=== PATIENT | male | born 1970 | race Caucasian/White ===

== ENCOUNTER → 2018-04-09 09:24 | Outpatient (CLI) | payer BC, SELFPAY ==
[2018-04-09 10:00] LABS: Basophils % 0.3 % (0.1-2.0); Eosinophils # 0.1 K/mm3 (0.0-0.4); Eosinophils % 1.1 % (0.1-12.0); Hematocrit 47.9 % (42.0-52.0); Hemoglobin 15.6 g/dL (14.1-18.0); Lymphocytes # 2.6 K/mm3 (0.7-4.5); Mean Corpuscular HGB Conc 32.6 g/dL (31.8-35.4); Mean Corpuscular Hemoglobin 28.7 pg (27.0-31.2); Mean Platelet Volume 7.9 fl (7.4-10.4); Monocytes # 0.3 K/mm3 (0.1-1.0); Monocytes % 3.1 % (1.7-9.3); Neutrophils # 5.9 K/mm3 (1.8-7.8); Neutrophils % 66.5 % (37.0-80.0); Platelet Count 196 K/mm3 (142-424); Red Blood Count 5.44 M/mm3 (4.60-6.20); Red Cell Distribution Width 13.3 % (11.5-17.5); White Blood Count 8.8 K/mm3 (4.8-10.8)
[2018-04-09 11:02] LABS: Hemoglobin A1C 11.1 % (0.0-7.0)
[2018-04-09 11:24] LABS: Alanine Aminotransferase 22 U/L (12-78); Albumin Level 3.9 gm/dL (3.4-5.0); Alkaline Phosphatase 70 U/L (46-116); Anion Gap 14.5 mEq/L (5-15); Aspartate Amino Transferase 10 U/L (15-37); Bilirubin,Total 0.6 mg/dL (0.2-1.0); Blood Urea Nitrogen 12 mg/dL (7-18); Carbon Dioxide 28 mmol/L (21.0-32.0); Chloride 101 mmol/L (98-107); Chol/HDL Ratio 3.8 (1-3.5); Cholesterol 138 mg/dL (140-200); Creatinine,Serum 0.79 mg/dL (0.70-1.30); Estimated Glomerular Filt Rate 105 ml/min (>60); GFR (African American) 127 ML/MIN (>60); Globulin 4.1 gm/dl (1.3-3.2); Glucose 295 mg/dL (74-106); HDL Cholesterol 36 mg/dL (27-67); LDL Cholesterol 59 mg/dL (0-130); Potassium 4.5 mmoL/L (3.5-5.1); Sodium 139 mmol/L (136-145); T4 (Thyroxine) 10.4 ug/dl (4.7-13.3); Thyroid Stimulating Hormone 2.95 uIU/ml (0.358-3.740); Triglycerides 216 mg/dL (30-200); VLDL Cholesterol 43 mg/dL (0-40)
== END ==
PROVIDERS: Visit Provider Physician Assistant
DX: E11.9 Type 2 diabetes mellitus without complications (principal); E78.5 Hyperlipidemia, unspecified; E03.9 Hypothyroidism, unspecified; E55.9 Vitamin D deficiency, unspecified
CPT/HCPCS: 36415; 80053; 80061; 82652; 83036; 84436; 84443; 85025

== ENCOUNTER → 2018-06-19 09:10 | Outpatient (CLI) | payer BC, SELFPAY ==
[2018-06-19 11:35] LABS: Hemoglobin A1C 10.1 % (0.0-7.0)
== END ==
PROVIDERS: PCP Physician Assistant; Visit Provider Physician Assistant
DX: E11.9 Type 2 diabetes mellitus without complications (principal)
CPT/HCPCS: 36415; 83036

== ENCOUNTER 2019-02-22 08:01 | Emergency (ER) | payer BC, SELFPAY ==
[2019-02-22 08:09] VITALS: BP 157/98; PULSE 108; RESP 18; TEMP 36.9; O2SAT 95; BMI 33.2
--- NOTE | 2019-02-22 08:14 | CT_ITS ---
CT abdomen pelvis wo con CLINICAL INDICATION: Left flank pain, left lower back pain ITS.REASON: left flank ORDERING PHYSICIAN: Kam Scruggs MD PATIENT AGE: 49 years COMPARISON: 03/10/2016 TECHNIQUE: Axial images obtained with sagittal and coronal reformats. All CT scans at the facility use one or more dose reduction, viz: automated exposure control, ma/kV adjustment per patient size (including targeted exams where dose is matched to indication, i.e. head), or iterative reconstruction technique. PROCEDURE: Oral Contrast: None IV Contrast: None . FINDINGS: Lung base images show coronary artery calcifications and gynecomastia. The left hemidiaphragm is somewhat elevated not significant changed. The liver, gallbladder, spleen, adrenal glands, pancreas, and kidneys have an unremarkable unenhanced appearance. No renal or ureteral calculi. No hydronephrosis. Unremarkable appendix. No intestinal obstruction or free air. There is diverticulosis of the sigmoid colon but no evidence of diverticulitis. There is a small right inguinal hernia which contains fat. No acute bony anomalies. IMPRESSION: 1. No acute abdominal or pelvic findings. 2. Small right inguinal hernia containing fat. 3. Coronary artery calcifications. 4. Gynecomastia
--- NOTE | 2019-02-22 08:15 | CT_ITS ---
CT lumbar spine wo con INDICATION: Low back pain ITS.REASON: pain ORDERING PHYSICIAN: Kam Scruggs MD PATIENT AGE: 49 years COMPARISON: None TECHNIQUE: Axial images obtained with sagittal and coronal reformats. All CT scans at the facility use one or more dose reduction, viz: automated exposure control, ma/kV adjustment per patient size (including targeted exams where dose is matched to indication, i.e. head), or iterative reconstruction technique. FINDINGS: There is normal alignment. Mild degenerative disc disease T10-T11 and T11-T12. Minimal bulging disc L2-L3 with mild degenerative disc disease L3-L4: Unremarkable. L4-5: Normal bulging disc eccentric toward the left with mild facet and ligamentum flavum hypertrophy with mild left lateral recess narrowing. L5-S1: Minimal bulging disc. The SI joints have an unremarkable appearance. No fracture or dislocation. No lytic or blastic change. IMPRESSION: 1. Lumbar spondylosis with mild bulging disc and degenerative disc disease at L2-L3 and mild bulging disc at L4-5 slightly eccentric toward the left with minimal bulging disc at L5-S1. 2. No acute fracture or other acute anomaly
--- NOTE | 2019-02-22 08:16 | [facility].EDGENADL ---
ED Disposition Clinical Impression: Pyelonephritis Strain of lumbar region Qualifiers: Encounter type: initial encounter Qualified Code(s): S39.012A - Strain of muscle, fascia and tendon of lower back, initial encounter Disposition: Home, Self-Care Condition on Discharge: Good Instructions: DI for Low Back Pain Prescriptions: levoFLOXacin [Levaquin 500mg tab] 500 mg PO DAILY #10 tab Pantoprazole Sodium [Protonix 40mg tablet] 40 mg PO DAILY 30 Days #30 tab Referrals: Hilaria Zhong PA [Primary Care Provider] - - Critical Care Critical Care Time: No Attestation: On 02/22/19, the high probability of a clinically significant, sudden or life threatening deterioration of the following system(s) required my full and direct attention, intervention and personal management. The time I documented below is in addition to time spent performing reported procedures but includes the following listed in this critical care notation. Medical Decision Making - Medical Records Medical records reviewed: Yes: I reviewed the patient's medical records. - [place] Inquiry Pt receiving controlled substance: No Vital Signs: 02/22/19 08:09 02/22/19 10:06 Temperature 98.5 F Temperature Source Oral Pulse Rate [Right Radial] 108 H 104 H Respiratory Rate 18 18 Blood Pressure [Right Arm] 157/98 H 155/89 H Blood Pressure Mean [Right Arm] 117 111 Blood Pressure Source [Right Arm] Automatic Cuff Automatic Cuff Blood Pressure Position [Right Arm] Sitting Sitting 02 Sat by Pulse Oximetry 95 95 Oxygen Delivery Method Room Air Room Air - Lab Data Lab results reviewed: Yes: I reviewed the patient's lab results. Lab Results 02/22/19 08:30: WBC 11.1 H, RBC 5.54, Hgb 16.8, Hct 47.7, MCV 86.0, MCH 30.3, MCHC 35.2, RDW 13.4, Plt Count 228, MPV 7.8, Neut % (Auto) 72.1, Lymph % (Auto) 22.9, [place] % (Auto) 3.0, Eos % (Auto) 1.5, Baso % (Auto) 0.5, Neut # (Auto) 8.0 H, Lymph # (Auto) 2.5, [place] # (Auto) 0.3, Eos # (Auto) 0.2, Baso # (Auto) 0.1 02/22/19 08:30: Sodium 128 L, Potassium 4.7, Chloride 90 L, Carbon Dioxide 28, Anion Gap 14.7, BUN 15, Creatinine 1.07, Estimated Creat Clear 133, Estimated GFR 74, Est GFR ( Amer) 89, Glucose 467 H*, Calcium 8.9, Total Bilirubin 0.8, AST 15, ALT 25, Alkaline Phosphatase 76, Total Protein 8.1, Albumin 3.6, Globulin 4.5 H, Albumin/Globulin Ratio 0.8 L, Lipase 436 H 02/22/19 08:30: PT 9.7, INR 0.93 02/22/19 08:35: Urine Color Yellow, Urine Appearance Clear, Urine pH 6.0, Ur Specific [place] <= 1.005, Urine Protein Negative, Urine Glucose (UA) 3+, Urine Ketones Negative, Urine Blood Negative, Urine Nitrate Negative, Urine Bilirubin Negative, Urine Urobilinogen 0.2, Ur Leukocyte Esterase Negative, Urine WBC Occasional, Urine Bacteria 1+ 02/22/19 08:59: Stool Occult Blood Positive A Result diagrams: 02/22/19 08:30 02/22/19 08:30 - CT Data CT Scan: Abdomen, Pelvis, L-Spine Time Received: 10:31 (lumbar bulging disc, no obstruction, no free air) ED CT Reviewed: Yes: I have viewed the radiologist's interpretation Medical Decision Narrative: differential d/w pt as cancer, diverticulitis, uti/pyelonephritis, occult renal stone, pud, pancreatitis, hyperglycemia, back strain, protonix, levaquin, motrin, ice,rest, see your doctor, return if worse General Adult HPI - General Chief complaint: Back Pain/Injury Stated complaint: Back Pain severe and blood in stool Time Seen by Provider: 02/22/19 08:16 Mode of Arrival: Ambulatory Limitations: No Limitations Description of Symptoms (Recalled from ER Triage Doc. by RN): Pt reports lower L sided back pain x3 weeks, pt describes pain as constant in nature, reports pain worsens with position changes. Pt reports he had moved a dresser a few weeks ago which is why he thought his back was hurting. Pt reports he had blood noted in his stool lastnight, denies difficulty having BM. - History of Present Illness HPI narrative: mild to mod ache left flank for
--- NOTE | 2019-02-22 08:19 | ED_ITS ---
ED Disposition Clinical Impression: Pyelonephritis Strain of lumbar region Qualifiers: Encounter type: initial encounter Qualified Code(s): S39.012A - Strain of muscle, fascia and tendon of lower back, initial encounter Disposition: Home, Self-Care Condition on Discharge: Good Instructions: DI for Low Back Pain Prescriptions: levoFLOXacin [Levaquin 500mg tab] 500 mg PO DAILY #10 tab Pantoprazole Sodium [Protonix 40mg tablet] 40 mg PO DAILY 30 Days #30 tab Referrals: Hilaria Zhong PA [Primary Care Provider] - - Critical Care Critical Care Time: No Attestation: On 02/22/19, the high probability of a clinically significant, sudden or life threatening deterioration of the following system(s) required my full and direct attention, intervention and personal management. The time I documented below is in addition to time spent performing reported procedures but includes the following listed in this critical care notation. Medical Decision Making - Medical Records Medical records reviewed: Yes: I reviewed the patient's medical records. - [place] Inquiry Pt receiving controlled substance: No Vital Signs: 02/22/19 08:09 02/22/19 10:06 Temperature 98.5 F Temperature Source Oral Pulse Rate [Right Radial] 108 H 104 H Respiratory Rate 18 18 Blood Pressure [Right Arm] 157/98 H 155/89 H Blood Pressure Mean [Right Arm] 117 111 Blood Pressure Source [Right Arm] Automatic Cuff Automatic Cuff Blood Pressure Position [Right Arm] Sitting Sitting 02 Sat by Pulse Oximetry 95 95 Oxygen Delivery Method Room Air Room Air - Lab Data Lab results reviewed: Yes: I reviewed the patient's lab results. Lab Results 02/22/19 08:30: WBC 11.1 H, RBC 5.54, Hgb 16.8, Hct 47.7, MCV 86.0, MCH 30.3, MCHC 35.2, RDW 13.4, Plt Count 228, MPV 7.8, Neut % (Auto) 72.1, Lymph % (Auto) 22.9, [place] % (Auto) 3.0, Eos % (Auto) 1.5, Baso % (Auto) 0.5, Neut # (Auto) 8.0 H, Lymph # (Auto) 2.5, [place] # (Auto) 0.3, Eos # (Auto) 0.2, Baso # (Auto) 0.1 02/22/19 08:30: Sodium 128 L, Potassium 4.7, Chloride 90 L, Carbon Dioxide 28, Anion Gap 14.7, BUN 15, Creatinine 1.07, Estimated Creat Clear 133, Estimated GFR 74, Est GFR ( Amer) 89, Glucose 467 H*, Calcium 8.9, Total Bilirubin 0.8, AST 15, ALT 25, Alkaline Phosphatase 76, Total Protein 8.1, Albumin 3.6, Globulin 4.5 H, Albumin/Globulin Ratio 0.8 L, Lipase 436 H 02/22/19 08:30: PT 9.7, INR 0.93 02/22/19 08:35: Urine Color Yellow, Urine Appearance Clear, Urine pH 6.0, Ur Specific [place] <= 1.005, Urine Protein Negative, Urine Glucose (UA) 3+, Urine Ketones Negative, Urine Blood Negative, Urine Nitrate Negative, Urine Bilirubin Negative, Urine Urobilinogen 0.2, Ur Leukocyte Esterase Negative, Urine WBC Occasional, Urine Bacteria 1+ 02/22/19 08:59: Stool Occult Blood Positive A Result diagrams: 02/22/19 08:30 02/22/19 08:30 - CT Data CT Scan: Abdomen, Pelvis, L-Spine Time Received: 10:31 (lumbar bulging disc, no obstruction, no free air) ED CT Reviewed: Yes: I have viewed the radiologist's interpretation Medical Decision Narrative: differential d/w pt as cancer, diverticulitis, uti/pyelonephritis, occult renal stone, pud, pancreatitis, hyperglycemia, back strain, protonix, levaquin, motrin, ice,rest, see your doctor, return if worse General Adult HPI - General Chief complaint: Back Pain/Injury
[2019-02-22 08:39] LABS: Basophils # 0.1 K/mm3 (0-0.2); Basophils % 0.5 % (0.1-2.0); Eosinophils # 0.2 K/mm3 (0.0-0.4); Eosinophils % 1.5 % (0.1-12.0); Hematocrit 47.7 % (42.0-52.0); Hemoglobin 16.8 g/dL (14.1-18.0); Lymphocytes # 2.5 K/mm3 (0.7-4.5); Lymphocytes % 22.9 % (10-50); Mean Corpuscular HGB Conc 35.2 g/dL (31.8-35.4); Mean Corpuscular Hemoglobin 30.3 pg (27.0-31.2); Mean Platelet Volume 7.8 fl (7.4-10.4); Monocytes # 0.3 K/mm3 (0.1-1.0); Neutrophils % 72.1 % (37.0-80.0); Platelet Count 228 K/mm3 (142-424); Red Blood Count 5.54 M/mm3 (4.60-6.20); Red Cell Distribution Width 13.4 % (11.5-17.5); White Blood Count 11.1 K/mm3 (4.8-10.8)
[2019-02-22 08:41] LABS: Microscopic, Urine URINE MICROSCOPIC (MICROSCOPIC)
[2019-02-22 08:42] LABS: Appearance,Urine CLEAR (Clear); Bilirubin,Urine Negative (Negative); Blood, Urine Negative (Negative); Color,Urine YELLOW (Yellow); Glucose,Urine (UA) 3+ (Negative); Ketones,Urine Negative (Negative); Leukocyte Esterase,Urine Negative (Negative); Nitrate,Urine Negative (Negative); Protein,Urine Negative (Negative); Specific Gravity, Urine <= 1.005 (1.005-1.030); Urobilinogen,Urine 0.2 EU/dl (0.2)
[2019-02-22 08:47] LABS: INR 0.93 (0.9-1.1); Prothrombin Time 9.7 seconds (9.4-11.8)
[2019-02-22 08:53] LABS: Alanine Aminotransferase 25 U/L (12-78); Albumin Level 3.6 gm/dL (3.4-5.0); Albumin/Globulin Ratio 0.8 (1.1-1.8); Alkaline Phosphatase 76 U/L (46-116); Anion Gap 14.7 mEq/L (5-15); Aspartate Amino Transferase 15 U/L (15-37); Bilirubin,Total 0.8 mg/dL (0.2-1.0); Blood Urea Nitrogen 15 mg/dL (7-18); Calcium 8.9 mg/dL (8.5-10.1); Carbon Dioxide 28 mmol/L (21.0-32.0); Chloride 90 mmol/L (98-107); Creatinine Clearance Estimated 133 mL/min (50-200); Creatinine,Serum 1.07 mg/dL (0.70-1.30); Estimated Glomerular Filt Rate 74 ml/min (>60); GFR (African American) 89 ML/MIN (>60); Globulin 4.5 gm/dl (1.3-3.2); Lipase 436 u/L (73-393); Potassium 4.7 mmoL/L (3.5-5.1); Sodium 128 mmol/L (136-145); Total Protein,Serum 8.1 gm/dL (6.4-8.2)
[2019-02-22 08:54] LABS: Glucose 467 mg/dL (74-106)
[2019-02-22 08:57] LABS: Bacteria,Urine 1+ /lpf; WBC,Urine Occasional #/hpf (0-3)
[2019-02-22 09:05] LABS: Occult Blood,Stool Positive (Negative)
--- NOTE | 2019-02-22 09:12 | PC.NURSE ---
Pt to rad.
[2019-02-22 10:06] VITALS: BP 155/89; PULSE 104; RESP 18; O2SAT 95
--- NOTE | 2019-02-22 10:54 | PC.NURSE ---
waiting production support manager back from Hospitalist at [facility] stated they do not have beds available but could place pt on waiting list
[2019-02-22 11:51] VITALS: BP 167/95; PULSE 105; RESP 17; TEMP 36.4; O2SAT 97
== END 2019-02-22 11:52 | disposition home or self-care (01) ==
PROVIDERS: Emergency Provider Emergency Medicine Emergency Medical Services; PCP Physician Assistant
DX: N12 Tubulo-interstitial nephritis, not specified as acute or chronic (principal); S39.012A Strain of muscle, fascia and tendon of lower back, initial encounter; X50.0XXA Overexertion from strenuous movement or load, initial encounter; Y92.019 Unspecified place in single-family (private) house as the place of occurrence of the external cause; E11.65 Type 2 diabetes mellitus with hyperglycemia; Z79.84 Long term (current) use of oral hypoglycemic drugs; E78.5 Hyperlipidemia, unspecified; I10 Essential (primary) hypertension; E03.9 Hypothyroidism, unspecified; F17.210 Nicotine dependence, cigarettes, uncomplicated; Z88.0 Allergy status to penicillin
CPT/HCPCS: 72131; 74176; 80053; 81001; 82272; 83690; 85025; 85610; 96365; 96372; 96375; 99283; G0328; J1956

== ENCOUNTER → 2019-03-11 19:52 | Outpatient (CLI) | payer BC, SELFPAY ==
[2019-03-11 20:44] LABS: Basophils % 0.4 % (0.1-2.0); Eosinophils # 0.1 K/mm3 (0.0-0.4); Eosinophils % 0.6 % (0.1-12.0); Hematocrit 48.3 % (42.0-52.0); Hemoglobin 15.7 g/dL (14.1-18.0); Lymphocytes % 27.7 % (10-50); Mean Corpuscular HGB Conc 32.5 g/dL (31.8-35.4); Mean Corpuscular Hemoglobin 28.4 pg (27.0-31.2); Mean Corpuscular Volume 87.2 fl (80-94); Mean Platelet Volume 9.2 fl (7.4-10.4); Monocytes # 0.2 K/mm3 (0.1-1.0); Monocytes % 3.4 % (1.7-9.3); Neutrophils # 4.9 K/mm3 (1.8-7.8); Neutrophils % 67.9 % (37.0-80.0); Platelet Count 184 K/mm3 (142-424); Red Blood Count 5.54 M/mm3 (4.60-6.20); Red Cell Distribution Width 13.1 % (11.5-17.5); White Blood Count 7.2 K/mm3 (4.8-10.8)
[2019-03-11 21:12] LABS: Albumin Level 3.5 gm/dL (3.4-5.0); Albumin/Globulin Ratio 0.8 (1.1-1.8); Alkaline Phosphatase 81 U/L (46-116); Anion Gap 14.6 mEq/L (5-15); Bilirubin,Total 0.4 mg/dL (0.2-1.0); Blood Urea Nitrogen 12 mg/dL (7-18); Carbon Dioxide 29 mmol/L (21.0-32.0); Chloride 95 mmol/L (98-107); Chol/HDL Ratio 7.5 (1-3.5); Cholesterol 248 mg/dL (140-200); Creatinine,Serum 0.83 mg/dL (0.70-1.30); Estimated Glomerular Filt Rate 99 ml/min (>60); GFR (African American) 120 ML/MIN (>60); Globulin 4.2 gm/dl (1.3-3.2); HDL Cholesterol 33 mg/dL (27-67); Potassium 4.6 mmoL/L (3.5-5.1); Sodium 134 mmol/L (136-145); T4 (Thyroxine) 8.7 ug/dl (4.7-13.3); Thyroid Stimulating Hormone 2.57 uIU/ml (0.358-3.740); Total Protein,Serum 7.7 gm/dL (6.4-8.2)
[2019-03-11 22:39] LABS: Hemoglobin A1C 10.3 % (0.0-7.0)
[2019-03-11 23:06] LABS: Alanine Aminotransferase 28 U/L (12-78)
[2019-03-11 23:12] LABS: Glucose 510 mg/dL (74-106)
[2019-03-11 23:13] LABS: Triglycerides 1125 mg/dL (30-200)
[2019-03-11 23:14] LABS: Aspartate Amino Transferase 15 U/L (15-37)
[2019-03-14 07:45] LABS: Vitamin D 25 Hydroxy 10.5 ng/mL (30.0-100.0)
== END ==
PROVIDERS: Visit Provider Physician Assistant
DX: E11.9 Type 2 diabetes mellitus without complications (principal); E03.9 Hypothyroidism, unspecified; E55.9 Vitamin D deficiency, unspecified
CPT/HCPCS: 80053; 80061; 82652; 83036; 84436; 84443; 85025

== ENCOUNTER → 2019-07-08 09:08 | Outpatient (CLI) | payer BC, SELFPAY ==
[2019-07-08 09:46] LABS: Basophils % 0.4 % (0.1-2.0); Eosinophils # 0.1 K/mm3 (0.0-0.4); Eosinophils % 0.9 % (0.1-12.0); Hematocrit 51.4 % (42.0-52.0); Hemoglobin 16.6 g/dL (14.1-18.0); Lymphocytes # 2.2 K/mm3 (0.7-4.5); Lymphocytes % 19.9 % (10-50); Mean Corpuscular HGB Conc 32.3 g/dL (31.8-35.4); Mean Corpuscular Hemoglobin 29.8 pg (27.0-31.2); Mean Corpuscular Volume 92.1 fl (80-94); Mean Platelet Volume 8.8 fl (7.4-10.4); Monocytes # 0.5 K/mm3 (0.1-1.0); Monocytes % 4.6 % (1.7-9.3); Neutrophils % 74.2 % (37.0-80.0); Platelet Count 255 K/mm3 (142-424); Red Blood Count 5.58 M/mm3 (4.60-6.20); Red Cell Distribution Width 13.8 % (11.5-17.5); White Blood Count 10.8 K/mm3 (4.8-10.8)
[2019-07-08 10:24] LABS: Alanine Aminotransferase 17 U/L (12-78); Albumin Level 3.9 gm/dL (3.4-5.0); Albumin/Globulin Ratio 0.9 (1.1-1.8); Alkaline Phosphatase 83 U/L (46-116); Anion Gap 15.2 mEq/L (5-15); Aspartate Amino Transferase 16 U/L (15-37); Bilirubin,Total 0.6 mg/dL (0.2-1.0); Blood Urea Nitrogen 11 mg/dL (7-18); Calcium 9.6 mg/dL (8.5-10.1); Carbon Dioxide 29 mmol/L (21.0-32.0); Chloride 94 mmol/L (98-107); Chol/HDL Ratio 5.4 (1-3.5); Cholesterol 198 mg/dL (140-200); Creatinine,Serum 0.78 mg/dL (0.70-1.30); Estimated Glomerular Filt Rate 106 ml/min (>60); GFR (African American) 129 ML/MIN (>60); Globulin 4.4 gm/dl (1.3-3.2); Glucose 308 mg/dL (74-106); HDL Cholesterol 37 mg/dL (27-67); Potassium 4.2 mmoL/L (3.5-5.1); Sodium 134 mmol/L (136-145); T4 (Thyroxine) 10.3 ug/dl (4.7-13.3); Thyroid Stimulating Hormone 3.58 uIU/ml (0.358-3.740); Total Protein,Serum 8.3 gm/dL (6.4-8.2)
[2019-07-08 10:25] LABS: Triglycerides 548 mg/dL (30-200)
[2019-07-11 17:02] LABS: Vitamin D 25 Hydroxy 14.9 ng/mL (30.0-100.0)
[2019-07-11 17:03] LABS: Microalbumin, Urine 58.9 ug/mL (Not Estab.)
== END ==
PROVIDERS: PCP Emergency Medicine; Visit Provider Physician Assistant
DX: E03.9 Hypothyroidism, unspecified (principal); E11.9 Type 2 diabetes mellitus without complications; E55.9 Vitamin D deficiency, unspecified; E78.5 Hyperlipidemia, unspecified; I10 Essential (primary) hypertension; Z79.84 Long term (current) use of oral hypoglycemic drugs
CPT/HCPCS: 36415; 80053; 80061; 82043; 82652; 83036; 84436; 84443; 85025

== ENCOUNTER → 2021-05-31 17:06 | Outpatient (CLI) | payer BC, SELFPAY | PROVIDERS: Visit Provider Nurse Practitioner Family | DX: Z20.822 Contact with and (suspected) exposure to COVID-19 (principal); U07.1 COVID-19 | CPT/HCPCS: U0003 ==

== ENCOUNTER → 2023-04-03 14:50 | Outpatient (CLI) | payer OTHER, SELFPAY ==
[2023-04-03 13:12] LABS: Basophils % 0.4 % (0.1-2.0); Eosinophils # 0.1 K/mm3 (0.0-0.4); Eosinophils % 0.7 % (0.1-12.0); Hematocrit 46.9 % (42.0-52.0); Hemoglobin 15.5 g/dL (14.1-18.0); Lymphocytes # 1.6 K/mm3 (0.7-4.5); Lymphocytes % 18.3 % (10-50); Mean Corpuscular HGB Conc 33.1 g/dL (31.8-35.4); Mean Corpuscular Volume 87.6 fl (80-94); Mean Platelet Volume 10.3 fl (7.4-10.4); Monocytes # 0.3 K/mm3 (0.1-1.0); Monocytes % 3.8 % (1.7-9.3); Neutrophils # 6.8 K/mm3 (1.8-7.8); Neutrophils % 76.9 % (37.0-80.0); Platelet Count 231 K/mm3 (142-424); Red Blood Count 5.36 M/mm3 (4.60-6.20); Red Cell Distribution Width 13.6 % (11.5-17.5); White Blood Count 8.8 K/mm3 (4.8-10.8)
[2023-04-03 13:19] LABS: Alanine Aminotransferase 17 U/L (12-78); Albumin Level 4.2 g/dl (3.5-5.0); Albumin/Globulin Ratio 1.2 (1.1-1.8); Alkaline Phosphatase 89 U/L (38-126); Anion Gap 12.6 mEq/L (5-15); Aspartate Amino Transferase 24 U/L (17-59); Blood Urea Nitrogen 10 mg/dl (9-20); Calcium 9.2 mg/dl (8.4-10.2); Carbon Dioxide 27 mmol/L (22.0-30.0); Chloride 96 mmol/L (98-107); Chol/HDL Ratio 5.5 (1-3.5); Cholesterol 289 mg/dl (140-200); Estimated Glomerular Filt Rate 226 ml/min (>60); GFR (African American) 273 ML/MIN (>60); Globulin 3.4 g/dL (1.3-3.2); Glucose 385 mg/dl (74-100); HDL Cholesterol 53 mg/dl (40-60); Potassium 4.6 mmoL/L (3.5-5.1); Sodium 131 mmol/L (136-145); Total Protein,Serum 7.6 g/dl (6.3-8.2); Triglycerides 361 mg/dl (30-150); VLDL Cholesterol 72 mg/dL (0-40)
[2023-04-03 13:31] LABS: Direct LDL Cholesterol 150.48 mg/dL (100-129)
[2023-04-03 13:50] LABS: Prostate Specific Ag Screen 0.5 ng/ml (0.0-4.0); Thyroid Stimulating Hormone 4.49 uIU/mL (0.465-4.68)
[2023-04-03 13:52] LABS: 25-OH Vitamin D, Total < 12.8 ng/mL (30-100)
[2023-04-03 23:24] LABS: Creatinine,Urine Random 46 mg/dL (Not Estab.)
[2023-04-04 00:39] LABS: Microalbumin/Creatinine Ratio 6916.7
== END ==
PROVIDERS: PCP Physician Assistant; Visit Provider Physician Assistant
DX: E11.9 Type 2 diabetes mellitus without complications (principal); E03.9 Hypothyroidism, unspecified; E78.5 Hyperlipidemia, unspecified; I10 Essential (primary) hypertension; E55.9 Vitamin D deficiency, unspecified; Z79.84 Long term (current) use of oral hypoglycemic drugs; Z12.5 Encounter for screening for malignant neoplasm of prostate
CPT/HCPCS: 80053; 80061; 82043; 82306; 82570; 84443; 84681; 85025; G0103

== ENCOUNTER 2024-09-04 19:27 | Inpatient (IN) | payer BC, SELFPAY ==
[2024-09-04 19:27] VITALS: BP 181/85; PULSE 78; RESP 19; TEMP 36.6; O2SAT 90; BMI 29.8
[2024-09-04] MEDS: DEXTROSE 50% 50ML SYRINGE (CRASH CART) 50 ML IVP ×2 (19:30→20:02)
--- NOTE | 2024-09-04 19:30 | ECG_ITS ---
APPROVED REPORT Exam: Resting ECG HR:69 bpm ECG Measurements Heart Rate 69 AXES OR 154 P 66 QRSd 107 QRS 71 QT 455 T 56 QTc 474 Conclusion SINUS RHYTHM WITH OCCASIONAL VENTRICULAR PREMATURE COMPLEXES LEFT VENTRICULAR HYPERTROPHY AND ST-T CHANGE [VOLTAGE CRITERIA PLUS ST/T ABNORMALITY] ABNORMAL ECG UNCONFIRMED REPORT Electronically signed by : MARCO MUNGUIA, 09/05/2024 06:27:29
--- NOTE | 2024-09-04 19:45 | PC.NURSE ---
Bonifacio SALAZAR notified of critical glucose
--- NOTE | 2024-09-04 19:47 | XR_ITS ---
PROCEDURE INFORMATION: Exam: XR Chest Exam date and time: 09/04/2024 7:45 PM Age: 54 years old Clinical indication: Shortness of breath; Additional info: AMS. SOA TECHNIQUE: Imaging protocol: Radiologic exam of the chest. Views: 1 view. COMPARISON: [id number] CT abdomen pelvis wo con 02/22/2019 9:14 AM FINDINGS: Lungs: Very faint airspace opacities are seen at both lung bases. Pleural spaces: Unremarkable. No pleural effusion. No pneumothorax. Heart/Mediastinum: The heart is at the upper limits of normal for size. Bones/joints: Unremarkable. IMPRESSION: Faint bibasilar airspace disease may represent pneumonia.
--- NOTE | 2024-09-04 19:50 | PC.NURSE ---
NIHSS 0 at this time. . RT notified of VBG order
[2024-09-04 19:55] LABS: Alanine Aminotransferase 15 U/L (12-78); Albumin Level 3.6 g/dl (3.5-5.0); Albumin/Globulin Ratio 0.8 (1.1-1.8); Alkaline Phosphatase 144 U/L (38-126); Anion Gap 5.5 mEq/L (5-15); Aspartate Amino Transferase 35 U/L (17-59); Bilirubin,Total 0.7 mg/dl (0.2-1.3); Blood Urea Nitrogen 16 mg/dl (9-20); Calcium 8.3 mg/dl (8.4-10.2); Carbon Dioxide 35 mmol/L (22.0-30.0); Chloride 98 mmol/L (98-107); Creatinine Clearance Estimated 151 mL/min (50-200); Estimated Glomerular Filt Rate 101 ml/min (>60); GFR (African American) 122 ML/MIN (>60); Globulin 4.3 g/dL (1.3-3.2); Potassium 3.5 mmoL/L (3.5-5.1); Sodium 135 mmol/L (136-145); Total Protein,Serum 7.9 g/dl (6.3-8.2)
[2024-09-04 19:57] LABS: Glucose 32 mg/dl (74-100)
[2024-09-04 19:58] LABS: Basophils % 0.5 % (0.1-2.0); Eosinophils # 0.1 K/mm3 (0.0-0.4); Eosinophils % 1.7 % (0.1-12.0); Hematocrit 33.2 % (42.0-52.0); Hemoglobin 10.7 g/dL (14.1-18.0); Lymphocytes # 1.1 K/mm3 (0.7-4.5); Lymphocytes % 14.6 % (10-50); Mean Corpuscular HGB Conc 32.3 g/dL (31.8-35.4); Mean Corpuscular Hemoglobin 27.4 pg (27.0-31.2); Mean Corpuscular Volume 84.9 fl (80-94); Mean Platelet Volume 7.4 fl (7.4-10.4); Monocytes # 0.5 K/mm3 (0.1-1.0); Monocytes % 6.7 % (1.7-9.3); Neutrophils % 76.5 % (37.0-80.0); Platelet Count 306 K/mm3 (142-424); Red Blood Count 3.91 M/mm3 (4.60-6.20); Red Cell Distribution Width 15.9 % (11.5-17.5); White Blood Count 7.8 K/mm3 (4.8-10.8)
[2024-09-04 20:05] LABS: Lactate Venous 1.7 mmol/L (0.4-2.0); VBG Base Excess 3.8 mmol/L (-2.4-2.3); VBG HCO3 29.5 mmol/L (23-30); VBG Oxygen Saturation 81.5 % (50-70); VBG PCO2 55.1 mmol/L (35-51); VBG PH 7.35 mmol/L (7.31-7.41); VBG PO2 48.7 mmol/L (28-40); VBG Total CO2 31.2 mmol/L (23-27)
--- NOTE | 2024-09-04 20:05 | [facility].EDGENADL ---
Discharge Plan Disposition Patient Disposition: Admitted Condition: Fair Clinical Impressions Clinical Impression: Pneumonia, Hypoglycemic episode in patient with diabetes mellitus, Infection of left foot Discharge ED Provider: Alexey Graves Adult HPI <MARTIN Meade - Last Filed: 09/04/24 21:39> General Chief complaint: Hyper/Hypoglycemia Stated complaint: diabetic emergency Time Seen by Provider: 09/04/24 19:49 Mode of Arrival: EMS Source of Information: Patient, EMS and Medical Record Limitations: No Limitations History of Present Illness HPI narrative: Patient is a 54-year-old male who presents to the emergency department for hyperglycemia via EMS, per nursing staff who obtained history via EMS the patient was altered and quite lethargic at home was found to have a glucose reading that was 49 at the scene, thus 2 oral glucose/gels were given, patient on arrival had low POC glucose was given D50 amp upon arrival to the ED, is more alert oriented currently. My bedside examination of the patient, patient is alert oriented x 3, he is pale but GCS is 15. Patient tells me that he has a cough congestion for 2 to 3 days that is productive, he has known sick contact being a coworker denies any chest pain shortness of breath, any nausea vomiting constipation diarrhea denies urinary type symptomatology, denies any abdominal pain. He states he ate lunch today turkey sandwich he states he was sitting down to eat his dinner, when he felt lightheaded and evidently became quite altered and confused he became disoriented had no real episode of LOC, thus prompted ambulance call. Past medical history consistent with stage I chronic kidney disease, 2 diabetes, hyperlipidemia, hypothyroidism, he is on 3 antihyperglycemic's. Currently per . Also of note, patient was recently treated for a puncture wound of the sole of the patient's foot proximately 4 weeks ago finished a round of ciprofloxacin antibiotic, he has been wrapping the wound, denies any pain from the wound. Denies any history of substance use. Triage vitals unremarkable, patient is currently on 2 L nasal cannula from EMS. Onset (ago): hour(s) Related Data Home Medications ?Medication ?Instructions ?Recorded ?Confirmed glimepiride 4 mg tablet 4 mg PO DAILY 09/04/24 09/05/24 hydrochlorothiazide 25 mg tablet 25 mg PO DAILY 09/04/24 09/05/24 levothyroxine 25 mcg tablet 25 mcg PO DAILY 09/04/24 09/05/24 metformin 500 mg tablet 500 mg PO BID 09/04/24 09/05/24 sitagliptin phosphate 100 mg 100 mg PO DAILY 09/04/24 09/05/24 tablet (Januvia) atorvastatin 20 mg tablet 20 mg PO DAILY 09/05/24 09/05/24 buspirone 5 mg tablet 5 mg PO BID 09/05/24 09/05/24 ergocalciferol (vitamin D2) 1,250 1,250 mcg PO WEEKLY 09/05/24 09/05/24 mcg (50,000 unit) capsule lisinopril 40 mg tablet 40 mg PO DAILY 09/05/24 09/05/24 metoprolol succinate 25 mg 25 mg PO DAILY 09/05/24 09/05/24 tablet,extended release 24 hr semaglutide 0.25 mg or 0.5 mg (2 0.25 mg SQ WEEKLY 09/05/24 09/05/24 mg/3 mL) subcutaneous pen injector (Ozempic) Allergies Allergy/AdvReac Type Severity Reaction Status Date / Time vancomycin Allergy Mild Rash Verified 09/04/24 23:35 erythromycin base Allergy Unknown Unknown Verified 09/04/24 23:35 (ERYTHROMYCIN BASE) allergy reaction Penicillins (PENICILLINS) Allergy Unknown Unknown Verified 09/04/24 23:35 allergy reaction aspirin AdvReac Intermediate GI bleed Verified 06/07/23 13:30 [facility] <MARTIN Meade - Last Filed: 09/04/24 21:39> [facility] Disclaimer: The information contained in this section may have been updated after the patient was seen, as this information can be updated by other users. Medical History Diabetes Hyperlipidemia Hypertension Hypothyroidism Microalbuminuria Vitamin D deficiency Family History (Updated 09/04/24 @ 23:46 by Cherelle De La Vega RN) Other No significant family history Social History (Updated 09/04/24 @ 23:46 by Cherelle De La Vega RN) Smoking Status: Current every day smoker tobacco type: cigarettes packs per day: 1 alcohol intake: never substance use type: denies use current occupational status: employed Travel in the last 8 weeks: None Have you lived/traveled outside [place] in past 30 days?: No Contact w/someone who lives/traveled outside US past 30 days?: No Exposure to someone with infectious disease in past 14 days?: No Do you have a fever (greater than 100.4 F or 38 C)?: No Have you tested positive for COVID-19: No Exposed to someone with COVID-19 in past 14 days?: No Do you have a sore throat?: No Do you have a cough?: No Do you have any weakness?: No Are you experiencing any nausea/vomitting?: No Do you have any diarrhea?: No Are you experiencing any unusual bleeding?: No Do you have any muscle aches/pain?: No Do you have any abdominal pain?: No Are you experiencing loss of taste or smell?: No Other Medical History Have you received the Flu Vaccine for this season: No Have you received the Pneumonia Vaccine: No <MARTIN Meade - Last Filed: 09/04/24 21:39> ROS Obtained: Yes All systems reviewed & no additional complaints except as documented Physical Exam <MARTIN Meade - Last Filed: 09/04/24 21:39> General General appearance: alert and in no apparent distress Head Head exam: atraumatic and normocephalic Eye Eye exam: Present PERRL and EOMI ENT ENT exam: Present mucous membranes moist Neck Neck exam: Present normal inspection Chest Chest inspection: Present normal inspection and symmetric chest wall rise Respiratory Respiratory exam: Present normal lung sounds bilaterally; Absent respiratory distress or wheezes Cardiovascular Cardiovascular exam: Present regular rate and normal rhythm Abdominal Exam Abdominal exam: Present soft; Absent tenderness, guarding, rebound or rigidity Extremities Exam Extremities exam: Present normal inspection, edema, joint swelling and other (There is mild eschar and wound that appears to be a diabetic pressure ulcer could correspond with ongoing puncture wound to the plantar aspect of the patient's left foot, otherwise neurovascular intact. With some mild soft tissue swelling. Wound looks to be appropriate here and stage III.) Neurological Exam Neurological exam: Present alert and oriented X3 Psychiatric Psychiatric exam: Present normal affect Skin Skin exam: Present warm and dry Medical Decision Making <MARTIN Meade - Last Filed: 09/04/24 21:39> Medical Records Medical records reviewed: Yes I reviewed the patient's medical records. Screening: Per USPSTF and CDC recommendations, given the prevalence of disease in our region, it is our hospital?s policy to screen for HIV and viral Hepatitis for all patients aged 18 and over and those with ongoing risk factors. [place] Inquiry Pt receiving controlled substance: No [place] was queried for this patient: No Vital Signs: 09/04/24 19:27 09/04/24 22:14 Temperature 97.9 F 98.1 F Temperature Source Oral Oral Pulse Rate 90 Pulse Rate [Right] 78 Respiratory Rate 19 21 Blood Pressure 181/100 H Blood Pressure [Right Arm] 181/85 H Blood Pressure Mean [Right Arm] 117 Blood Pressure Source Automatic Cuff Blood Pressure Source [Right Arm] Automatic Cuff Blood Pressure Position Sitting 02 Sat by Pulse Oximetry 90 L Oxygen Delivery Method Nasal Cannula Nasal Cannula Oxygen Flow Rate (LPM) 3 2 Lab Data Lab results reviewed: Yes I reviewed the patient's lab results. Lab Results 09/04/24 19:30: WBC 7.8, RBC 3.91 L, Hgb 10.7 L, Hct 33.2 L, MCV 84.9, MCH 27.4, MCHC 32.3, RDW 15.9, Plt Count 306, MPV 7.4, Neut % (Auto) 76.5, Lymph % (Auto) 14.6, [place] % (Auto) 6.7, Eos % (Auto) 1.7, Baso % (Auto) 0.5, Neut # (Auto) 6.0, Lymph # (Auto) 1.1, [place] # (Auto) 0.5, Eos # (Auto) 0.1, Baso # (Auto) 0.0, ESR 126 H, Sodium 135 L, Potassium 3.5, Chloride 98, Carbon Dioxide 35 H, Anion Gap 5.5, BUN 16, Creatinine 0.80, Estimated Creat Clear 151, Estimated GFR 101, Est GFR ( Amer) 122, Glucose 32 L*, Calcium 8.3 L, Total Bilirubin 0.7, AST 35, ALT 15, Alkaline Phosphatase 144 H, Troponin I 0.03, Total Protein 7.9, Albumin 3.6, Globulin 4.3 H, Albumin/Globulin Ratio 0.8 L, Plasma/Serum Alcohol < 10, HIV 1&2 Antibody Rapid Nonreactive 09/04/24 19:46: VBG pH 7.35, VBG pCO2 55.1 H, VBG pO2 48.7 H, VBG HCO3 29.5, VBG Total CO2 31.2 H, VBG O2 Saturation 81.5 H, VBG Base Excess 3.8 H, VBG Lactic Acid 1.7 09/04/24 20:40: Urine Color Yellow, Urine Appearance Clear, Urine pH 6.0, Ur Specific [place] 1.020, Urine Protein 3+ A, Urine Glucose (UA) Trace, Urine Ketones Negative, Urine Blood 1+ A, Urine Nitrate Negative, Urine Bilirubin Negative, Urine Urobilinogen 1.0, Ur Leukocyte Esterase Negative, Urine RBC 10-20, Urine WBC 3-5, Ur Squamous Epith Cells 5-10, Urine Bacteria 1+, Urine Opiates Screen Negative, Urine Methadone Screen Negative, Ur Barbituates Screen Negative, Ur Phencyclidine Scrn Negative, Ur Amphetamines Screen Negative, U Benzodiazepines Scrn Negative, Urine Cocaine Screen Negative, U Marijuana (THC) Screen Negative 09/05/24 06:12 09/05/24 06:12 Orders (Tests/Meds): ED MEDICATIONS Generic Name Dose Route Start Last Admin Trade Name Freq PRN Reason Stop Dose Admin Acetaminophen 650 mg 09/04/24 22:31 Acetaminophen 325mg Tab PO 10/04/24 22:30 Q4HP PRN Fever or Mild Pain (1-3) Al Hydrox/Mg Hydrox/Simethicone 30 ml 09/04/24 22:31 Aluminum/Magnesium/Simethicone 30ml Udc PO 10/04/24 22:30 QIDP PRN Dyspepsia Albuterol/Ipratropium 3 ml 09/05/24 12:00 09/05/24 12:47 Ipratropium/Albuterol 3 Ml Neb IH 10/05/24 11:59 3 ml Q6RT ZAY Administration Atorvastatin Calcium 20 mg 09/05/24 21:00 Atorvastatin 20mg Tablet PO 10/05/24 20:59 HS ZAY Enoxaparin Sodium 40 mg 09/05/24 09:00 09/05/24 09:20 Enoxaparin 40mg/0.4ml Syringe SUBCUT 10/05/24 08:59 40 mg DAILY ZAY Administration Furosemide 40 mg 09/05/24 16:00 Furosemide 40mg/4ml Vial IV 10/05/24 15:59 BIDL ZAY Hydralazine HCl 10 mg 09/04/24 23:44 09/05/24 11:49 Hydralazine 20mg/Ml Vial IV 10/04/24 23:43 10 mg Q6HP PRN Administration SBP>160 Hydrochlorothiazide 25 mg 09/05/24 09:00 09/05/24 09:20 Hydrochlorothiazide 25mg Tablet PO 10/05/24 08:59 25 mg DAILY ZAY Administration Cefepime HCl 1 gm/ Sodium 50 mls @ 100 mls/hr 09/05/24 04:00 09/05/24 04:28 Chloride IV 09/12/24 03:59 100 mls/hr Q12H ZAY Administration Linezolid 600 mg in 300 mls @ 300 mls/hr 09/05/24 11:00 09/05/24 11:49 Zyvox 600mg/300ml Premix Bag IV 09/12/24 10:59 300 mls/hr Q12H ZAY Administration Doxycycline Hyclate 100 mg/ 250 mls @ 167 mls/hr 09/05/24 12:00 09/05/24 13:22 Sodium Chloride IV 09/15/24 11:59 167 mls/hr Q12H ZAY Administration Insulin Human Lispro 0 unit 09/05/24 06:00 09/05/24 11:49 Humalog 100 Units/Ml 10ml Vial (Ssi) SUBCUT 10/05/24 05:59 Not Given ACHS ZAY Protocol Labetalol HCl 10 mg 09/04/24 23:44 Labetalol 5mg/Ml 20ml Mdv IV 10/04/24 23:43 Q6HP PRN Hypertensive Emergency Levothyroxine Sodium 25 mcg 09/05/24 09:00 09/05/24 09:20 Levothyroxine 25mcg (0.025mg) Tab PO 10/05/24 08:59 25 mcg DAILYDM ZAY Administration Lisinopril 40 mg 09/05/24 09:00 09/05/24 09:20 Lisinopril 20mg Tablet PO 10/05/24 08:59 40 mg DAILY ZAY Administration Metoprolol Succinate 25 mg 09/05/24 09:00 09/05/24 09:20 Metoprolol Succinate Xl 25mg Tablet PO 10/05/24 08:59 25 mg DAILY ZAY Administration Morphine Sulfate 4 mg 09/04/24 22:36 Morphine 4mg/Ml Syringe IV 10/04/24 22:35 Q4HP PRN Severe Pain (7-10) Nicotine 21 mg 09/04/24 22:36 Nicotine 21mg/24hr Patch TD 10/04/24 22:35 DAILYP PRN Nicotine Cravings Ondansetron HCl 4 mg 09/04/24 22:31 Ondansetron 4mg/2ml Vial IV 10/04/24 22:30 Q8HP PRN Nausea Sodium Chloride 3 ml 09/04/24 22:20 Sodium Chloride 3% 15ml Neb IH 10/04/24 22:19 ONCE PRN INDUCE SPUTUM COLLECTION Sodium Chloride 10 ml 09/05/24 08:21 Sodium Chloride 0.9% 10ml Flush Syringe IV 10/05/24 08:20 NEEDED PRN Maintain IV Site Discontinued Medications Generic Name Dose Route Start Last Admin Trade Name Freq PRN Reason Stop Dose Admin Dextrose 50 ml 09/04/24 19:43 09/04/24 20:02 Dextrose 50% 50ml Syringe (Crash Cart) IVP 09/04/24 19:44 50 ml ONCE ONE Administration Dextrose 50 ml 09/04/24 19:30 09/04/24 19:30 Dextrose 50% 50ml Syringe (Crash Cart) IVP 09/04/24 19:31 50 ml ONCE ONE Administration Vancomycin HCl 1,000 mg/ 250 mls @ 125 mls/hr 09/04/24 21:15 09/04/24 22:57 Sodium Chloride IV 09/14/24 21:14 125 mls/hr Q24H ZAY Administration Piperacillin Sod/Tazobactam 50 mls @ 100 mls/hr 09/04/24 21:10 09/04/24 21:51 Sod 2.25 gm/ Sodium Chloride IV 09/04/24 21:39 100 mls/hr ONCE ONE Administration Dextrose/Sodium Chloride 1,000 mls @ 75 mls/hr 09/04/24 22:30 09/04/24 23:24 Dextrose 5%-0.9% Nacl Iv Soln IV 09/05/24 10:29 75 mls/hr .[id number] ZAY Administration Iopamidol 190 ml 09/04/24 21:26 09/04/24 21:27 Iopamidol-370 (76%);100ml Bottle IV 09/04/24 21:27 190 ml ONCE ONE Administration Miscellaneous 1 each 09/04/24 22:00 09/05/24 07:48 Vancomycin Consult Request NOTAPPLIC 10/04/24 21:59 Not Given CONSULT PHARMACY [facility] Potassium Chloride 40 meq 09/05/24 06:00 09/05/24 05:26 Potassium Chloride 20meq Tab PO 09/05/24 10:01 40 meq Q4HWA ZAY Administration Sodium Chloride 10 ml 09/04/24 21:26 09/04/24 21:27 Sodium Chloride 0.9% 10ml Syr (Rad Only) IV 09/04/24 21:27 10 ml ONCE ONE Administration Sodium Chloride 50 ml 09/04/24 21:26 09/04/24 21:27 0.9 % Sodium Chloride 50 Ml Vial IV 09/04/24 21:27 50 ml ONCE ONE Administration ORDERS Category Date Time Status CT Tib/Fib LT w con Stat Cat Scan 09/04/24 20:40 Completed CTA Chest [CT angio chest PE protocol] Stat Cat Scan 09/04/24 21:01 Completed POCUS Point of Care (ER Only) Stat Exams 09/04/24 21:02 Completed XR chest portable Stat Exams 09/04/24 19:47 Completed Blood alcohol [Ethyl Alcohol] Stat Lab 09/04/24 19:30 Completed Complete Blood Count Auto Diff Stat Lab 09/04/24 19:30 Completed Comprehensive Metabolic Panel Stat Lab 09/04/24 19:30 Completed Drug Screen,Urine Stat Lab 09/04/24 20:40 Completed HIV (1&2) Antibody Rapid Stat Lab 09/04/24 19:30 Completed Hep C Ab with Reflex to RNA Stat Lab 09/04/24 19:30 Received Troponin I Q3H Lab 09/04/24 22:40 Completed Troponin I Q3H Lab 09/05/24 01:50 Completed Troponin I Stat Lab 09/04/24 19:30 Completed Urinalysis and Microscopic Stat Lab 09/04/24 20:40 Completed Blood Culture Stat Micro 09/04/24 21:40 Received VBG [Venous Blood Gas] Stat RT 09/04/24 19:46 Completed Medical Decision Narrative: 54-year-old male presents emergency department with an hypoglycemic episode, differential diagnosis to include but not limited to Over use of antihyperglycemic's, EtOH, infection, malignancy, starvation, pneumonia, cardiac arrhythmia, electrolyte disturbance Discussed patient's case with attending physician Dr. Graves and examined the patient as well. Will obtain basic laboratory studies, chest x-ray, urinalysis, UDS, ethyl alcohol level, blood cultures, EKG, 1 amp of D50 was given on arrival to the ED, will give additional amp of D50. I along with the attending physician reviewed the patient's EKG, sinus rhythm with occasional PVCs, 69 bpm MS within normal limits, QT interval within normal limits there is no STEMI. CBC is notable for erythrocyte pi?a at 3.91 hemoglobin and hematocrit decreased to 10.7/33.2. CMP is notable for elevated CO2 at 35, glucose level on CMP was 32 this is prior to amp of D50 given. Troponin within normal limits. pH within normal limits, CO2 is minimally elevated at 55.1, bicarb within normal limits. VBG lactic acid is normal limits I reviewed the patient's chest x-ray along the corresponding radiologic report faint bibasilar airspace disease may represent pneumonia. Plasma serum alcohol level within normal limits. Repeat POC glucose at approximately 8:29 PM was 177 After examining the patient's left lower extremity diabetic foot wound/puncture wound, will obtain CT of the tib-fib on the left with contrast as well as CT foot on the left with contrast. Will also obtain POCUS ultrasound for further evaluation as characterization. Urine is notable for +3 proteinuria +1 hematuria, give nitrites negative leukocyte Estrace. Obtain CTA chest with and without contrast for further evaluation. Start the patient on vancomycin 1000 mg IV, will start Zosyn IV UDS negative. CTA and CT lower extremity of the left is pending. I discussed this patient's case with the hospitalist Dr. Garcia at approximately 9:30 PM he is in agreement with current admission plan/treatment plan for hypoglycemic episodes, in the setting of pneumonia/soft tissue plantar infection versus diabetic ulcer of the patient's left foot. Discussed need for admission with the patient family at the bedside patient and family agree with current treatment plan/admission plan. <Alexey Graves MD - Last Filed: 09/05/24 16:24> Vital Signs: 09/04/24 19:27 09/04/24 22:14 Temperature 97.9 F 98.1 F Temperature Source Oral Oral Pulse Rate 90 Pulse Rate [Right] 78 Respiratory Rate 19 21 Blood Pressure 181/100 H Blood Pressure [Right Arm] 181/85 H Blood Pressure Mean [Right Arm] 117 Blood Pressure Source Automatic Cuff Blood Pressure Source [Right Arm] Automatic Cuff Blood Pressure Position Sitting 02 Sat by Pulse Oximetry 90 L Oxygen Delivery Method Nasal Cannula Nasal Cannula Oxygen Flow Rate (LPM) 3 2 Lab Data Lab Results 09/04/24 19:30: WBC 7.8, RBC 3.91 L, Hgb 10.7 L, Hct 33.2 L, MCV 84.9, MCH 27.4, MCHC 32.3, RDW 15.9, Plt Count 306, MPV 7.4, Neut % (Auto) 76.5, Lymph % (Auto) 14.6, [place] % (Auto) 6.7, Eos % (Auto) 1.7, Baso % (Auto) 0.5, Neut # (Auto) 6.0, Lymph # (Auto) 1.1, [place] # (Auto) 0.5, Eos # (Auto) 0.1, Baso # (Auto) 0.0, ESR 126 H, Sodium 135 L, Potassium 3.5, Chloride 98, Carbon Dioxide 35 H, Anion Gap 5.5, BUN 16, Creatinine 0.80, Estimated Creat Clear 151, Estimated GFR 101, Est GFR ( Amer) 122, Glucose 32 L*, Calcium 8.3 L, Total Bilirubin 0.7, AST 35, ALT 15, Alkaline Phosphatase 144 H, Troponin I 0.03, Total Protein 7.9, Albumin 3.6, Globulin 4.3 H, Albumin/Globulin Ratio 0.8 L, Plasma/Serum Alcohol < 10, HIV 1&2 Antibody Rapid Nonreactive 09/04/24 19:46: VBG pH 7.35, VBG pCO2 55.1 H, VBG pO2 48.7 H, VBG HCO3 29.5, VBG Total CO2 31.2 H, VBG O2 Saturation 81.5 H, VBG Base Excess 3.8 H, VBG Lactic Acid 1.7 09/04/24 20:40: Urine Color Yellow, Urine Appearance Clear, Urine pH 6.0, Ur Specific [place] 1.020, Urine Protein 3+ A, Urine Glucose (UA) Trace, Urine Ketones Negative, Urine Blood 1+ A, Urine Nitrate Negative, Urine Bilirubin Negative, Urine Urobilinogen 1.0, Ur Leukocyte Esterase Negative, Urine RBC 10-20, Urine WBC 3-5, Ur Squamous Epith Cells 5-10, Urine Bacteria 1+, Urine Opiates Screen Negative, Urine Methadone Screen Negative, Ur Barbituates Screen Negative, Ur Phencyclidine Scrn Negative, Ur Amphetamines Screen Negative, U Benzodiazepines Scrn Negative, Urine Cocaine Screen Negative, U Marijuana (THC) Screen Negative Orders (Tests/Meds): ED MEDICATIONS Generic Name Dose Route Start Last Admin Trade Name Freq PRN Reason Stop Dose Admin Acetaminophen 650 mg 09/04/24 22:31 Acetaminophen 325mg Tab PO 10/04/24 22:30 Q4HP PRN Fever or Mild Pain (1-3) Al Hydrox/Mg Hydrox/Simethicone 30 ml 09/04/24 22:31 Aluminum/Magnesium/Simethicone 30ml Udc PO 10/04/24 22:30 QIDP PRN Dyspepsia Albuterol/Ipratropium 3 ml 09/05/24 12:00 09/05/24 12:47 Ipratropium/Albuterol 3 Ml Neb IH 10/05/24 11:59 3 ml Q6RT ZAY Administration Atorvastatin Calcium 20 mg 09/05/24 21:00 Atorvastatin 20mg Tablet PO 10/05/24 20:59 HS ZAY Enoxaparin Sodium 40 mg 09/05/24 09:00 09/05/24 09:20 Enoxaparin 40mg/0.4ml Syringe SUBCUT 10/05/24 08:59 40 mg DAILY ZAY Administration Furosemide 40 mg 09/05/24 16:00 Furosemide 40mg/4ml Vial IV 10/05/24 15:59 BIDL ZAY Hydralazine HCl 10 mg 09/04/24 23:44 09/05/24 11:49 Hydralazine 20mg/Ml Vial IV 10/04/24 23:43 10 mg Q6HP PRN Administration SBP>160 Hydrochlorothiazide 25 mg 09/05/24 09:00 09/05/24 09:20 Hydrochlorothiazide 25mg Tablet PO 10/05/24 08:59 25 mg DAILY ZAY Administration Cefepime HCl 1 gm/ Sodium 50 mls @ 100 mls/hr 09/05/24 04:00 09/05/24 04:28 Chloride IV 09/12/24 03:59 100 mls/hr Q12H ZAY Administration Linezolid 600 mg in 300 mls @ 300 mls/hr 09/05/24 11:00 09/05/24 11:49 Zyvox 600mg/300ml Premix Bag IV 09/12/24 10:59 300 mls/hr Q12H ZAY Administration Doxycycline Hyclate 100 mg/ 250 mls @ 167 mls/hr 09/05/24 12:00 09/05/24 13:22 Sodium Chloride IV 09/15/24 11:59 167 mls/hr Q12H ZAY Administration Insulin Human Lispro 0 unit 09/05/24 06:00 09/05/24 11:49 Humalog 100 Units/Ml 10ml Vial (Ssi) SUBCUT 10/05/24 05:59 Not Given ACHS ZAY Protocol Labetalol HCl 10 mg 09/04/24 23:44 Labetalol 5mg/Ml 20ml Mdv IV 10/04/24 23:43 Q6HP PRN Hypertensive Emergency Levothyroxine Sodium 25 mcg 09/05/24 09:00 09/05/24 09:20 Levothyroxine 25mcg (0.025mg) Tab PO 10/05/24 08:59 25 mcg DAILYDM ZAY Administration Lisinopril 40 mg 09/05/24 09:00 09/05/24 09:20 Lisinopril 20mg Tablet PO 10/05/24 08:59 40 mg DAILY ZAY Administration Metoprolol Succinate 25 mg 09/05/24 09:00 09/05/24 09:20 Metoprolol Succinate Xl 25mg Tablet PO 10/05/24 08:59 25 mg DAILY ZAY Administration Morphine Sulfate 4 mg 09/04/24 22:36 Morphine 4mg/Ml Syringe IV 10/04/24 22:35 Q4HP PRN Severe Pain (7-10) Nicotine 21 mg 09/04/24 22:36 Nicotine 21mg/24hr Patch TD 10/04/24 22:35 DAILYP PRN Nicotine Cravings Ondansetron HCl 4 mg 09/04/24 22:31 Ondansetron 4mg/2ml Vial IV 10/04/24 22:30 Q8HP PRN Nausea Sodium Chloride 3 ml 09/04/24 22:20 Sodium Chloride 3% 15ml Neb IH 10/04/24 22:19 ONCE PRN INDUCE SPUTUM COLLECTION Sodium Chloride 10 ml 09/05/24 08:21 Sodium Chloride 0.9% 10ml Flush Syringe IV 10/05/24 08:20 NEEDED PRN Maintain IV Site Discontinued Medications Generic Name Dose Route Start Last Admin Trade Name Freq PRN Reason Stop Dose Admin Dextrose 50 ml 09/04/24 19:43 09/04/24 20:02 Dextrose 50% 50ml Syringe (Crash Cart) IVP 09/04/24 19:44 50 ml ONCE ONE Administration Dextrose 50 ml 09/04/24 19:30 09/04/24 19:30 Dextrose 50% 50ml Syringe (Crash Cart) IVP 09/04/24 19:31 50 ml ONCE ONE Administration Vancomycin HCl 1,000 mg/ 250 mls @ 125 mls/hr 09/04/24 21:15 09/04/24 22:57 Sodium Chloride IV 09/14/24 21:14 125 mls/hr Q24H ZAY Administration Piperacillin Sod/Tazobactam 50 mls @ 100 mls/hr 09/04/24 21:10 09/04/24 21:51 Sod 2.25 gm/ Sodium Chloride IV 09/04/24 21:39 100 mls/hr ONCE ONE Administration Dextrose/Sodium Chloride 1,000 mls @ 75 mls/hr 09/04/24 22:30 09/04/24 23:24 Dextrose 5%-0.9% Nacl Iv Soln IV 09/05/24 10:29 75 mls/hr .[id number] ZAY Administration Iopamidol 190 ml 09/04/24 21:26 09/04/24 21:27 Iopamidol-370 (76%);100ml Bottle IV 09/04/24 21:27 190 ml ONCE ONE Administration Miscellaneous 1 each 09/04/24 22:00 09/05/24 07:48 Vancomycin Consult Request NOTAPPLIC 10/04/24 21:59 Not Given CONSULT PHARMACY [facility] Potassium Chloride 40 meq 09/05/24 06:00 09/05/24 05:26 Potassium Chloride 20meq Tab PO 09/05/24 10:01 40 meq Q4HWA ZAY Administration Sodium Chloride 10 ml 09/04/24 21:26 09/04/24 21:27 Sodium Chloride 0.9% 10ml Syr (Rad Only) IV 09/04/24 21:27 10 ml ONCE ONE Administration Sodium Chloride 50 ml 09/04/24 21:26 09/04/24 21:27 0.9 % Sodium Chloride 50 Ml Vial IV 09/04/24 21:27 50 ml ONCE ONE Administration ORDERS Category Date Time Status CT Tib/Fib LT w con Stat Cat Scan 09/04/24 20:40 Completed CTA Chest [CT angio chest PE protocol] Stat Cat Scan 09/04/24 21:01 Completed POCUS Point of Care (ER Only) Stat Exams 09/04/24 21:02 Completed XR chest portable Stat Exams 09/04/24 19:47 Completed Blood alcohol [Ethyl Alcohol] Stat Lab 09/04/24 19:30 Completed Complete Blood Count Auto Diff Stat Lab 09/04/24 19:30 Completed Comprehensive Metabolic Panel Stat Lab 09/04/24 19:30 Completed Drug Screen,Urine Stat Lab 09/04/24 20:40 Completed HIV (1&2) Antibody Rapid Stat Lab 09/04/24 19:30 Completed Hep C Ab with Reflex to RNA Stat Lab 09/04/24 19:30 Received Troponin I Q3H Lab 09/04/24 22:40 Completed Troponin I Q3H Lab 09/05/24 01:50 Completed Troponin I Stat Lab 09/04/24 19:30 Completed Urinalysis and Microscopic Stat Lab 09/04/24 20:40 Completed Blood Culture Stat Micro 09/04/24 21:40 Received VBG [Venous Blood Gas] Stat RT 09/04/24 19:46 Completed Medical Decision Narrative: 54-year-old male presents emergency department with an hypoglycemic episode, differential diagnosis to include but not limited to Over use of antihyperglycemic's, EtOH, infection, malignancy, starvation, pneumonia, cardiac arrhythmia, electrolyte disturbance Discussed patient's case with attending physician Dr. Graves and examined the patient as well. Will obtain basic laboratory studies, chest x-ray, urinalysis, UDS, ethyl alcohol level, blood cultures, EKG, 1 amp of D50 was given on arrival to the ED, will give additional amp of D50. I along with the attending physician reviewed the patient's EKG, sinus rhythm with occasional PVCs, 69 bpm MS within normal limits, QT interval within normal limits there is no STEMI. CBC is notable for erythrocyte pi?a at 3.91 hemoglobin and hematocrit decreased to 10.7/33.2. CMP is notable for elevated CO2 at 35, glucose level on CMP was 32 this is prior to amp of D50 given. Troponin within normal limits. pH within normal limits, CO2 is minimally elevated at 55.1, bicarb within normal limits. VBG lactic acid is normal limits I reviewed the patient's chest x-ray along the corresponding radiologic report faint bibasilar airspace disease may represent pneumonia. Plasma serum alcohol level within normal limits. Repeat POC glucose at approximately 8:29 PM was 177 After examining the patient's left lower extremity diabetic foot wound/puncture wound, will obtain CT of the tib-fib on the left with contrast as well as CT foot on the left with contrast. Will also obtain POCUS ultrasound for further evaluation as characterization. Urine is notable for +3 proteinuria +1 hematuria, give nitrites negative leukocyte Estrace. Obtain CTA chest with and without contrast for further evaluation. Start the patient on vancomycin 1000 mg IV, will start Zosyn IV UDS negative. CTA and CT lower extremity of the left is pending. I discussed this patient's case with the hospitalist Dr. Garcia at approximately 9:30 PM he is in agreement with current admission plan/treatment plan for hypoglycemic episodes, in the setting of pneumonia/soft tissue plantar infection versus diabetic ulcer of the patient's left foot. Discussed need for admission with the patient family at the bedside patient and family agree with current treatment plan/admission plan. I was consulted by the ANOOP, and we discussed the complexity of the problems being addressed.I approved the treatment and management plan for this patient?s care in the Emergency Department, thus performing a substantive portion of the medical decision making.Signed, Alexey Graves MD Critical Care <MARTIN Meade - Last Filed: 09/04/24 21:39> Critical Care Time Critical Care Time: No
[2024-09-04 20:07] LABS: Troponin I 0.03 ng/ml (0.00-0.034)
[2024-09-04 20:37] LABS: Ethyl Alcohol < 10 mg/dl (0-10)
--- NOTE | 2024-09-04 20:40 | CT_ITS ---
PROCEDURE INFORMATION: Exam: CT Left Lower Extremity Exam date and time: 09/04/2024 9:21 PM Age: 54 years old Clinical indication: Other: Puncture wound/diabetic foot wound left foot/leg TECHNIQUE: Imaging protocol: CT of the left lower extremity with intravenous contrast was performed. Radiation optimization: All CT scans at this facility use at least one of these dose optimization techniques: automated exposure control; mA and/or kV adjustment per patient size (includes targeted exams where dose is matched to clinical indication); or iterative reconstruction. Contrast material: ISOVUE; Contrast volume: 120 ml; Contrast route: IV; COMPARISON: No relevant prior studies available. FINDINGS: Bones/joints: No acute fracture or dislocation. No CT evidence of osteomyelitis. Soft tissues: Diffuse soft tissue swelling seen throughout the included portion of the left lower leg. Irregular complex appearing fluid collection seen adjacent to the caudal aspect of the left calcaneus. A fluid tract extends from this collection to the medial skin surface. Air within the fluid tract. Maximum diameter of this fluid collection is 7 cm and has ill-defined enhancement at its borders. IMPRESSION: 1. Suspected abscess in the heel with tract extending to the medial skin surface. 2. Diffuse soft tissue swelling consistent with cellulitis.
[2024-09-04 20:43] LABS: Microscopic, Urine URINE MICROSCOPIC (MICROSCOPIC)
[2024-09-04 20:47] LABS: Appearance,Urine CLEAR (Clear); Bilirubin,Urine Negative (Negative); Blood, Urine 1+ (Negative); Color,Urine YELLOW (Yellow); Glucose,Urine (UA) TRACE (Negative); Ketones,Urine Negative (Negative); Leukocyte Esterase,Urine Negative (Negative); Nitrate,Urine Negative (Negative); Protein,Urine 3+ (Negative)
[2024-09-04 20:57] LABS: HIV (1&2) Antibody Rapid NONREACTIVE (NONREACTIVE)
--- NOTE | 2024-09-04 21:01 | CT_ITS ---
PROCEDURE INFORMATION: Exam: CTA Chest With Contrast Exam date and time: 09/04/2024 9:15 PM Age: 54 years old Clinical indication: Shortness of breath; Additional info: SOA TECHNIQUE: Imaging protocol: Computed tomographic angiography of the chest with contrast. Exam focused on the arteries. 3D rendering (Not supervised by radiologist): MIP and/or 3D reconstructed images were created by the technologist. Radiation optimization: All CT scans at this facility use at least one of these dose optimization techniques: automated exposure control; mA and/or kV adjustment per patient size (includes targeted exams where dose is matched to clinical indication); or iterative reconstruction. Contrast material: ISOVUE 370; Contrast volume: 70 ml; Contrast route: INTRAVENOUS (IV); COMPARISON: CR XR CHEST PORTABLE 09/04/2024 7:45 PM FINDINGS: Pulmonary arteries: Normal. No pulmonary emboli. Aorta: Unremarkable. No aortic aneurysm. No aortic dissection. Lungs: Mild bibasilar atelectasis. Septal line prominence noted bilaterally. Scattered airspace opacities are also seen bilaterally. No focal consolidation. Pleural spaces: Small bilateral pleural effusions, slightly larger on the right. Heart: Unremarkable. No cardiomegaly. No pericardial effusion. Coronary arteries: Moderate coronary artery calcification. Lymph nodes: Mildly enlarged lymph nodes in the mediastinum. Bones/joints: Unremarkable. No acute fracture. Soft tissues: Subcutaneous edematous changes. IMPRESSION: 1. Bilateral pleural effusions and bibasilar atelectasis. 2. Lung findings may indicate interstitial edema with superimposed infectious process. 3. Subcutaneous edematous changes. 4. Mildly enlarged mediastinal lymph nodes, possibly reactive in nature.
[2024-09-04 21:21] LABS: Bacteria,Urine 1+ /lpf
[2024-09-04] MEDS: IOPAMIDOL-370 (76%);100ML BOTTLE 190 ML IV (21:27)
[2024-09-04] MEDS: 0.9 % SODIUM CHLORIDE 50 ML VIAL IV (21:27)
[2024-09-04] MEDS: SODIUM CHLORIDE 0.9% 10ML SYR (RAD ONLY) 10 ML IV (21:27)
[2024-09-04 21:30] LABS: Benzodiazepines Screen,Urine Negative ng/ml (<200)
[2024-09-04 21:31] LABS: Amphetamine/Metha Screen,Urine Negative ng/ml (<1000); Barbiturates Screen,Urine Negative ng/ml (<200)
[2024-09-04 21:32] LABS: Cannabinoid Screen,Urine Negative ng/ml (<50)
[2024-09-04 21:33] LABS: Cocaine Screen,Urine Negative ng/ml (<300); Methadone Screen,Urine Negative ng/ml (<300)
[2024-09-04 21:34] LABS: Opiate Screen,Urine Negative ng/ml (<300)
[2024-09-04 21:35] LABS: Phencyclidine Screen,Urine Negative ng/ml (<25)
[2024-09-04] MEDS: PIPERACILLIN/TAZO 2.25 GM in 0.9 % SODIUM CHLORIDE 50 ML IV (21:51)
--- NOTE | 2024-09-04 22:03 | PC.NURSE ---
report called to BARB Coker
[2024-09-04 22:14] VITALS: BP 181/100; PULSE 90; RESP 21; TEMP 36.7; O2SAT 95
[2024-09-04 22:16] VITALS: BP 179/104; PULSE 90; RESP 20; TEMP 37; O2SAT 96; BMI 29.7
--- NOTE | 2024-09-04 22:24 | PC.NURSE ---
Patient arrived to floor via wheelchair from ED at 22:16.
--- NOTE | 2024-09-04 22:55 | EXP.HP ---
History of Present Illness *Admission Date: 09/04/24 *Reason for visit:: Lethargy, hand shaking, somnolence, low blood sugar *History of present illness: 54-year-old with past medical history of hyperlipidemia, CKD, NIDDM, hypertension. Patient presents with decreased p.o. intake, somnolence, hand twitching, lethargy and hypoglycemic episode noted at home by . Blood sugar 40s at home, status post 2 A D50 given by EMS. Admits to dry cough since Monday. Admits to hand jerking, diaphoresis, hot spells during hypoglycemic episode at home. Denies history of [place]/strokes. Denies chest pain, shortness of breath, abdominal pain, diarrhea, constipation, blurry vision. CT LLE shows potential abscess. CTA chest with bibasilar airspace disease/effusions without pulmonary embolus. WBC 7.8, serum glucose 32, lactic acid 1.7, UDS negative. Patient treated for left foot infection 07/30/2024 with 7 days Cipro by PCP. Has noted left foot drainage since Cipro administration. Per it looks better than it did before. Patient admits to coworkers with respiratory infection recently. present with patient in emergency room and collaborates his story. [facility] Disclaimer: The information contained in this section may have been updated after the patient was seen, as this information can be updated by other users. Medical History Diabetes Hyperlipidemia Hypertension Hypothyroidism Microalbuminuria Vitamin D deficiency Family History (Updated 09/04/24 @ 23:46 by Cherelle De La Vega RN) Other No significant family history Social History (Updated 09/04/24 @ 23:46 by Cherelle De La Vega RN) Smoking Status: Current every day smoker tobacco type: cigarettes packs per day: 1 alcohol intake: never substance use type: denies use current occupational status: employed Travel in the last 8 weeks: None Other Medical History Have you received the Flu Vaccine for this season: No Have you received the Pneumonia Vaccine: No Review of Systems Review of Systems Review of systems:: unable to obtain Constitutional Constitutional: Reports system reviewed and no additional complaints, except as documented Meds Home Medications and Allergies Home Medications ?Medication ?Instructions ?Recorded ?Confirmed ?Type alcohol swabs (Alcohol Pads) 1 pad topical TID #200 ea 04/03/23 06/07/23 Rx blood sugar diagnostic (Blood #50 04/03/23 04/03/23 Rx Glucose Test strips) lancets 33 gauge (BD Ultra Fine #100 04/03/23 04/03/23 Rx Lancets) miscellaneous medical supply #1 04/03/23 04/03/23 Rx (Blood Pressure Cuff) blood pressure monitor (Blood #1 06/07/23 06/07/23 Rx Pressure Kit) blood-glucose meter,continuous #1 06/07/23 06/07/23 Rx (Dexcom G7 [employer]) blood-glucose sensor (Dexcom G7 #1 06/07/23 06/07/23 Rx Sensor device) atorvastatin 10 mg tablet (Lipitor) 10 mg PO QHS #30 tabs 05/21/24 Rx lisinopril 20 mg tablet 20 mg PO DAILY #30 tabs 05/21/24 Rx glipizide 10 mg tablet, extended See Rx Instructions .Route 07/03/24 Rx release 24 hr .COMPLEX #30 tabs metformin 500 mg tablet See Rx Instructions .Route 07/03/24 Rx .COMPLEX #60 tabs metoprolol succinate 25 mg See Rx Instructions .Route 07/03/24 Rx tablet,extended release 24 hr .COMPLEX #30 tabs New Prescriptions to Start Prescriptions: Allergies Allergy/AdvReac Type Severity Reaction Status Date / Time vancomycin Allergy Mild Rash Verified 09/04/24 23:35 erythromycin base Allergy Unknown Unknown Verified 09/04/24 23:35 (ERYTHROMYCIN BASE) allergy reaction Penicillins (PENICILLINS) Allergy Unknown Unknown Verified 09/04/24 23:35 allergy reaction aspirin AdvReac Intermediate GI bleed Verified 06/07/23 13:30 Exam Data for Last 24 hours Vital signs and Labs for Last 24 Hours: Temp Pulse Resp BP Pulse Ox O2 Del Method O2 Flow Rate 98.6 F 90 20 179/104 H 96 Room Air 2 09/04/24 22:16 09/04/24 22:16 09/04/24 22:16 09/04/24 22:16 09/04/24 22:16 09/04/24 22:16 09/04/24 22:14 Laboratory Results - last 24 hr 09/04/24 19:30: WBC 7.8, RBC 3.91 L, Hgb 10.7 L, Hct 33.2 L, MCV 84.9, MCH 27.4, MCHC 32.3, RDW 15.9, Plt Count 306, MPV 7.4, Neut % (Auto) 76.5, Lymph % (Auto) 14.6, [place] % (Auto) 6.7, Eos % (Auto) 1.7, Baso % (Auto) 0.5, Neut # (Auto) 6.0, Lymph # (Auto) 1.1, [place] # (Auto) 0.5, Eos # (Auto) 0.1, Baso # (Auto) 0.0, Sodium 135 L, Potassium 3.5, Chloride 98, Carbon Dioxide 35 H, Anion Gap 5.5, BUN 16, Creatinine 0.80, Estimated Creat Clear 151, Estimated GFR 101, Est GFR ( Amer) 122, Glucose 32 L*, Calcium 8.3 L, Total Bilirubin 0.7, AST 35, ALT 15, Alkaline Phosphatase 144 H, Troponin I 0.03, Total Protein 7.9, Albumin 3.6, Globulin 4.3 H, Albumin/Globulin Ratio 0.8 L, Plasma/Serum Alcohol < 10, HIV 1&2 Antibody Rapid Nonreactive 09/04/24 19:46: VBG pH 7.35, VBG pCO2 55.1 H, VBG pO2 48.7 H, VBG HCO3 29.5, VBG Total CO2 31.2 H, VBG O2 Saturation 81.5 H, VBG Base Excess 3.8 H, VBG Lactic Acid 1.7 09/04/24 20:40: Urine Color Yellow, Urine Appearance Clear, Urine pH 6.0, Ur Specific Russell 1.020, Urine Protein 3+ A, Urine Glucose (UA) Trace, Urine Ketones Negative, Urine Blood 1+ A, Urine Nitrate Negative, Urine Bilirubin Negative, Urine Urobilinogen 1.0, Ur Leukocyte Esterase Negative, Urine RBC 10-20, Urine WBC 3-5, Ur Squamous Epith Cells 5-10, Urine Bacteria 1+, Urine Opiates Screen Negative, Urine Methadone Screen Negative, Ur Barbituates Screen Negative, Ur Phencyclidine Scrn Negative, Ur Amphetamines Screen Negative, U Benzodiazepines Scrn Negative, Urine Cocaine Screen Negative, U Marijuana (THC) Screen Negative I & O for Last 24 hours: Intake & Output 1209/02/24 09/03/24 09/04/24 23:59 23:59 23:59 23:59 Weight 99.836 kg Constitutional Constitutional: mild distress *Routine HEENT Exam Head: Present normocephalic Eye: Present EOMI ENT: Present mucous membranes dry *Routine Neck Exam Neck: Present supple and full ROM *Routine Respiratory Exam Respiratory: Present accessory muscle use and patient mechanically ventilated *Routine Cardiovascular Exam Cardiovascular: Present RRR, Normal S1 and Normal S2 *Routine Abdominal Exam Abdominal: Present soft and normoactive bowel sounds *Routine Rectal Exam Rectal:: deferred *Routine Genitalia Exam Genitalia:: deferred *Routine Skin Exam Skin: Present intact *Routine Neurological Exam Neurological: Present alert and oriented X3 Detailed Lower Extremity Exam Ankle: left: wound (4 cm longitudinal ankle wound with whitish/thick purulent drainage, questionable fluctuance) Assessment and Plan *Assessment and plan (1) Hypoglycemic episode in patient with diabetes mellitus: Status: Acute Category: Medical Code(s): E11.649 - Type 2 diabetes mellitus with hypoglycemia without coma (2) Infection of left foot: Status: Acute Category: Medical Code(s): L08.9 - Local infection of the skin and subcutaneous tissue, unspecified (3) Pneumonia: Status: Acute Category: Medical Code(s): J18.9 - Pneumonia, unspecified organism (4) Uncontrolled diabetes mellitus: Status: Chronic Qualifiers: Diabetes mellitus type: type 2 Glycemic state: with hyperglycemia Qualified Code(s): E11.65 - Type 2 diabetes mellitus with hyperglycemia Category: Medical (5) CKD (chronic kidney disease) stage 1, GFR 90 ml/min or greater: Status: Chronic Category: Medical Code(s): N18.1 - Chronic kidney disease, stage 1 Plan 54-year-old with past medical history of hyperlipidemia, CKD, NIDDM, hypertension. Patient presents with decreased p.o. intake, somnolence, hand twitching, lethargy and hypoglycemic episode noted at home by . Blood sugar 40s at home, status post 2 A D50 given by EMS. Admits to dry cough since Monday. CT LLE shows potential abscess. CTA chest with bibasilar airspace disease/effusions without pulmonary embolus. WBC 7.8, serum glucose 32, lactic acid 1.7, UDS negative. Problems as listed below: Hypoglycemia secondary to poor p.o. intake and infection: ?I reviewed patient's electrolytes at time of admission, WBC 7.8, Hg 10.7, platelets 306, NA 135, K3.5, chloride 98, serum, dioxide 25, BUN 16, CR 0.8. I will administer KCl 40 mEq p.o. every 4 x 2 doses. I will repeat BMP, CBC with differential, mag in AM. ? VBG pH 7.35, pCO2 55.1, lactic acid 1.7. UDS negative. UA +1 bacteria, negative leuk esterase, negative nitrates. ? Infection treatment as noted below in left lower extremity foot and pneumonia sections. D5 normal saline 75 cc/h x 12 hours. ?Hypoglycemic protocol. Diabetes: ? As above hypoglycemia. Hold all oral diabetic medications. Sign scale insulin, Accu-Cheks every 4 x 5 occasions then transition to ACHS Hypokalemia: Corrected as noted above and hypoglycemia section Left lower extremity diabetic foot infection: ? As below in pneumonia section plus IV vancomycin 1 g then pharmacy to dose, cefepime 1 g IV every 12, consult orthopedic surgery for possible debridement, order wound culture, MRI left lower extremity looking for signs of osteomyelitis. I ordered CRP, ESR. Also consult wound care. Pneumonia present on admission: ? As above in left lower extremity diabetic foot infection section plus respiratory panel, sputum culture/Gram stain, CTA chest done in emergency room shows no PE. I ordered procalcitonin, lactic acid 1.1 on VBG. I ordered serum lactic acid. ?Patient developed red man syndrome when starting vancomycin and night. Will therefore discontinue vancomycin, and start linezolid CKD: Cautious use of nephrotoxic drugs throughout hospitalization. Hypertension: IV hydralazine 10 mg every 6 as needed SBP over 160, labetalol 10 mg IV every 6 as needed SBP over 180 and/or DBP over 90. HLD: Atorvastatin 10 mg p.o. daily PPx Lovenox 40 mg subcu daily MDM Copa: High, patient's hypoglycemia poses threat to life and bodily function. Patient's left lower extremity diabetic foot infection also poses threat to life and bodily function. Data: High, see above. Patient's also acted as independent historian during my interview with patient today. I spoke with the emergency room doctor, and agree that patient requires admission for hypoglycemia and left lower extremity foot infection evaluation. Risk: High, see above. Prescription drug management as listed above. Patient will require frequent blood sugar monitoring during hospitalization given hypoglycemia blood sugar of 30 in emergency room. 35 minutes of total care time spent on patient by Dr. Garcia 09/04/2024
[2024-09-04 22:57] LABS: Lactic Acid 1.3 mmol/L (0.7-2.1)
[2024-09-04] MEDS: VANCOMYCIN HCL 1,000 MG in 0.9 % SODIUM CHLORIDE 250 ML 125 MG IV (22:57)
[2024-09-04] MEDS: Dextrose 5 % and 0.9 % NaCl 1,000 ML 75 ML IV (23:24)
[2024-09-04 23:32] LABS: Troponin I 0.02 ng/ml (0.00-0.034)
[2024-09-04 23:34] VITALS: O2SAT 96
[2024-09-04 23:38] LABS: Procalcitonin 0.032 ng/mL (0.0-2.0)
[2024-09-05] VITALS (9 sets, daily range): BP systolic 148–192; BP diastolic 79–99; PULSE 73–96; RESP 16–20; TEMP 36.4–36.9; O2SAT 91–97; BMI 29.7; BMI 31.1; BMI 31.0
[2024-09-05 00:10] LABS: C-Reactive Protein 11.4 mg/L (0-4)
[2024-09-05 00:31] LABS: Erythrocyte Sedimentation Rate 126 mm/hr (0-20)
[2024-09-05 01:06] LABS: POC Glucose,Bedside 82 (70-110)
--- NOTE | 2024-09-05 01:25 | PC.WOUNDNOTE ---
Left medial heel/foot
[2024-09-05 02:35] LABS: Troponin I 0.03 ng/ml (0.00-0.034)
[2024-09-05] MEDS: CEFEPIME HCL 1 GM in 0.9 % SODIUM CHLORIDE 50 ML IV ×2 (04:28→16:24)
[2024-09-05 04:43] LABS: Adenovirus,PCR Not Detected (NotDetected); Bordetella Pertussis Not Detected (NotDetected); Chlamydophila Pneumoniae, PCR Not Detected (NotDetected); Coronavirus 19, PCR Not Detected (NotDetected); Coronavirus 229E Not Detected (NotDetected); Coronavirus NL63 Not Detected (NotDetected); Coronavirus OC43 Not Detected (NotDetected); Coronovirus HKU1,PCR Not Detected (NotDetected); Human Metapneumovirus Not Detected (NotDetected); Influenza A, PCR Not Detected (NotDetected); Influenza AH1, 2009 Not Detected (NotDetected); Influenza AH1, PCR Not Detected (NotDetected); Influenza AH3,PCR Not Detected (NotDetected); Influenza B, PCR Not Detected (NotDetected); Mycoplasma Pneumoniae, PCR Not Detected (NotDetected); Parainfluenza 1, PCR Not Detected (NotDetected); Parainfluenza 2, PCR Not Detected (NotDetected); Parainfluenza 3, PCR Not Detected (NotDetected); Parainfluenza 4, PCR Not Detected (NotDetected); Respiratory Syncytial Virus Not Detected (NotDetected)
[2024-09-05 04:53] LABS: POC Glucose,Bedside 111 (70-110)
--- NOTE | 2024-09-05 05:16 | PC.NURSE ---
54 yo male pt admitted with hypoglycemia, wound infection and pneumonia. Pt is A/O X 4, at bedside. He is able to ambulate to BR with standby assist of spouse. He denies pain or discomfort of SOA. FSBS was 82 on arrival to the floor. Gave pt PB and crackers and began D5/NS IVF. Last check around 4 am, FSBS 111. Respiratory panel and cultures of wound obtained. Pt has been hypertensive with last BP at 176/82. Now with orders for prn meds for elevated BP, see NOV. Wound to left medial heel covered with coverderm dressing, foul odor noted.
[2024-09-05] MEDS: POTASSIUM CHLORIDE 20MEQ TAB 40 MEQ PO (05:26)
[2024-09-05 06:53] LABS: Chloride 102 mmol/L (98-107); Sodium 130 mmol/L (136-145)
[2024-09-05 06:54] LABS: Potassium 4.2 mmoL/L (3.5-5.1)
[2024-09-05 06:56] LABS: Anion Gap 2.2 mEq/L (5-15); Blood Urea Nitrogen 13 mg/dl (9-20); Carbon Dioxide 30 mmol/L (22.0-30.0); Creatinine Clearance Estimated 151 mL/min (50-200); Estimated Glomerular Filt Rate 101 ml/min (>60); GFR (African American) 122 ML/MIN (>60)
[2024-09-05 06:57] LABS: Calcium 7.8 mg/dl (8.4-10.2); Glucose 86 mg/dl (74-100); Magnesium 1.9 mg/dl (1.6-2.3)
--- NOTE | 2024-09-05 07:23 | HMH.PHAINT1 ---
Pharmacy Intervention Comments: home medications verified via outpatient pharmacy
[2024-09-05 07:27] LABS: Basophils % 0.3 % (0.1-2.0); Eosinophils # 0.1 K/mm3 (0.0-0.4); Eosinophils % 1.6 % (0.1-12.0); Hematocrit 27.7 % (42.0-52.0); Hemoglobin 9.8 g/dL (14.1-18.0); Lymphocytes % 14.2 % (10-50); Mean Corpuscular HGB Conc 35.3 g/dL (31.8-35.4); Mean Corpuscular Hemoglobin 30.1 pg (27.0-31.2); Mean Corpuscular Volume 85.3 fl (80-94); Mean Platelet Volume 7.2 fl (7.4-10.4); Monocytes # 0.4 K/mm3 (0.1-1.0); Monocytes % 6.1 % (1.7-9.3); Neutrophils # 5.5 K/mm3 (1.8-7.8); Neutrophils % 77.9 % (37.0-80.0); Platelet Count 258 K/mm3 (142-424); Red Blood Count 3.25 M/mm3 (4.60-6.20)
[2024-09-05] MEDS: hydroCHLOROthiazide 25MG TABLET 25 MG PO (09:20)
[2024-09-05] MEDS: LEVOTHYROXINE 25MCG (0.025MG) TAB 25 MCG PO (09:20)
[2024-09-05] MEDS: METOPROLOL SUCCINATE XL 25MG TABLET 25 MG PO (09:20)
[2024-09-05] MEDS: LISINOPRIL 20MG TABLET 40 MG PO (09:20)
[2024-09-05] MEDS: ENOXAPARIN 40MG/0.4ML SYRINGE 40 MG SUBCUT (09:20)
--- NOTE | 2024-09-05 09:20 | MR_ITS ---
FINAL REPORT CLINICAL HISTORY: LEFT FOOT INFECTION. ABCESS ON HEEL. FINDINGS: Multiplanar MR imaging of the left foot was performed without contrast. There is no fracture. The flexor and extensor tendons are intact. No ligamentous injury is identified. The musculature is intact. There is reactive bone marrow edema in the inferior calcaneus. There is diffuse soft tissue edema or cellulitis without well-defined fluid collection to suggest abscess. Soft tissue air is seen in the heel pad extending to the level of the posterior plantar aponeurosis where there is also a defect. There is abnormal T1 and T2 signal in a plantar calcaneal spur most consistent with osteomyelitis. IMPRESSION: Reactive bone marrow edema in the inferior calcaneus with diffuse soft tissue edema or cellulitis. No well-defined fluid collection to suggest abscess. Soft tissue air in the heel pad extending to the level of the posterior plantar aponeurosis with associated defect. Osteomyelitis of a plantar calcaneal spur. Reviewed, Interpreted and Dictated by Mauro Bentley III, MD Transcribed by Azalea Mallory Authenticated and [facility]
--- NOTE | 2024-09-05 09:20 | MR_ITS ---
FINAL REPORT CLINICAL HISTORY: LFET FOOT INFECTION. ABCESS ON HEEL. FINDINGS: Multiplanar MR imaging of the ankle was performed without contrast.Left there is reactive bone marrow edema in the inferior calcaneus without fracture. There is abnormal T1 and T2 signal in a plantar calcaneal spur most consistent with osteomyelitis. There is diffuse soft tissue edema or cellulitis without evidence of abscess. The ligaments are intact without evidence of injury. The flexor and extensor tendons are intact. The posterior plantar aponeurosis is intact. No significant joint effusion is seen. The musculature is intact. There is no evidence of soft tissue mass or cyst. IMPRESSION: Osteomyelitis of a plantar calcaneal spur and reactive marrow edema in the inferior calcaneus and associated soft tissue edema. No abscess. Reviewed, Interpreted and Dictated by Mauro Bentley III, MD Transcribed by Azalea Mallory Authenticated and [facility]
[2024-09-05 09:33] LABS: POC Glucose,Bedside 131 (70-110)
--- NOTE | 2024-09-05 10:45 | P.CONS_ITS ---
History of Present Illness *Admission Date: 09/04/24 *History of present illness: 54-year-old diabetic male who had been treated on an outpatient basis for laceration foot infection on the left side. He was admitted to the hospital with hypoglycemic episode orthopedics consulted regarding treatment options for left foot infection. He reports that he cut his foot in his garage and initially prior to p.o. antibiotic treatment with Cipro had severe swelling and infection in the foot. Patient reports that after given antibiotics his foot continued to improve. He reports that today compared to yesterday and the day before he still seen slight improvement in the foot. Has been no large amount of drainage. He reports that the redness and swelling is significantly better. He had a CT scan that showed possible abscess but soft tissue infection around the foot. [facility] Disclaimer: The information contained in this section may have been updated after the patient was seen, as this information can be updated by other users. Medical History Diabetes Hyperlipidemia Hypertension Hypothyroidism Microalbuminuria Vitamin D deficiency Family History (Updated 09/04/24 @ 23:46 by Cherelle De La Vega RN) Other No significant family history Social History (Updated 09/04/24 @ 23:46 by Cherelle De La Vega RN) Smoking Status: Current every day smoker tobacco type: cigarettes packs per day: 1 alcohol intake: never substance use type: denies use current occupational status: employed Travel in the last 8 weeks: None Meds Home Medications and Allergies Home Medications ?Medication ?Instructions ?Recorded ?Confirmed ?Type glimepiride 4 mg tablet 4 mg PO DAILY 09/04/24 09/05/24 History hydrochlorothiazide 25 mg tablet 25 mg PO DAILY 09/04/24 09/05/24 History levothyroxine 25 mcg tablet 25 mcg PO DAILY 09/04/24 09/05/24 History metformin 500 mg tablet 500 mg PO BID 09/04/24 09/05/24 History sitagliptin phosphate 100 mg 100 mg PO DAILY 09/04/24 09/05/24 History tablet (Januvia) atorvastatin 20 mg tablet 20 mg PO DAILY 09/05/24 09/05/24 History buspirone 5 mg tablet 5 mg PO BID 09/05/24 09/05/24 History ergocalciferol (vitamin D2) 1,250 1,250 mcg PO WEEKLY 09/05/24 09/05/24 History mcg (50,000 unit) capsule lisinopril 40 mg tablet 40 mg PO DAILY 09/05/24 09/05/24 History metoprolol succinate 25 mg 25 mg PO DAILY 09/05/24 09/05/24 History tablet,extended release 24 hr semaglutide 0.25 mg or 0.5 mg (2 0.25 mg SQ WEEKLY 09/05/24 09/05/24 History mg/3 mL) subcutaneous pen injector (Ozempic) New Prescriptions to Start Prescriptions: Allergies Allergy/AdvReac Type Severity Reaction Status Date / Time vancomycin Allergy Mild Rash Verified 09/04/24 23:35 erythromycin base Allergy Unknown Unknown Verified 09/04/24 23:35 (ERYTHROMYCIN BASE) allergy reaction Penicillins (PENICILLINS) Allergy Unknown Unknown Verified 09/04/24 23:35 allergy reaction aspirin AdvReac Intermediate GI bleed Verified 06/07/23 13:30 Ortho Exam (Inpt) Vital signs and Labs for Last 24 Hours: Temp Pulse Resp BP Pulse Ox O2 Del Method O2 Flow Rate 98.4 F 88 18 163/86 H 94 L Room Air 2 09/05/24 08:00 09/05/24 08:00 09/05/24 08:00 09/05/24 08:00 09/05/24 08:00 09/05/24 09:00 09/04/24 22:14 Laboratory Results - last 24 hr 09/04/24 19:30: WBC 7.8, RBC 3.91 L, Hgb 10.7 L, Hct 33.2 L, MCV 84.9, MCH 27.4, MCHC 32.3, RDW 15.9, Plt Count 306, MPV 7.4, Neut % (Auto) 76.5, Lymph % (Auto) 14.6, [place] % (Auto) 6.7, Eos % (Auto) 1.7, Baso % (Auto) 0.5, Neut # (Auto) 6.0, Lymph # (Auto) 1.1, [place] # (Auto) 0.5, Eos # (Auto) 0.1, Baso # (Auto) 0.0, ESR 126 H, Sodium 135 L, Potassium 3.5, Chloride 98, Carbon Dioxide 35 H, Anion Gap 5.5, BUN 16, Creatinine 0.80, Estimated Creat Clear 151, Estimated GFR 101, Est GFR ( Amer) 122, Glucose 32 L*, Calcium 8.3 L, Total Bilirubin 0.7, AST 35, ALT 15, Alkaline Phosphatase 144 H, Troponin I 0.03, Total Protein 7.9, Albumin 3.6, Globulin 4.3 H, Albumin/Globulin Ratio 0.8 L, Plasma/Serum Alcohol < 10, HIV 1&2 Antibody Rapid Nonreactive 09/04/24 19:46: VBG pH 7.35, VBG pCO2 55.1 H, VBG pO2 48.7 H, VBG HCO3 29.5, VBG Total CO2 31.2 H, VBG O2 Saturation 81.5 H, VBG Base Excess 3.8 H, VBG Lactic Acid 1.7 09/04/24 20:40: Urine Color Yellow, Urine Appearance Clear, Urine pH 6.0, Ur Specific [place] 1.020, Urine Protein 3+ A, Urine Glucose (UA) Trace, Urine Ketones Negative, Urine Blood 1+ A, Urine Nitrate Negative, Urine Bilirubin Negative, Urine Urobilinogen 1.0, Ur Leukocyte Esterase Negative, Urine RBC 10- 20, Urine WBC 3-5, Ur Squamous Epith Cells 5-10, Urine Bacteria 1+, Urine Opiates Screen Negative, Urine Methadone Screen Negative, Ur Barbituates Screen Negative, Ur Phencyclidine Scrn Negative, Ur Amphetamines Screen Negative, U Benzodiazepines Scrn Negative, Urine Cocaine Screen Negative, U Marijuana (THC) Screen Negative 09/04/24 22:40: Lactate 1.3, Troponin I 0.02, C-Reactive Protein 11.4 H, Procalcitonin 0.032 09/04/24 23:06: POC Glucose 82 09/05/24 01:50: Troponin I 0.03 09/05/24 04:18: POC Glucose 111 H 09/05/24 06:12: WBC 7.0, RBC 3.25 L, Hgb 9.8 L, Hct 27.7 L, MCV 85.3, MCH 30.1, MCHC 35.3, RDW 16.0, Plt Count 258, MPV 7.2 L, Neut % (Auto) 77.9, Lymph % (Auto) 14.2, [place] % (Auto) 6.1, Eos % (Auto) 1.6, Baso % (Auto) 0.3, Neut # (Auto) 5.5, Lymph # (Auto) 1.0, [place] # (Auto) 0.4, Eos # (Auto) 0.1, Baso # (Auto) 0.0, Sodium 130 L, Potassium 4.2, Chloride 102, Carbon Dioxide 30, Anion Gap 2.2 L, BUN 13, Creatinine 0.80, Estimated Creat Clear 151, Estimated GFR 101, Est GFR ( Amer) 122, Glucose 86 D, Calcium 7.8 L, Magnesium 1.9 09/05/24 09:26: POC Glucose 131 H I & O for Labs for Last 24 Hours: Intake & Output 09/02/24 09/03/24 09/04/24 09/05/24 23:59 23:59 23:59 23:59 Intake Total 756 / 756 Output Total 0 / 0 Balance 756 / 756 Weight 220 lb 1.6 oz 220 lb 1.611 oz Microbiology Reports for the Last 24 Hours: Microbiology 09/04/24 22:29 Sputum - Expectorated Sputum Gram Stain - Final 09/04/24 22:29 Sputum - Expectorated Sputum Sputum Culture - Preliminary 09/05/24 04:00 Ankle,Left Gram Stain - Final Comments:: Left foot: Mild swelling diffusely of the ankle and foot. There is a wound on the plantar aspect around the calcaneus. There is no active drainage or foul smell. Surrounding soft tissues with cellulitic changes Results Labs 09/05/24 06:12 09/05/24 06:12 Labs: Abnormal lab results 09/04/24 09/04/24 09/04/24 Range/Units 19:30 19:46 20:40 RBC 3.91 L (4.60-6.20) M/mm3 Hgb 10.7 L (14.1-18.0) g/dL Hct 33.2 L (42.0-52.0) % MPV (7.4-10.4) fl ESR 126 H (0-20) mm/hr VBG pCO2 55.1 H (35-51) mmol/L VBG pO2 48.7 H (28-40) mmol/L VBG Total CO2 31.2 H (23-27) mmol/L VBG O2 Saturation 81.5 H (50-70) % VBG Base Excess 3.8 H (-2.4-2.3) mmol/L Sodium 135 L (136-145) mmol/L Carbon Dioxide 35 H (22.0-30.0) mmol/L Anion Gap (5-15) mEq/L Glucose 32 L* (74-100) mg/dl POC Glucose (70-110) Calcium 8.3 L (8.4-10.2) mg/dl Alkaline Phosphatase 144 H (38-126) U/L C-Reactive Protein (0-4) mg/L Globulin 4.3 H (1.3-3.2) g/dL Albumin/Globulin Ratio 0.8 L (1.1-1.8) Urine Protein 3+ A (Negative) Urine Blood 1+ A (Negative) 09/04/24 09/05/24 09/05/24 Range/Units 22:40 04:18 06:12 RBC 3.25 L (4.60-6.20) M/mm3 Hgb 9.8 L (14.1-18.0) g/dL Hct 27.7 L (42.0-52.0) % MPV 7.2 L (7.4-10.4) fl ESR (0-20) mm/hr VBG pCO2 (35-51) mmol/L VBG pO2 (28-40) mmol/L VBG Total CO2 (23-27) mmol/L VBG O2 Saturation (50-70) % VBG Base Excess (-2.4-2.3) mmol/L Sodium 130 L (136-145) mmol/L Carbon Dioxide (22.0-30.0) mmol/L Anion Gap 2.2 L (5-15) mEq/L Glucose (74-100) mg/dl POC Glucose 111 H (70-110) Calcium 7.8 L (8.4-10.2) mg/dl Alkaline Phosphatase (38-126) U/L C-Reactive Protein 11.4 H (0-4) mg/L Globulin (1.3-3.2) g/dL Albumin/Globulin Ratio (1.1-1.8) Urine Protein (Negative) Urine Blood (Negative) 09/05/24 Range/Units 09:26 RBC (4.60-6.20) M/mm3 Hgb (14.1-18.0) g/dL Hct (42.0-52.0) % MPV (7.4-10.4) fl ESR (0-20) mm/hr VBG pCO2 (35-51) mmol/L VBG pO2 (28-40) mmol/L VBG Total CO2 (23-27) mmol/L VBG O2 Saturation (50-70) % VBG Base Excess (-2.4-2.3) mmol/L Sodium (136-145) mmol/L Carbon Dioxide (22.0-30.0) mmol/L Anion Gap (5-15) mEq/L Glucose (74-100) mg/dl POC Glucose 131 H (70-110) Calcium (8.4-10.2) mg/dl Alkaline Phosphatase (38-126) U/L C-Reactive Protein (0-4) mg/L Globulin (1.3-3.2) g/dL Albumin/Globulin Ratio (1.1-1.8) Urine Protein (Negative) Urine Blood (Negative) H & H 09/04/24 09/05/24 Range/Units 19:30 06:12 Hgb 10.7 L 9.8 L (14.1-18.0) g/dL Hct 33.2 L 27.7 L (42.0-52.0) % All other labs normal. Assessment and Plan *Assessment and plan (1) Infection of left foot: Status: Acute Category: Medical Code(s): L08.9 - Local infection of the skin and subcutaneous tissue, unspecified Plan Will order MRI scan of the foot to evaluate location and extent of possible abscess as well as rule out osteomyelitis calcaneus. Patient did have nail go through his house shoe resulting in the injury. Should be covered for Pseudomonas infection Will review MRI scan and make recommendations on surgical versus medical treatment of foot infection.
[2024-09-05 11:22] LABS: Rhinovirus/Enterovirus Detected (NotDetected)
--- NOTE | 2024-09-05 11:42 | HMH.PTWOUND ---
Rehab Inpt Wound Evaluation Rehab IP Wound Evaluation Start: 09/04/24 23:42 Freq: ONCE Status: Active Protocol: Document 09/05/24 11:19 BAKARI (Rec: 09/05/24 11:42 PHORAYDIN [id number]) Rehab PT Wound Assessment Subjective Subjective 54-year-old with past medical history of hyperlipidemia, CKD , NIDDM, hypertension. Patient presents with decreased p.o. intake, somnolence, hand twitching, lethargy and hypoglycemic episode noted at home by . Blood sugar 40s at home, status post 2 A D50 given by EMS. Admits to dry cough since Monday. Admits to hand jerking, diaphoresis, hot spells during hypoglycemic episode at home. Denies history of MA/strokes. Denies chest pain, shortness of breath, abdominal pain, diarrhea, constipation, blurry vision. CT LLE shows potential abscess. Wound Left Medial Heel Wound Type Diabetic Foot Ulcer Is This a Chronic Wound Yes Wound Length (cm) 2.0 Wound Width (cm) 4.5 Wound Depth (cm) 2.7 Wound Bed Appearance Yellow,[place],Slough Percentage of Slough (%) 100 Wound Margins Description Well Defined Wound Drainage Description Purulent Drainage Amount Moderate Drainage Odor Foul Odor Wound Topical Solution/Irrigant Saline Irrigant Primary Dressing Composite Comment betadine with bordered foam Wound Debridement Method Sharps,Forceps,Gauze Wound Debridement Amount of Tissue Moderate Removed Wound Debridement Result Necrotic Tissue Remains Dressing Change Patient Tolerance Tolerated Well Plan/Recommendation Comment Wound bed is fully necrotic at this time. Will await full results from MRI performed earlier today. Signs and symptoms are consistent with infected DFU which will likely require extensive surgical debridement. Eval Complexity Eval Charge Codes 61803 - High Complexity Harper-Diane Wound Assessment Tool Assessment Wound size 2=Length x Width 4--<16 sq cm Wound depth 5=Full thickness skin loss with extensive destruction, tissue necrosis Wound edges 4=Well-defined, not attached to base, rolled under, thickened Wound undermining 3=Undermining 2-4 cm involving <50% wound margins Necrotic tissue type 4=Adherent, soft, black eschar Necrotic tissue amount 5=75% to 100% of wound covered Exudate type 5=Purulent: thin or thick, opaque, donnelly/yellow, withour without odor Exudate amount 4=Moderate Skin color surrounding wound 1=[place] or normal for ethnic group Peripheral tissue edema 3=Non-pitting edema extends > or= to 4 cm around wound Peripheral tissue induration 3=Induration 2-4 cm extending < 50% around wound Granulation tissue 5=No granulation tissue present Epithelialization 5= < 25% wound covered Wound assessment total score 49 PHYSICIAN CERTIFICATION: I certify the specified therapy services for Erasto Brenner are required, authorized, and reviewed every 30 days.
[2024-09-05] MEDS: LINEZOLID 600 MG/300 ML IV.SOLN 300 MG IV ×2 (11:49→22:36)
[2024-09-05] MEDS: HYDRALAZINE 20MG/ML VIAL 10 MG IV (11:49)
[2024-09-05] MEDS: IPRATROPIUM/ALBUTEROL 3 ML NEB IH ×2 (12:47→18:41)
[2024-09-05] MEDS: [UNRECOGNIZED DRUG - OTHER] IV (13:22)
[2024-09-05] MEDS: SODIUM CHLORIDE 0.9% IV (13:22)
[2024-09-05 15:42] LABS: NT Pro Brain Natriuretic Pep. 2280 pg/mL (0-125)
[2024-09-05 15:49] LABS: Free T4 (Free Thyroxine) 1.39 ng/dl (0.78-2.19)
[2024-09-05 16:04] LABS: Thyroid Stimulating Hormone 4.18 uIU/mL (0.465-4.68)
--- NOTE | 2024-09-05 16:19 | CA_ITS ---
APPROVED REPORT EXAM: Comprehensive 2D, Doppler, and color-flow Echocardiogram [employer] Teacher: Regi Crane RVT Ht: 6 ft 0 in Wt: 229lbs BSA: 2.26 BP: 163/86 mmHg Indications: ELEVATED BNP,HTN,HLD,DM,SMOKER,PNEUMONIA, LT FOOT INFECTION 2D Dimensions LA Volume 78.00 mL LA Volume Index 34.51 mL/m2 (M/F) 16-34 M-Mode Dimensions RVDd 3.18 cm (0.9-2.6) LA Diam 3.96 cm (1.9-4.0) LVDd 4.75 cm (3.5-5.7) LVDs 3.50 cm (3.5-5.7) IVSd 1.01 cm (0.6-1.1) PWd 0.60 cm (0.6-1.1) EF (Teich) 51.50% FS 26.30% EDV (Teich) 104.90 mL ESV (Teich) 50.90 mL LV Diastology E Decel Time 150 (160-240 msec) E/A Ratio 2.0 Aortic Valve AO Peak GR. 2.80 mmHg Mitral Valve MV E Max Robbie. 118.0 (40-130 cm/s) MV A Velocity 58.0 (40-130 cm/s) E/A Ratio 2.03 MV PHT 44.0 ms Pulmonary Valve PV Peak Velocity 69.0 (50-150 cm/s) Tricuspid Valve TR P. Velocity 199.00 cm/s RAP Estimate 10.00 mmHg RVSP 25.90 mmHg Left Ventricle The left ventricle is normal size. The left ventricular systolic function is normal. The left ventricular ejection fraction is within the normal range. There is marked increase in LV wall thickness. IVSD is 1.4 cm. There is normal LV segmental wall motion. Grade 3 diastolic dysfunction is present. LVEF is 55%. Right Ventricle The right ventricle is normal size. The right ventricular systolic function is normal. Atria Left atrium is mildly dilated. Right atrium is mildly dilated. There is no Doppler evidence of interatrial shunt. Aortic Valve The aortic valve is mildly thickened. There is no aortic valvular stenosis. Mild aortic regurgitation. Mitral Valve The mitral valve is mildly thickened. No evidence of mitral valve stenosis. Mild to mild regurgitation. Tricuspid Valve Tricuspid valve is grossly normal in structure and function. Trace tricuspid regurgitation. There is insufficient TR jet to estimate RVSP. Pulmonic Valve The pulmonary valve is normal in structure. Mild pulmonic regurgitation. Great Vessels The aortic root is normal in size. The ascending aorta is not well-visualized. IVC is normal in size and collapses >50% with inspiration. Pericardium There is no pericardial effusion. Other Information Study Quality: Fair Conclusion Normal biventricular systolic function. Marked increase in LV wall thickness. IVSD is 1.4 cm. Grade 3 diastolic dysfunction. Biatrial dilation. Mild MR, mild AI, mild PI. In the setting of grade 3 diastolic dysfunction, biatrial dilation, and marked increase in LV wall thickness, further outpatient evaluation for infiltrative cardiomyopathy is suggested with cardiac MRI (amyloidosis protocol), PYP nuclear scan, and amyloidosis lab testing, if clinically feasible and indicated. Electronically signed by : Marcia Cotton MD 09/05/2024 23:40:30
[2024-09-05 16:20] LABS: Hemoglobin A1C 6.4 % (4.0-6.0)
[2024-09-05] MEDS: FUROSEMIDE 40MG/4ML VIAL 40 MG IV (16:24)
[2024-09-05 16:40] LABS: POC Glucose,Bedside 146 (70-110)
[2024-09-05] MEDS: ATORVASTATIN 20MG TABLET 20 MG PO (21:10)
[2024-09-05] MEDS: humaLOG 100 UNITS/ML 10ML VIAL (SSI) SUBCUT (21:10)
[2024-09-05 22:31] LABS: POC Glucose,Bedside 213 (70-110)
--- NOTE | 2024-09-05 22:57 | P.PN_ITS ---
Subjective *Date: 09/06/24 *Time: 00:32 Exam Data for Last 24 hours Vital signs and Labs for Last 24 Hours: Temp Pulse Resp BP Pulse Ox O2 Del Method O2 Flow Rate 97.9 F 90 16 164/79 H 91 L Room Air 2 09/05/24 20:00 09/05/24 20:00 09/05/24 20:00 09/05/24 20:00 09/05/24 20:00 09/05/24 20:00 09/04/24 22:14 Laboratory Results - last 24 hr 09/04/24 19:30: ESR 126 H 09/04/24 22:40: Lactate 1.3, Troponin I 0.02, C-Reactive Protein 11.4 H, Procalcitonin 0.032 09/04/24 23:06: POC Glucose 82 09/05/24 01:50: Troponin I 0.03 09/05/24 04:00: Chlamy pneumoniae PCR Not detected, Adenovirus (PCR) Not detected, B. pertussis DNA (PCR) Not detected, Coronavirus OC43 (PCR) Not detected, Coronavirus HKU1 (PCR) Not detected, Coronavirus 229E (PCR) Not detected, SARS-CoV-2 (PCR) Not detected, Coronavirus NL63 (PCR) Not detected, Hu man Metapneumovir PCR Not detected, Influenza A (H1) PCR Not detected, Influ A (H1N1/09) PCR Not detected, Influenza A (H3) PCR Not detected, Influenza Type A (PCR) Not detected, Influenza Type B (PCR) Not detected, M. pneumoniae (PCR) Not detected, Parainfluenza 1 (PCR) Not detected, Parainfluenza 2 (PCR) Not detected, Parainfluenza 3 (PCR) Not detected, Parainfluenza 4 (PCR) Not detected, RSV (PCR) Not detected, Entero/Rhino (PCR) Detected A 09/05/24 04:18: POC Glucose 111 H 09/05/24 06:12: WBC 7.0, RBC 3.25 L, Hgb 9.8 L, Hct 27.7 L, MCV 85.3, MCH 30.1, MCHC 35.3, RDW 16.0, Plt Count 258, MPV 7.2 L, Neut % (Auto) 77.9, Lymph % (Auto) 14.2, [place] % (Auto) 6.1, Eos % (Auto) 1.6, Baso % (Auto) 0.3, Neut # (Auto) 5.5, Lymph # (Auto) 1.0, [place] # (Auto) 0.4, Eos # (Auto) 0.1, Baso # (Auto) 0.0, Sodium 130 L, Potassium 4.2, Chloride 102, Carbon Dioxide 30, Anion Gap 2.2 L, BUN 13, Creatinine 0.80, Estimated Creat Clear 151, Estimated GFR 101, Est GFR ( Amer) 122, Glucose 86 D, Hemoglobin A1c 6.4 H, Calcium 7.8 L, Magnesium 1.9, NT-Pro-B Natriuret Pep 2280 H, TSH 4.18, Free T4 1.39 09/05/24 09:26: POC Glucose 131 H 09/05/24 16:32: POC Glucose 146 H 09/05/24 21:01: POC Glucose 213 H I & O for Last 24 hours: Intake & Output 09/02/24 09/03/24 09/04/24 09/05/24 23:59 23:59 23:59 23:59 Intake Total 2205 / 220 Output Total 0 / 0 Balance 2205 / 2205 Weight 99.836 kg 104 kg Microbiology Reports for the Last 24 Hours: Microbiology 09/04/24 21:40 Blood Blood Culture - Preliminary NO GROWTH AFTER 24 HOURS 09/04/24 21:40 Blood Blood Culture - Preliminary NO GROWTH AFTER 24 HOURS 09/04/24 22:29 Sputum - Expectorated Sputum Gram Stain - Final 09/04/24 22:29 Sputum - Expectorated Sputum Sputum Culture - Preliminary 09/05/24 04:00 Ankle,Left Gram Stain - Final Assessment and Plan *Assessment and plan (1) Hypoglycemic episode in patient with diabetes mellitus: Status: Acute Category: Medical Code(s): E11.649 - Type 2 diabetes mellitus with hypoglycemia without coma (2) Infection of left foot: Status: Acute Category: Medical Code(s): L08.9 - Local infection of the skin and subcutaneous tissue, unspecified (3) Pneumonia: Status: Acute Category: Medical Code(s): J18.9 - Pneumonia, unspecified organism (4) Uncontrolled diabetes mellitus: Status: Chronic Qualifiers: Diabetes mellitus type: type 2 Glycemic state: with hyperglycemia Qualified Code(s): E11.65 - Type 2 diabetes mellitus with hyperglycemia Category: Medical (5) CKD (chronic kidney disease) stage 1, GFR 90 ml/min or greater: Status: Chronic Category: Medical Code(s): N18.1 - Chronic kidney disease, stage 1 Plan 54-year-old with past medical history of hyperlipidemia, CKD, NIDDM, hypertension. Admitted for hypoglycemic episodes, found to have possible osteomyelitis. #Osteomyelitis - Stepped on metal nail in left heel early July. Had been on 7 days of Cipro around then by PCP. Had tetanus shot about 1 year ago. - MRI suggestive of osteo of left calcaneal spur, with bone marrow edema and overlying soft tissue edema. - Ortho was consulted on admission, plan for debridement tomorrow. However, ECHO report in late evening showed G3DD so will need cardiac pre-op risk assessemnt. Dr. Scott will need to be updated in the morning. Dr. Garcia on maintenance supervisor 2nd shift has been notified. - Continue Zyvox (allergic to vanc), cefepime. #HFpEF exacerbation - Pulmonary edema, BNP 2280. - Started IV Lasix 40mg BID after BNP resulted. Making good urine. - ECHO shows G3DD with LVEF 55%. - Cardiology consulted for pre-op risk assessment as for above. #Suspected CAP - CTA shows interstitial changes. - Started doxycycline, continue vanc and cefepime as above. #Hypertension - Continue lisinopril. Disntoninued HCTZ after Lasix started above. #hypothyrodism - Resume home levothyroxine. TFTs on admission stable. FULL CODE Lovenox 40
[2024-09-05] MEDS: SODIUM CHLORIDE 0.9% 10ML FLUSH SYRINGE 10 ML IV (23:41)
[2024-09-05] MEDS: CEFEPIME HCL 2 GM in 0.9 % SODIUM CHLORIDE 50 ML IV (23:45)
[2024-09-06] VITALS (23 sets, daily range): BP systolic 120–179; BP diastolic 68–97; PULSE 77–101; RESP 12–18; TEMP 36.6–37.1; O2SAT 92–96; BMI 31.0
[2024-09-06] MEDS: [UNRECOGNIZED DRUG - OTHER] IV (00:30)
[2024-09-06] MEDS: SODIUM CHLORIDE 0.9% IV (00:30)
--- NOTE | 2024-09-06 05:38 | PC.NURSE ---
09/06/24 0530: Pt. had a good night. Pt. did sleep some of the shift. Antibiotics given overnight as ordered. Pt. up to bathroom and ambulates with a steady gait. at bedside. Pt. was NPO after midnight for OR today. left foot bone spur removal and wash out of left foot infection. VSS ,Personal items and call flores in reach.
[2024-09-06 06:11] LABS: HCV Ab Non Reactive (Non Reactive)
[2024-09-06 06:39] LABS: POC Glucose,Bedside 114 (70-110)
[2024-09-06] MEDS: LEVOTHYROXINE 25MCG (0.025MG) TAB 25 MCG PO (06:48)
[2024-09-06 07:18] LABS: Basophils % 0.4 % (0.1-2.0); Eosinophils # 0.2 K/mm3 (0.0-0.4); Eosinophils % 1.9 % (0.1-12.0); Hematocrit 28.6 % (42.0-52.0); Hemoglobin 9.7 g/dL (14.1-18.0); Lymphocytes # 1.2 K/mm3 (0.7-4.5); Lymphocytes % 15.8 % (10-50); Mean Corpuscular HGB Conc 34.1 g/dL (31.8-35.4); Mean Corpuscular Hemoglobin 28.1 pg (27.0-31.2); Mean Corpuscular Volume 82.6 fl (80-94); Mean Platelet Volume 7.3 fl (7.4-10.4); Monocytes # 0.4 K/mm3 (0.1-1.0); Monocytes % 4.6 % (1.7-9.3); Neutrophils # 5.9 K/mm3 (1.8-7.8); Neutrophils % 77.2 % (37.0-80.0); Platelet Count 266 K/mm3 (142-424); Red Blood Count 3.46 M/mm3 (4.60-6.20); Red Cell Distribution Width 15.8 % (11.5-17.5); White Blood Count 7.6 K/mm3 (4.8-10.8)
[2024-09-06 07:33] LABS: Chloride 103 mmol/L (98-107); Potassium 4.2 mmoL/L (3.5-5.1); Sodium 136 mmol/L (136-145)
[2024-09-06 07:36] LABS: Anion Gap 5.2 mEq/L (5-15); Blood Urea Nitrogen 15 mg/dl (9-20); Calcium 7.9 mg/dl (8.4-10.2); Carbon Dioxide 32 mmol/L (22.0-30.0); Creatinine Clearance Estimated 140 mL/min (50-200); Estimated Glomerular Filt Rate 88 ml/min (>60); GFR (African American) 107 ML/MIN (>60); Glucose 106 mg/dl (74-100)
[2024-09-06 07:37] LABS: Magnesium 1.9 mg/dl (1.6-2.3)
[2024-09-06] MEDS: METOPROLOL SUCCINATE XL 25MG TABLET 25 MG PO (08:25)
[2024-09-06] MEDS: LISINOPRIL 20MG TABLET 40 MG PO (08:25)
[2024-09-06] MEDS: ENOXAPARIN 40MG/0.4ML SYRINGE 40 MG SUBCUT (08:26)
[2024-09-06] MEDS: FUROSEMIDE 40MG/4ML VIAL 40 MG IV (08:26)
[2024-09-06] MEDS: CEFEPIME HCL 2 GM in 0.9 % SODIUM CHLORIDE 100 ML IV ×2 (08:39→10:13)
--- NOTE | 2024-09-06 09:43 | EXP.ANES.CKL ---
[facility] Disclaimer: The information contained in this section may have been updated after the patient was seen, as this information can be updated by other users. Medical History Diabetes Hyperlipidemia Hypertension Hypothyroidism Microalbuminuria Vitamin D deficiency Family History (Updated 09/04/24 @ 23:46 by Cherelle De La Vega RN) Other No significant family history Social History (Updated 09/04/24 @ 23:46 by Cherelle De La Vega RN) Smoking Status: Current every day smoker tobacco type: cigarettes packs per day: 1 alcohol intake: never substance use type: denies use current occupational status: employed Travel in the last 8 weeks: None Have you lived/traveled outside [place] in past 30 days?: No Contact w/someone who lives/traveled outside US past 30 days?: No Exposure to someone with infectious disease in past 14 days?: No Do you have a fever (greater than 100.4 F or 38 C)?: No Have you tested positive for COVID-19: No Exposed to someone with COVID-19 in past 14 days?: No Do you have a sore throat?: No Do you have a cough?: No Do you have any weakness?: No Are you experiencing any nausea/vomitting?: No Do you have any diarrhea?: No Are you experiencing any unusual bleeding?: No Do you have any muscle aches/pain?: No Do you have any abdominal pain?: No Are you experiencing loss of taste or smell?: No [facility] Anesthesia Checklist Patient Identification Patient Identification: Arm Band, Family and Verbal (Name & ) Structural Data Admitted From: Home Planned Operative Procedure/s: I& D Lt. foot wound Consent for Planned Operative Procedure(s) Verified: Yes Verified Documents: Surgical Consent and History and Physical NPO Status Verified Time NPO: 17:00 Chart Verification Results Verified: CBC, BMP and ECG Additional verifications Fingerstick Blood Glucose: 113 Patient : No Anesthesia Reactions: No Cardiovascular Assessment Heart Sounds: S1 & S2 Pulse Rhythm: Irregular Peripheral Edema: Yes Airway Assessment Mallampati Score:: Class II C-Spine Mobility Assessed: Yes TMJ Mobility Assessed: Yes Dentition: Poor Dentition (Nothing loose per pt.) Neurological Assessment Level of Consciousness: Awake, Alert, Appropriate and Follows Commands Hx Seizures: No Numbness or tingling in extremities: Yes (LT. foot) Anesthesia Plan Anesthesia Risk discussed: Yes Anesthesia Plan: Verified ASA Class: III Anesthesia Type: General
[2024-09-06 10:06] LABS: POC Glucose,Bedside 113 (70-110)
--- NOTE | 2024-09-06 11:01 | P.CONCA_ITS ---
History of Present Illness History of Present Illness Consult date: 09/06/24 Requesting physician: Sarkis Johnson Consult reason: congestive heart failure Chief complaint: Lethargy, low blood sugar History of present illness: This is a 54-year-old gentleman who presented to the emergency department with complaints of shaking hands, lethargy, low blood sugar and somnolence. He has a past medical history of hypertension, hyperlipidemia, diabetes and chronic kidney disease. The patient states that he was at home when his blood sugar dropped down to 41. The patient states that he became very shaky and lethargic. He did not feel well and his hand started shaking. He called EMS and he was given D50. The patient does report having a dry cough since Monday. He Milad was diaphoretic when his blood sugar dropped into the 40s. He denies any chest pain or pressure. He denies any shortness of breath. He has chronic bilateral lower extremity edema. He states that his lower extremities have been edematous for several years. He denies any fever, chills, nausea, vomiting, diarrhea, PND or orthopnea. Cardiology was consulted because imaging showed bilateral pleural effusions. The patient is found to have an infected left foot requiring debridement. [facility] Disclaimer: The information contained in this section may have been updated after the patient was seen, as this information can be updated by other users. Medical History (Updated 09/06/24 @ 11:06 by Molly Ramos APRN) Pre-operative cardiovascular examination Diastolic dysfunction Acute heart failure with preserved ejection fraction (HFpEF) Microalbuminuria Vitamin D deficiency Hyperlipidemia Hypothyroidism Diabetes Hypertension Family History (Updated 09/04/24 @ 23:46 by Cherelle De La Vega RN) Other No significant family history Social History (Updated 09/04/24 @ 23:46 by Cherelle De La Vega RN) Smoking Status: Current every day smoker tobacco type: cigarettes packs per day: 1 alcohol intake: never substance use type: denies use current occupational status: employed Travel in the last 8 weeks: None Have you lived/traveled outside [place] in past 30 days?: No Contact w/someone who lives/traveled outside [place] past 30 days?: No Exposure to someone with infectious disease in past 14 days?: No Do you have a fever (greater than 100.4 F or 38 C)?: No Have you tested positive for COVID-19: No Exposed to someone with COVID-19 in past 14 days?: No Do you have a sore throat?: No Do you have a cough?: No Do you have any weakness?: No Are you experiencing any nausea/vomitting?: No Do you have any diarrhea?: No Are you experiencing any unusual bleeding?: No Do you have any muscle aches/pain?: No Do you have any abdominal pain?: No Are you experiencing loss of taste or smell?: No Review of Systems Review of Systems Review of systems:: pertinent systems reviewed and negative unless documented below Constitutional Constitutional: Reports system reviewed and no additional complaints, except as documented, Denies chills, Reports fatigue, Reports lethargy and Reports malaise Eyes Eyes: Reports system reviewed and no additional complaints, except as documented ENT Ears, Nose, Mouth, and Throat: Reports system reviewed and no additional complaints, except as documented *Cardiovascular Cardiovascular: Reports system reviewed and no additional complaints, except as documented, Denies chest pain, Denies dyspnea, Reports leg edema and Reports pedal edema *Respiratory Respiratory: Reports system reviewed and no additional complaints, except as do cumented and Denies dyspnea *Gastrointestinal Gastrointestinal: Reports system reviewed and no additional complaints, except as documented *Genitourinary Genitourinary: Reports system reviewed and no additional complaints, except as documented *Musculoskeletal Musculoskeletal: Reports system reviewed and no additional complaints, except as documented and Reports other (Shaking hands) Integumentary/Breasts Skin/Breast: Reports system reviewed and no additional complaints, except as documented *Neurologic Neurologic: Reports system reviewed and no additional complaints, except as documented Psychiatric Psychiatric: Reports system reviewed and no additional complaints, except as documented Endocrine Endocrine: Reports system reviewed and no additional complaints, except as documented and Reports fatigue Hematologic/Lymphatic Hematologic/Lymphatic: Reports system reviewed and no additional complaints, except as documented Allergic/Immunologic Allergic/Immunologic: Reports system reviewed and no additional complaints, except as documented Exam Data for Last 24 hours Vital signs and Labs for Last 24 Hours: Temp Pulse Resp BP Pulse Ox O2 Del Method O2 Flow Rate 98.0 F 89 18 170/97 H 93 L Room Air 2 09/06/24 08:00 09/06/24 08:00 09/06/24 08:00 09/06/24 08:00 09/06/24 08:00 09/06/24 08:00 09/04/24 22:14 Laboratory Results - last 24 hr 09/04/24 19:30: Hepatitis C Antibody Non reactive 09/05/24 04:00: Chlamy pneumoniae PCR Not detected, Adenovirus (PCR) Not detected, B. pertussis DNA (PCR) Not detected, Coronavirus OC43 (PCR) Not detected, Coronavirus HKU1 (PCR) Not detected, Coronavirus 229E (PCR) Not detected, SARS-CoV-2 (PCR) Not detected, Coronavirus NL63 (PCR) Not detected, Human Metapneumovir PCR Not detected, Influenza A (H1) PCR Not detected, Influ A (H1N1/09) PCR Not detected, Influenza A (H3) PCR Not detected, Influenza Type A (PCR) Not detected, Influenza Type B (PCR) Not detected, M. pneumoniae (PCR) Not detected, Parainfluenza 1 (PCR) Not detected, Parainfluenza 2 (PCR) Not detected, Parainfluenza 3 (PCR) Not detected, Parainfluenza 4 (PCR) Not detected, RSV (PCR) Not detected, Entero/Rhino (PCR) Detected A 09/05/24 06:12: Hemoglobin A1c 6.4 H, NT-Pro-B Natriuret Pep 2280 H, TSH 4.18, Free T4 1.39 09/05/24 16:32: POC Glucose 146 H 09/05/24 21:01: POC Glucose 213 H 09/06/24 06:29: POC Glucose 114 H 09/06/24 06:35: WBC 7.6, RBC 3.46 L, Hgb 9.7 L, Hct 28.6 L, MCV 82.6, MCH 28.1, MCHC 34.1, RDW 15.8, Plt Count 266, MPV 7.3 L, Neut % (Auto) 77.2, Lymph % (Auto) 15.8, [place] % (Auto) 4.6, Eos % (Auto) 1.9, Baso % (Auto) 0.4, Neut # (Auto) 5.9, Lymph # (Auto) 1.2, [place] # (Auto) 0.4, Eos # (Auto) 0.2, Baso # (Auto) 0.0, Sodium 136, Potassium 4.2, Chloride 103, Carbon Dioxide 32 H, Anion Gap 5.2, BUN 15, Creatinine 0.90, Estimated Creat Clear 140, Estimated GFR 88, Est GFR ( Amer) 107, Glucose 106 H, Calcium 7.9 L, Magnesium 1.9 09/06/24 09:59: POC Glucose 113 H I & O for Last 24 hours: Intake & Output 09/03/24 09/04/24 09/05/24 09/06/24 23:59 23:59 23:59 23:59 Intake Total 2206 / 2746 540 / 540 Output Total 0 / 0 0 / 0 Balance 2206 / 2746 540 / 540 Weight 220 lb 1.6 oz 229 lb 4.492 oz 229 lb 4.492 oz Microbiology Reports for the Last 24 Hours: Microbiology 09/05/24 04:00 Ankle,Left Gram Stain - Final 09/05/24 04:00 Ankle,Left Wound Culture - Preliminary 09/04/24 22:29 Sputum - Expectorated Sputum Gram Stain - Final 09/04/24 22:29 Sputum - Expectorated Sputum Sputum Culture - Final 09/04/24 21:40 Blood Blood Culture - Preliminary NO GROWTH AFTER 24 HOURS 09/04/24 21:40 Blood Blood Culture - Preliminary NO GROWTH AFTER 24 HOURS Narrative: Echocardiogram shows: Normal biventricular systolic function. Marked increase in LV wall thickness. IVSD is 1.4 cm. Grade 3 diastolic dysfunction. Biatrial dilation. Mild MR, mild AI, mild PI. In the setting of grade 3 diastolic dysfunction, biatrial dilation, and marked increase in LV wall thickness, further outpatient evaluation for infiltrative cardiomyopathy is suggested with cardiac MRI (amyloidosis protocol), PYP nuclear scan, and amyloidosis lab testing, if clinically feasible and indicated. Constitutional Constitutional: no acute distress and average body habitus *Routine HEENT Exam Head: Present normocephalic and atraumatic ENT: Present mucous membranes moist *Routine Neck Exam Neck: Present supple, full ROM and normal carotid upstroke; Absent JVD, carotid bruit or lymphadenopathy *Routine Respiratory Exam Respiratory: Present CTA bilaterally, normal respiratory effort, able to speak in complete sentences and symmetric chest movement *Routine Cardiovascular Exam Cardiovascular: Present RRR, Normal S1 and Normal S2; Absent murmur or gallop *Routine Abdominal Exam Abdominal: Present soft and normoactive bowel sounds; Absent tenderness, distended or organomegaly *Routine Extremities Exam Extremities: Present edema (Gross 3-4+ bilateral lower extremity edema), full ROM, pulses intact and normal capillary refill; Absent cyanosis or clubbing *Routine Skin Exam Skin: Present intact and warm; Absent erythema *Routine Neurological Exam Neurological: Present alert, oriented X3 and CN II-XII intact; Absent sensory deficit or motor deficit Routine Psychiatric Exam Psychiatric: Present normal affect Meds Home Medications and Allergies Home Medications ?Medication ?Instructions ?Recorded ?Confirmed ?Type glimepiride 4 mg tablet 4 mg PO DAILY 09/04/24 09/05/24 History hydrochlorothiazide 25 mg tablet 25 mg PO DAILY 09/04/24 09/05/24 History levothyroxine 25 mcg tablet 25 mcg PO DAILY 09/04/24 09/05/24 History metformin 500 mg tablet 500 mg PO BID 09/04/24 09/05/24 History sitagliptin phosphate 100 mg 100 mg PO DAILY 09/04/24 09/05/24 History tablet (Januvia) atorvastatin 20 mg tablet 20 mg PO DAILY 09/05/24 09/05/24 History buspirone 5 mg tablet 5 mg PO BID 09/05/24 09/05/24 History ergocalciferol (vitamin D2) 1,250 1,250 mcg PO WEEKLY 09/05/24 09/05/24 History mcg (50,000 unit) capsule lisinopril 40 mg tablet 40 mg PO DAILY 09/05/24 09/05/24 History metoprolol succinate 25 mg 25 mg PO DAILY 09/05/24 09/05/24 History tablet,extended release 24 hr semaglutide 0.25 mg or 0.5 mg (2 0.25 mg SQ WEEKLY 09/05/24 09/05/24 History mg/3 mL) subcutaneous pen injector (Ozempic) New Prescriptions to Start Prescriptions: Allergies Allergy/AdvReac Type Severity Reaction Status Date / Time vancomycin Allergy Mild Rash Verified 09/04/24 23:35 erythromycin base Allergy Unknown Unknown Verified 09/04/24 23:35 (ERYTHROMYCIN BASE) allergy reaction Penicillins (PENICILLINS) Allergy Unknown Unknown Verified 09/04/24 23:35 allergy reaction aspirin AdvReac Intermediate GI bleed Verified 06/07/23 13:30 Assessment and Plan *Assessment and plan (1) Acute heart failure with preserved ejection fraction (HFpEF): Status: Acute Category: Medical Code(s): I50.31 - Acute diastolic (congestive) heart failure (2) Diastolic dysfunction: Status: Acute Category: Medical Code(s): I51.89 - Other ill-defined heart diseases (3) Hypertension: Status: Chronic Qualifiers: Hypertension type: essential hypertension Qualified Code(s): I10 - Essential (primary) hypertension Category: Medical Code(s): I10 - Essential (primary) hypertension (4) Diabetes: Status: Chronic Qualifiers: Diabetes mellitus type: type 2 Diabetes mellitus long-term insulin use: without deep tissue massage therapist use Diabetes mellitus complication status: without complication Qualified Code(s): E11.9 - Type 2 diabetes mellitus without complications Category: Medical Code(s): E11.9 - Type 2 diabetes mellitus without complications (5) Hyperlipidemia: Status: Chronic Qualifiers: Hyperlipidemia type: unspecified Qualified Code(s): E78.5 - Hyperlipidemia, unspecified Category: Medical Code(s): E78.5 - Hyperlipidemia, unspecified (6) CKD (chronic kidney disease) stage 1, GFR 90 ml/min or greater: Status: Chronic Category: Medical Code(s): N18.1 - Chronic kidney disease, stage 1 (7) Infection of left foot: Status: Acute Category: Medical Code(s): L08.9 - Local infection of the skin and subcutaneous tissue, unspecified (8) Pre-operative cardiovascular examination: Status: Acute Category: Medical Code(s): Z01.810 - Encounter for preprocedural cardiovascular examination Plan Plan: 1. The patient was admitted to the hospital and found to have acute HFpEF. The patient has grade 3 diastolic dysfunction on echocardiogram. His BNP is over 2000. This diastolic dysfunction is likely the cause of his pleural effusions. The patient is being diuresed with Lasix 80 mg IV twice daily. Will continue with diuresis at this time. 2. The patient ruled out for an DE. He denies any chest pain or pressure. His echocardiogram shows no wall motion abnormalities. No plans for invasive left cardiac catheterization at this time. He is average risk from a cardiac standpoint to proceed with debridement of his left foot today. 3. The patient would benefit from further cardiac evaluation for ischemia on an outpatient basis once he is discharged from the hospital. 4. As mentioned above the patient does have a left foot infection. MRI shows that he does have osteomyelitis. He is scheduled to undergo debridement this morning. Will defer this to orthopedics and the hospitalist. 5. His blood pressure is elevated. We do anticipate that his blood pressure will improve with diuresis. 6. His LDL goal is less than 100. Will get a lipid panel in the morning. 7. The patient also is being treated for an underlying pneumonia. Will defer management of this to the hospitalist. 8. Echocardiogram does show the grade 3 diastolic dysfunction and LV wall thickness. Recommend a cardiac MRI on an outpatient basis. 9. Further recommendations will be made pending the patient's response to treatment. If the patient is still hospitalized on Monday then cardiology will resume following the patient at that time. Thank you for the opportunity to help dissipate in the care of this patient. All recommendations and orders are per Dr. Cotton.
--- NOTE | 2024-09-06 11:05 | XR_ITS ---
FINAL REPORT CLINICAL HISTORY: L FOOT IND FINDINGS: FLUOROSCOPY LESS THAN 1 HOUR HISTORY: FINDINGS: Fluoroscopic guidance was provided for intraoperative evaluation of the left hindfoot. 2 spot films were obtained. 0.3 minutes of fluoroscopy time were used, with a dosage of 0.85 mGy. IMPRESSION: As above. Reviewed, Interpreted and Dictated by Mauro Bentley III, MD Transcribed by Merline Peraza Authenticated and [facility]
--- NOTE | 2024-09-06 11:36 | P.OP_ITS ---
Date of procedure: 09/06/24 Pre-op Diagnosis:: Left foot diabetic foot infection, traumatic Post-op Diagnosis:: Same Procedure performed:: Irrigation and sharp debridement left foot including skin and subcutaneous tissue bone for left foot infection Surgeon:: Mario Scott DO Marketing Team Lead(s):: [place] [facility] OCCUPATIONS INSTRUCTOR:: Ed Cody Anesthesia: GETA Estimated blood loss (mL): 10 Clinical Note:: Grossly infected left foot wound with purulence Operative findings:: Infected left foot wound with purulence and infection involving skin subcutaneous tissue soft tissues and bone Operative note:: Patient identified preoperatively. Left lower extremity marked with yes and my initials. Transferred operative suite placed upon operating bed general anesthesia was administered and airway secured. Left lower extremity was prepped and draped normal sterile fashion. Once prepped and draped with a Betadine draped prepped the final operative timeout was performed to identify proper patient procedure and extremity. Everyone involved in the case agreed. There were no counter indications to beginning. He has been on preoperative ant ibiotics. Examination of the wound of the foot showed large wound on the plantar aspect of the medial aspect of the left foot. This tracked to the calcaneus and just anterior to the plantar surface of the foot there is gross purulence and infected tissue present Sharp debridement was performed of the skin subcutaneous tissue deep layers to remove all obvious infected tissue. Cultures were taken with culture swabs. X-ray was brought in to identify the calcaneal heel spur which was abnormal on MRI imaging. Hayden was used to localize and rongeur was used to remove plantar heel spur. This was repaired and sent for bone culture. Irrigation was performed and repeated for 9000 mL. Decision was made for placement of wound VAC after all tissues that appear to be infected were debrided. Wound VAC was placed in the bed of the wound with a sponge. Wound VAC covering was used to protect the skin and bridge was placed over the opening to allow for placement of the suction device away from the plantar aspect of the foot. Suction was checked and found to be adequate and then the wound VAC was connected to 125 mmHg continuous pressure no leaks detected. Patient waken anesthesia taken recovery stable condition. Condition: stable Disposition: PACU Complications:: None apparent
--- NOTE | 2024-09-06 11:37 | EXP.ANES.I ---
[facility] Anesthesia Record Part I Anesthesia Record I Intake, IV Amount: 1,000 Hydration: Adequate Estimated blood loss (mL): 0 Urine output (mL): 0 Blood Pressure: 120/68 SaO2: 96 Pulse Rate: 77 Airway Patency: Patent Respiratory Rate: 12 Temperature: 98 F Patient is:: Awake and Stable Stable to PACU at:: 11:30
[2024-09-06 11:48] LABS: POC Glucose,Bedside 129 (70-110)
--- NOTE | 2024-09-06 12:07 | SUR.PHASEI ---
1200- report called to josé rocha on med surg floor. 1201- pt left in stable condition with josé rocha in pt room. Dressings CDI, vital signs stable, family at bedside.
[2024-09-06] MEDS: FUROSEMIDE 100MG/10ML VIAL 80 MG IV (12:20)
[2024-09-06] MEDS: LINEZOLID 600 MG/300 ML IV.SOLN 300 MG IV ×2 (12:22→22:51)
[2024-09-06] MEDS: humaLOG 100 UNITS/ML 10ML VIAL (SSI) SUBCUT ×3 (12:53→21:03)
[2024-09-06] MEDS: DOXYCYCLINE HYCLATE 100 MG in 0.9 % SODIUM CHLORIDE 250 ML 166.667 MG IV ×2 (13:54→21:02)
[2024-09-06] MEDS: HYDRALAZINE 20MG/ML VIAL 10 MG IV (16:10)
--- NOTE | 2024-09-06 16:27 | SW/DCPLANNER ---
Addendum entered by Lashay Beltran RN 09/06/24 16:31: Patient is set up to get wound vac through [facility] and requests outpatient therapy for wound vac changes. Spoke with Dr. Scott who states patient will need vac change twice a week. Order sent to wound care for scheduling. Information shared with nurse as patient will require wound vac change prior to DC and to apply the vac from [facility]. BARB Martin Original Note: Patient is scheduled for an outpatient wound vac change appointment w/ Kam on Tuesday 09/11 at 1PM.
--- NOTE | 2024-09-06 16:28 | P.PN_ITS ---
Subjective *Date: 09/06/24 *Time: 17:06 Interval history: Stable on room air this morning. Afebrile. Patient and spouse appear confused about plan. Explained the need for surgical intervention on his heel but finding of new diagnosis of diastolic heart failure. Patient reports that he has been having swelling in his legs for several months. Was not sure what it was from. Also complains of some exertional dyspnea. Not on any uretic home. Mainly on treatment for diabetes related. Explained that we need cardiology evaluation prior to surgery due to increased risk given new diagnosis of heart failure. Patient states understanding. Medical Exam Vital signs and Labs for Last 24 Hours: Vital Signs Temp Pulse Pulse Resp BP BP Pulse Ox 09/06/24 15:00 09/06/24 13:00 09/06/24 12:00 98.1 F 82 14 154/78 H 94 L 09/06/24 11:50 98.1 F 82 14 155/84 H 94 L 09/06/24 11:40 98.1 F 81 14 150/79 H 93 L 09/06/24 11:39 98 F 77 12 120/68 09/06/24 11:30 98.1 F 80 14 134/78 93 L 09/06/24 11:00 09/06/24 09:00 09/06/24 08:00 09/06/24 08:00 98.0 F 89 18 170/97 H 93 L 09/06/24 06:53 09/06/24 04:44 09/06/24 04:00 98.4 F 86 16 156/87 H 92 L 09/06/24 03:00 09/06/24 01:00 09/05/24 23:00 09/05/24 21:00 09/05/24 20:00 09/05/24 20:00 97.9 F 90 16 164/79 H 91 L 09/05/24 19:00 09/05/24 18:42 82 09/05/24 18:42 84 09/05/24 17:00 O2 Del Method O2 Flow Rate 09/06/24 15:00 Room Air 09/06/24 13:00 Room Air 09/06/24 12:00 Nasal Cannula 2 09/06/24 11:50 Nasal Cannula 2 09/06/24 11:40 Nasal Cannula 2 09/06/24 11:39 09/06/24 11:30 Nasal Cannula 2 09/06/24 11:00 Room Air 09/06/24 09:00 Room Air 09/06/24 08:00 Room Air 09/06/24 08:00 Room Air 09/06/24 06:53 Room Air 09/06/24 04:44 Room Air 09/06/24 04:00 Room Air 09/06/24 03:00 Room Air 09/06/24 01:00 Room Air 09/05/24 23:00 Room Air 09/05/24 21:00 Room Air 09/05/24 20:00 Room Air 09/05/24 20:00 Room Air 09/05/24 19:00 Room Air 09/05/24 18:42 09/05/24 18:42 09/05/24 17:00 Room Air Intake and Output 09/06/24 09/06/24 09/06/24 07:59 15:59 23:59 Intake Total 540 / 1810 1270 / 1810 Output Total 0 / 0 0 / 0 Balance 540 / 1810 1270 / 1810 Intake: Intake, Oral Amount 240 / 510 270 / 510 Intake, Total IV Amount 300 / 1300 1000 / 1300 Linezolid 600 mg In 300 ml @ 300 / 300 300 mls/hr IV Q12H [facility] Rx#: [id number] Output: Output, Urine Amount 0 / 0 0 / 0 Other: Number of Voids 2 Number of Unmeasured Voids 1 1 Weight 104 kg Patient Weight 09/06/24 23:59 Weight 104 kg Laboratory Results - last 24 hr 09/04/24 19:30: Hepatitis C Antibody Non reactive 09/05/24 16:32: POC Glucose 146 H 09/05/24 21:01: POC Glucose 213 H 09/06/24 06:29: POC Glucose 114 H 09/06/24 06:35: WBC 7.6, RBC 3.46 L, Hgb 9.7 L, Hct 28.6 L, MCV 82.6, MCH 28.1, MCHC 34.1, RDW 15.8, Plt Count 266, MPV 7.3 L, Neut % (Auto) 77.2, Lymph % (Auto) 15.8, [place] % (Auto) 4.6, Eos % (Auto) 1.9, Baso % (Auto) 0.4, Neut # (Auto) 5.9, Lymph # (Auto) 1.2, [place] # (Auto) 0.4, Eos # (Auto) 0.2, Baso # (Auto) 0.0, Sodium 136, Potassium 4.2, Chloride 103, Carbon Dioxide 32 H, Anion Gap 5.2, BUN 15, Creatinine 0.90, Estimated Creat Clear 140, Estimated GFR 88, Est GFR ( Amer) 107, Glucose 106 H, Calcium 7.9 L, Magnesium 1.9 09/06/24 09:59: POC Glucose 113 H 09/06/24 11:41: POC Glucose 129 H I & O for Labs for Last 24 Hours: Intake & Output 09/03/24 09/04/24 09/05/24 09/06/24 23:59 23:59 23:59 23:59 Intake Total 2206 / 2746 1810 / 1810 Output Total 0 / 0 0 / 0 Balance 2206 / 2746 1810 / 1810 Weight 99.836 kg 104 kg 104 kg Microbiology Reports for the Last 24 Hours: Microbiology 09/05/24 04:00 Ankle,Left Gram Stain - Final 09/05/24 04:00 Ankle,Left Wound Culture - Preliminary 09/04/24 22:29 Sputum - Expectorated Sputum Gram Stain - Final 09/04/24 22:29 Sputum - Expectorated Sputum Sputum Culture - Final 09/04/24 21:40 Blood Blood Culture - Preliminary NO GROWTH AFTER 24 HOURS 09/04/24 21:40 Blood Blood Culture - Preliminary NO GROWTH AFTER 24 HOURS Constitutional: Present no acute distress, obese, chronically ill appearing and cooperative Head: Present atraumatic and normocephalic ENT: Present normal exam Neck: Present normal inspection Respiratory: Present rhonchi, crackles (Diffuse bilaterally in lower lung mat[place]ws) and normal respiratory effort; Absent respiratory distress or wheezes Cardiac: Present Reg Rate and Rhythm GI: Present soft and normal bowel sounds; Absent distention or tenderness Extremities: Present normal inspection, full ROM and edema (4+ edema to knees, 3+ in thighs.) Comment:: Left heel with gross appearing wound with purulent drainage Skin: Present intact; Absent erythema Neuro: Present Grossly Intact, alert, awake, oriented x 3 and moves all extremities Assessment and Plan *Assessment and plan (1) Acute heart failure with preserved ejection fraction (HFpEF): Status: Acute Category: Medical Code(s): I50.31 - Acute diastolic (congestive) heart failure (2) Diastolic dysfunction: Status: Acute Category: Medical Code(s): I51.89 - Other ill-defined heart diseases (3) Infection of left foot: Status: Acute Category: Medical Code(s): L08.9 - Local infection of the skin and subcutaneous tissue, unspecified (4) Uncontrolled diabetes mellitus: Status: Chronic Qualifiers: Diabetes mellitus type: type 2 Glycemic state: with hyperglycemia Qualified Code(s): E11.65 - Type 2 diabetes mellitus with hyperglycemia Category: Medical (5) Hypoglycemic episode in patient with diabetes mellitus: Status: Acute Category: Medical Code(s): E11.649 - Type 2 diabetes mellitus with hypoglycemia without coma (6) Pneumonia: Status: Acute Category: Medical Code(s): J18.9 - Pneumonia, unspecified organism (7) CKD (chronic kidney disease) stage 1, GFR 90 ml/min or greater: Status: Chronic Category: Medical Code(s): N18.1 - Chronic kidney disease, stage 1 (8) Hypothyroidism: Status: Chronic Qualifiers: Hypothyroidism type: unspecified Qualified Code(s): E03.9 - Hypothyroidism, unspecified Category: Medical Code(s): E03.9 - Hypothyroidism, unspecified (9) Hypertension: Status: Chronic Qualifiers: Hypertension type: essential hypertension Qualified Code(s): I10 - Essential (primary) hypertension Category: Medical Code(s): I10 - Essential (primary) hypertension Plan 54-year-old with past medical history of hyperlipidemia, CKD, NIDDM, hypertension. Admitted for hypoglycemic episodes, found to have acute osteo in left heel along with acute finding of heart failure with preserved ejection fraction. Cardiology and orthopedics assisting with care. Continues to necessitate inpatient management. Problems addressed as follows: #Osteomyelitis - Stepped on metal nail in left heel early July. Had been on 7 days of Cipro around then by PCP. Had tetanus shot about 1 year ago. - MRI suggestive of osteo of left calcaneal spur, with bone marrow edema and overlying soft tissue edema. - Ortho was consulted, going for debridement this morning, will likely place wound VAC. - Continue Zyvox (allergic to vanc), cefepime 2 g every 8 hours for possible osteomyelitis -Taken to surgery today, bone culture obtained. Wound VAC in place. Discussed case with orthopedics. Will need to go home with wound VAC. Further management pending bone culture results. -White count normalized at 7.6, hemoglobin 9.7. Repeat CBC, CMP, magnesium ordered for the morning. # Acute HFpEF exacerbation - Pulmonary edema, BNP 2280. Started IV Lasix 80mg BID after BNP resulted - ECHO shows G3DD with LVEF 55%. - Cardiology consulted for pre-op risk assessment as for above, okay to proceed with surgery, caution with volume intraoperatively. No plan for heart cath at this time. Lipid panel ordered for the morning. Given echocardiogram findings, recommend cardiac MRI as an outpatient. -Close monitoring of electrolytes and kidney function with diuresis. BUN 15, creatinine 0.9. Potassium 4.2 with magnesium 1.9. #Suspected CAP - CTA shows interstitial changes. Concern for pneumonia versus pulmonary edema. In the setting of rhinovirus on respiratory panel, viral component to pneumonia. Will continue doxycycline 100 mg twice daily for respiratory component. #Hypertension: Continue lisinopril. Initiate Lasix 80 mg IV twice daily due to severe volume overload and diastolic dysfunction. #hypothyrodism: TSH 4.18, free T41.4, continue levothyroxine 25 mcg daily. FULL CODE Lovenox 40 Diabetic diet after surgery
[2024-09-06] MEDS: LABETALOL 5MG/ML 20ML MDV 10 MG IV (16:59)
[2024-09-06 17:34] LABS: POC Glucose,Bedside 162 (70-110)
[2024-09-06 17:34] LABS: POC Glucose,Bedside 402 (70-110)
--- NOTE | 2024-09-06 18:20 | PC.NURSE ---
AOX4, WOUND VAC PLACED TODAY DURING PROCEDURE BUT NO DRAINAGE NOTED THUS FAR. MEDICATED FOR HYPERTENSION PER MAR, FSBS ELEVATED TODAY MEDICATED WITH HIGH-INTENSITY SSI. NON-WEIGHTBEARING TO LEFT HEEL.
[2024-09-06] MEDS: INSULIN GLARGINE 100 UNITS/ML 3ML FLEXPEN 10 UNIT SUBCUT (21:01)
[2024-09-06] MEDS: ACETAMINOPHEN 325MG TAB 650 MG PO (21:02)
[2024-09-06] MEDS: ATORVASTATIN 20MG TABLET 20 MG PO (21:02)
[2024-09-07] MEDS: CEFEPIME HCL 2 GM in 0.9 % SODIUM CHLORIDE 100 ML IV ×3 (00:53→16:20)
[2024-09-07] MEDS: ACETAMINOPHEN 325MG TAB 650 MG PO (00:54)
[2024-09-07 04:00] VITALS: BP 162/84; PULSE 81; RESP 18; TEMP 36.5; O2SAT 93; BMI 29.8
[2024-09-07 04:15] VITALS: BP 170/90
[2024-09-07] MEDS: HYDRALAZINE 20MG/ML VIAL 10 MG IV (04:18)
[2024-09-07] MEDS: humaLOG 100 UNITS/ML 10ML VIAL (SSI) SUBCUT ×4 (05:33→21:16)
[2024-09-07 05:49] LABS: POC Glucose,Bedside 244 (70-110)
[2024-09-07] MEDS: LEVOTHYROXINE 25MCG (0.025MG) TAB 25 MCG PO (06:36)
[2024-09-07 07:50] LABS: Basophils % 0.3 % (0.1-2.0); Eosinophils % 0.1 % (0.1-12.0); Hematocrit 29.3 % (42.0-52.0); Hemoglobin 9.7 g/dL (14.1-18.0); Lymphocytes # 1.1 K/mm3 (0.7-4.5); Lymphocytes % 9.8 % (10-50); Mean Corpuscular HGB Conc 33.2 g/dL (31.8-35.4); Mean Corpuscular Hemoglobin 27.9 pg (27.0-31.2); Mean Corpuscular Volume 84.3 fl (80-94); Mean Platelet Volume 7.4 fl (7.4-10.4); Monocytes # 0.5 K/mm3 (0.1-1.0); Monocytes % 4.9 % (1.7-9.3); Neutrophils # 9.2 K/mm3 (1.8-7.8); Neutrophils % 84.9 % (37.0-80.0); Platelet Count 284 K/mm3 (142-424); Red Blood Count 3.47 M/mm3 (4.60-6.20); Red Cell Distribution Width 15.8 % (11.5-17.5); White Blood Count 10.9 K/mm3 (4.8-10.8)
--- NOTE | 2024-09-07 07:52 | P.PN_ITS ---
Subjective *Date: 09/07/24 *Time: 17:24 Interval history: Patient states he is feeling somewhat better today. Significant improvement in swelling in his legs. No chest pain or shortness of breath. No nausea or vomiting. Redness improving in left lower leg. Glucose this morning elevated, will increase Lantus. Tolerating p.o. intake. Medical Exam Vital signs and Labs for Last 24 Hours: Vital Signs Temp Pulse Pulse Resp BP BP Pulse Ox 09/07/24 06:39 09/07/24 05:00 09/07/24 04:15 170/90 H 09/07/24 04:00 97.7 F 81 18 162/84 H 93 L 09/07/24 02:50 09/07/24 01:00 09/06/24 23:49 98.1 F 88 18 149/80 H 95 09/06/24 23:00 09/06/24 21:00 09/06/24 20:00 09/06/24 19:40 98.4 F 101 H 18 153/81 H 94 L 09/06/24 18:19 09/06/24 18:18 151/76 H 09/06/24 18:16 93 H 18 158/77 H 95 09/06/24 17:50 91 H 18 151/76 H 95 09/06/24 17:00 09/06/24 16:59 179/87 H 09/06/24 16:50 96 H 18 161/79 H 96 09/06/24 15:50 98.4 F 91 H 18 159/79 H 95 09/06/24 15:00 09/06/24 14:50 98.1 F 97 H 18 175/90 H 94 L 09/06/24 14:20 98.2 F 95 H 18 166/81 H 94 L 09/06/24 13:50 98.6 F 97 H 18 169/83 H 93 L 09/06/24 13:20 98.5 F 95 H 18 166/94 H 93 L 09/06/24 13:00 09/06/24 12:50 98.7 F 91 H 16 166/85 H 96 09/06/24 12:35 98.7 F 87 16 151/85 H 96 09/06/24 12:20 98.3 F 81 16 162/77 H 94 L 09/06/24 12:05 98.6 F 82 16 160/85 H 93 L 09/06/24 12:00 98.1 F 82 14 154/78 H 94 L 09/06/24 11:50 98.1 F 82 14 155/84 H 94 L 09/06/24 11:40 98.1 F 81 14 150/79 H 93 L 09/06/24 11:39 98 F 77 12 120/68 09/06/24 11:30 98.1 F 80 14 134/78 93 L 09/06/24 11:00 09/06/24 09:00 09/06/24 08:00 09/06/24 08:00 98.0 F 89 18 170/97 H 93 L O2 Del Method O2 Flow Rate 09/07/24 06:39 Room Air 09/07/24 05:00 Room Air 09/07/24 04:15 09/07/24 04:00 Room Air 09/07/24 02:50 Room Air 09/07/24 01:00 Room Air 09/06/24 23:49 Room Air 09/06/24 23:00 Room Air 09/06/24 21:00 Room Air 09/06/24 20:00 Room Air 09/06/24 19:40 Room Air 09/06/24 18:19 Room Air 09/06/24 18:18 09/06/24 18:16 Room Air 09/06/24 17:50 Room Air 09/06/24 17:00 Room Air 09/06/24 16:59 09/06/24 16:50 Room Air 09/06/24 15:50 Room Air 09/06/24 15:00 Room Air 09/06/24 14:50 Room Air 09/06/24 14:20 Room Air 09/06/24 13:50 Room Air 09/06/24 13:20 Room Air 09/06/24 13:00 Room Air 09/06/24 12:50 Room Air 09/06/24 12:35 Room Air 09/06/24 12:20 Room Air 09/06/24 12:05 Room Air 09/06/24 12:00 Nasal Cannula 2 09/06/24 11:50 Nasal Cannula 2 09/06/24 11:40 Nasal Cannula 2 09/06/24 11:39 09/06/24 11:30 Nasal Cannula 2 09/06/24 11:00 Room Air 09/06/24 09:00 Room Air 09/06/24 08:00 Room Air 09/06/24 08:00 Room Air Intake and Output 09/06/24 09/06/24 09/07/24 15:59 23:59 07:59 Intake Total 1270 / 2350 540 / 2350 Output Total 0 / 0 Balance 1270 / 2350 540 / 2350 Intake: Intake, Oral Amount 270 / 1050 540 / 1050 Intake, Total IV Amount 1000 / 1300 Output: Output, Urine Amount 0 / 0 Other: Number of Unmeasured Voids 1 1 Weight 99.875 kg Patient Weight 09/07/24 23:59 Weight 99.875 kg Laboratory Results - last 24 hr 09/06/24 09:59: POC Glucose 113 H 09/06/24 11:41: POC Glucose 129 H 09/06/24 12:50: POC Glucose 162 H 09/06/24 17:18: POC Glucose 402 H* 09/07/24 05:32: POC Glucose 244 H 09/07/24 06:56: WBC 10.9 H D, RBC 3.47 L, Hgb 9.7 L, Hct 29.3 L, MCV 84.3, MCH 27.9, MCHC 33.2, RDW 15.8, Plt Count 284, MPV 7.4, Neut % (Auto) 84.9 H, Lymph % (Auto) 9.8 L, [place] % (Auto) 4.9, Eos % (Auto) 0.1, Baso % (Auto) 0.3, Neut # (Auto) 9.2 H, Lymph # (Auto) 1.1, [place] # (Auto) 0.5, Eos # (Auto) 0.0, Baso # (Auto) 0.0 I & O for Labs for Last 24 Hours: Intake & Output 09/04/24 09/05/24 09/06/24 09/07/24 23:59 23:59 23:59 23:59 Intake Total 2206 / 2746 2350 / 2350 Output Total 0 / 0 0 / 0 Balance 2206 / 2746 2350 / 2350 Weight 99.836 kg 104 kg 104 kg 99.875 kg Microbiology Reports for the Last 24 Hours: Microbiology 09/04/24 21:40 Blood Blood Culture - Preliminary NO GROWTH AFTER 48 HOURS 09/04/24 21:40 Blood Blood Culture - Preliminary NO GROWTH AFTER 48 HOURS 09/06/24 10:40 Foot,Left - Abscess Gram Stain - Final 09/05/24 04:00 Ankle,Left Gram Stain - Final 09/05/24 04:00 Ankle,Left Wound Culture - Preliminary 09/04/24 22:29 Sputum - Expectorated Sputum Gram Stain - Final 09/04/24 22:29 Sputum - Expectorated Sputum Sputum Culture - Final Constitutional: Present no acute distress, obese, chronically ill appearing and cooperative Head: Present atraumatic and normocephalic ENT: Present normal exam Neck: Present normal inspection Respiratory: Present rhonchi, crackles (Diffuse bilaterally in lower lung matthews) and normal respiratory effort; Absent respiratory distress or wheezes Cardiac: Present Reg Rate and Rhythm GI: Present soft and normal bowel sounds; Absent distention or tenderness Extremities: Present normal inspection, full ROM and edema (Interval improvement in edema, 2+ bilateral lower extremities.) Comment:: Left heel with wound VAC in place, no significant erythema Skin: Present intact; Absent erythema Neuro: Present Grossly Intact, alert, awake, oriented x 3 and moves all extremities Assessment and Plan *Assessment and plan (1) Acute heart failure with preserved ejection fraction (HFpEF): Status: Acute Category: Medical Code(s): I50.31 - Acute diastolic (congestive) heart failure (2) Diastolic dysfunction: Status: Acute Category: Medical Code(s): I51.89 - Other ill-defined heart diseases (3) Infection of left foot: Status: Acute Category: Medical Code(s): L08.9 - Local infection of the skin and subcutaneous tissue, unspecified (4) Uncontrolled diabetes mellitus: Status: Chronic Qualifiers: Diabetes mellitus type: type 2 Glycemic state: with hyperglycemia Qualified Code(s): E11.65 - Type 2 diabetes mellitus with hyperglycemia Category: Medical (5) Hypoglycemic episode in patient with diabetes mellitus: Status: Acute Category: Medical Code(s): E11.649 - Type 2 diabetes mellitus with hypoglycemia without coma (6) Pneumonia: Status: Acute Category: Medical Code(s): J18.9 - Pneumonia, unspecified organism (7) CKD (chronic kidney disease) stage 1, GFR 90 ml/min or greater: Status: Chronic Category: Medical Code(s): N18.1 - Chronic kidney disease, stage 1 (8) Hypothyroidism: Status: Chronic Qualifiers: Hypothyroidism type: unspecified Qualified Code(s): E03.9 - Hypothyroidism, unspecified Category: Medical Code(s): E03.9 - Hypothyroidism, unspecified (9) Hypertension: Status: Chronic Qualifiers: Hypertension type: essential hypertension Qualified Code(s): I10 - Essential (primary) hypertension Category: Medical Code(s): I10 - Essential (primary) hypertension Plan 54-year-old with past medical history of hyperlipidemia, CKD, NIDDM, hypertension. Admitted for hypoglycemic episodes, found to have acute osteo in left heel along with acute finding of heart failure with preserved ejection fraction. Cardiology and orthopedics assisting with care. Continues to necessitate inpatient management. Diuresing well. Anticipate discharge to [place]. Problems addressed as follows: #Osteomyelitis - Stepped on metal nail in left heel early July. Had been on 7 days of Cipro around then by PCP. Had tetanus shot about 1 year ago. - MRI suggestive of osteo of left calcaneal spur, with bone marrow edema and overlying soft tissue edema. - Ortho was consulted, status postdebridement with bone culture obtained yes terday. Wound VAC in place. Showing improvement. White count 10.9, ESR greater than 140, CRP elevated at 14.9 - Continue Zyvox (allergic to vanc), cefepime 2 g every 8 hours for possible osteomyelitis; will transition to oral Zyvox and Levaquin at discharge to complete antibiotics for osteomyelitis. - Repeat CBC, CMP, magnesium ordered for the morning. Close monitoring of kidney function and electrolytes given diuresis # Acute HFpEF exacerbation - Pulmonary edema, BNP 2280. Started IV Lasix 80mg BID after BNP resulted -Diuresing well. Improving swelling in legs. Kidney function remained stable today with BUN 25, creatinine 1.1. Electrolytes normal with potassium 3.9, magnesium 1.8. - ECHO shows G3DD with LVEF 55%. - Cardiology consulted for pre-op risk assessment as for above, okay to proceed with surgery, continue diuresis. Recommend cardiac MRI as an outpatient. #Suspected CAP - CTA shows interstitial changes. Concern for pneumonia versus pulmonary edema. In the setting of rhinovirus on respiratory panel, viral component to pneumonia. Discontinue doxycycline as infection would be covered by antibiotics above for osteomyelitis #Hypertension: Continue lisinopril. Initiate Lasix 80 mg IV twice daily due to severe volume overload and diastolic dysfunction. #hypothyrodism: TSH 4.18, free T41.4, continue levothyroxine 25 mcg daily. FULL CODE Lovenox 40 Diabetic diet
[2024-09-07 08:00] VITALS: BP 142/72; PULSE 94; RESP 18; TEMP 36.6; O2SAT 95
[2024-09-07 08:09] LABS: Albumin Level 2.8 g/dl (3.5-5.0); Chloride 99 mmol/L (98-107); Sodium 134 mmol/L (136-145)
[2024-09-07 08:10] LABS: Cholesterol 99 mg/dl (140-200); HDL Cholesterol 25 mg/dl (40-60); Triglycerides 71 mg/dl (30-150); VLDL Cholesterol 14 mg/dL (0-40)
[2024-09-07 08:11] LABS: Anion Gap 7.9 mEq/L (5-15); Blood Urea Nitrogen 25 mg/dl (9-20); Carbon Dioxide 31 mmol/L (22.0-30.0); Creatinine Clearance Estimated 110 mL/min (50-200); Estimated Glomerular Filt Rate 70 ml/min (>60); GFR (African American) 85 ML/MIN (>60); Potassium 3.9 mmoL/L (3.5-5.1)
[2024-09-07] MEDS: LISINOPRIL 20MG TABLET 40 MG PO (08:11)
[2024-09-07] MEDS: METOPROLOL SUCCINATE XL 25MG TABLET 25 MG PO (08:11)
[2024-09-07 08:12] LABS: Alanine Aminotransferase 15 U/L (12-78); Albumin/Globulin Ratio 0.8 (1.1-1.8); Alkaline Phosphatase 116 U/L (38-126); Aspartate Amino Transferase 26 U/L (17-59); Bilirubin,Total 0.6 mg/dl (0.2-1.3); Globulin 3.7 g/dL (1.3-3.2); Glucose 209 mg/dl (74-100); Magnesium 1.8 mg/dl (1.6-2.3); Total Protein,Serum 6.5 g/dl (6.3-8.2)
[2024-09-07] MEDS: FUROSEMIDE 100MG/10ML VIAL 80 MG IV ×2 (08:13→16:04)
[2024-09-07] MEDS: ENOXAPARIN 40MG/0.4ML SYRINGE 40 MG SUBCUT (08:14)
[2024-09-07 08:20] LABS: Direct LDL Cholesterol 49.64 mg/dL (100-129)
[2024-09-07 08:24] LABS: C-Reactive Protein 14.9 mg/L (0-4)
[2024-09-07] MEDS: DOXYCYCLINE HYCLATE 100 MG in 0.9 % SODIUM CHLORIDE 250 ML 166.667 MG IV (09:02)
[2024-09-07 09:29] LABS: Erythrocyte Sedimentation Rate > 140 mm/hr (0-20)
[2024-09-07] MEDS: LINEZOLID 600 MG/300 ML IV.SOLN 300 MG IV ×2 (11:59→23:20)
[2024-09-07 12:00] VITALS: BP 156/85; PULSE 84; RESP 18; TEMP 36.6; O2SAT 98
[2024-09-07 16:00] VITALS: BP 162/83; PULSE 86; RESP 18; TEMP 36.8; O2SAT 95
[2024-09-07 16:42] LABS: POC Glucose,Bedside 206 (70-110)
[2024-09-07 16:42] LABS: POC Glucose,Bedside 189 (70-110)
--- NOTE | 2024-09-07 18:05 | PC.NURSE ---
no acute changes since previous assessment. wound vac remains in place minimal drainage noted.
[2024-09-07 20:00] VITALS: BP 163/93; PULSE 95; RESP 16; TEMP 36.9; O2SAT 96
[2024-09-07] MEDS: ATORVASTATIN 20MG TABLET 20 MG PO (21:13)
[2024-09-07] MEDS: INSULIN GLARGINE 100 UNITS/ML 3ML FLEXPEN 20 UNIT SUBCUT (21:16)
[2024-09-08] VITALS: BP 120/56; PULSE 90; RESP 16; TEMP 36.9; O2SAT 95
[2024-09-08] MEDS: CEFEPIME HCL 2 GM in 0.9 % SODIUM CHLORIDE 100 ML IV (01:16)
[2024-09-08 04:00] VITALS: BP 181/99; PULSE 87; RESP 18; TEMP 36.8; O2SAT 97; BMI 31.9
[2024-09-08 06:24] VITALS: BP 166/90
[2024-09-08] MEDS: HYDRALAZINE 20MG/ML VIAL 10 MG IV (06:24)
[2024-09-08] MEDS: LEVOTHYROXINE 25MCG (0.025MG) TAB 25 MCG PO (06:24)
[2024-09-08 06:55] LABS: POC Glucose,Bedside 87 (70-110)
[2024-09-08 06:55] LABS: POC Glucose,Bedside 222 (70-110)
--- NOTE | 2024-09-08 07:48 | P.DS_ITS ---
General Admission date:: 09/04/24 Discharge date: 09/08/24 HPI HPI HPI: 54-year-old diabetic male who had been treated on an outpatient basis for laceration foot infection on the left side. He was admitted to the hospital with hypoglycemic episode orthopedics consulted regarding treatment options for left foot infection. He reports that he cut his foot in his garage and initially prior to p.o. antibiotic treatment with Cipro had severe swelling and infection in the foot. Patient reports that after given antibiotics his foot continued to improve. He reports that today compared to yesterday and the day b efore he still seen slight improvement in the foot. Has been no large amount of drainage. He reports that the redness and swelling is significantly better. He had a CT scan that showed possible abscess but soft tissue infection around the foot. Hospital Course Hospital Course Hospital Course: 54-year-old with past medical history of hyperlipidemia, CKD, NIDDM, hypertension. Admitted for hypoglycemic episodes, found to have acute osteo in left heel along with acute finding of heart failure with preserved ejection fraction. Cardiology and orthopedics assisting with care. Continues to necessitate inpatient management. Diuresing well. Anticipate discharge tomorrow. Problems addressed as follows: # Suspected osteomyelitis # Cellulitis - Stepped on metal nail in left heel early July. Had been on 7 days of Cipro around then by PCP. Had tetanus shot about 1 year ago. MRI suggestive of osteo of left calcaneal spur, with bone marrow edema and overlying soft tissue edema. Ortho was consulted, status postdebridement with bone culture obtained 09/06. Wound VAC placed on left heel. White count showed normalization. Erythema resolving. No significant purulent drainage. Much improved after diuresis and improvement in edema. Based on suspected infections, was treated with Zyvox and cefepime during admission. Will transition to Zyvox 600 mg twice daily and Levaquin 750 mg daily. Will need to complete at least 2 weeks if not 6 weeks of therapy depending on if bone cultures come back positive for osteomyelitis or not or the wound is simply just bad cellulitis. Antibiotics sent. Defer full duration/course to orthopedics at their discretion and with follow-up. Stable to discharge home with follow-up with orthopedics as an outpatient. Patient provided with a rolling walker at discharge. Wound VAC changed on day of discharge. Follow-up with outpatient wound care for further management and dressing changes every 3 days. Okay to toe-touch, nonweightbearing on heel until follow-up with orthopedics # Acute HFpEF exacerbation - Pulmonary edema, BNP 2280. Started IV Lasix 80mg BID after BNP resulted. Patient diuresed well during admission. Swelling improving in his legs as well as improvement in any sensation of shortness of breath. Kidney function remained stable with BUN of 26, creatinine 1.2 on day of discharge. Will continue Bumex 1 mg daily for volume management. Cardiology consulted for pre- op risk assessment as for above, okay to proceed with surgery, continue diuresis. Recommend cardiac MRI as an outpatient. Defer to PCP or cardiology as an outpatient. #Suspected CAP - CTA shows interstitial changes. Concern for pneumonia versus pulmonary edema. In the setting of rhinovirus on respiratory panel, viral component to pneumonia. Discontinue doxycycline as infection would be covered by antibiotics above for osteomyelitis. Stable on room air throughout admission #Hypertension: Continue lisinopril. Initiated on Lasix for edema and hypertension. Responded well. Transition to Bumex to continue 1 mg daily. #hypothyrodism: TSH 4.18, free T41.4, continue levothyroxine 25 mcg daily. Total time spent on discharge 48 minutes in counseling, documentation, chart review, and direct care with patient. Exam Data for Last 24 hours Vital signs and Labs for Last 24 Hours: Temp Pulse Resp BP Pulse Ox O2 Del Method O2 Flow Rate 98.2 F 87 18 166/90 H 97 Room Air 2 09/08/24 04:00 09/08/24 04:00 09/08/24 04:00 09/08/24 06:24 09/08/24 04:00 09/08/24 06:32 09/06/24 12:00 Laboratory Results - last 24 hr 09/07/24 06:56: WBC 10.9 H D, RBC 3.47 L, Hgb 9.7 L, Hct 29.3 L, MCV 84.3, MCH 27.9, MCHC 33.2, RDW 15.8, Plt Count 284, MPV 7.4, Neut % (Auto) 84.9 H, Lymph % (Auto) 9.8 L, [place] % (Auto) 4.9, Eos % (Auto) 0.1, Baso % (Auto) 0.3, Neut # (Auto) 9.2 H, Lymph # (Auto) 1.1, [place] # (Auto) 0.5, Eos # (Auto) 0.0, Baso # (Auto) 0.0, ESR > 140 H, Sodium 134 L, Potassium 3.9, Chloride 99, Carbon Dioxide 31 H, Anion Gap 7.9, BUN 25 H D, Creatinine 1.10 D, Estimated Creat Clear 110, Estimated GFR 70, Est GFR ( Amer) 85 D, Glucose 209 H, Calcium 8.0 L, Magnesium 1.8, Total Bilirubin 0.6, AST 26 D, ALT 15, Alkaline Phosphatase 116, C-Reactive Protein 14.9 H D, Total Protein 6.5, Albumin 2.8 L, Globulin 3.7 H, Albumin/Globulin Ratio 0.8 L, Triglycerides 71, Cholesterol 99 L , LDL Cholesterol Direct 49.64 L, VLDL Cholesterol 14, HDL Cholesterol 25 L, Cholesterol/HDL Ratio 4.0 H 09/07/24 11:56: POC Glucose 189 H 09/07/24 16:02: POC Glucose 206 H 09/07/24 21:15: POC Glucose 222 H 09/08/24 06:09: POC Glucose 87 I & O for Last 24 hours: Intake & Output 09/05/24 09/06/24 09/07/24 09/08/24 23:59 23:59 23:59 23:59 Intake Total 2206 / 2746 2350 / 2350 750 / 1410 660 / 660 Output Total 0 / 0 0 / 0 3425 / 3425 375 / 375 Balance 2206 / 2746 2350 / 2350 -267 / -2014 285 / 285 Weight 104 kg 104 kg 99.875 kg 106.912 kg Microbiology Reports for the Last 24 Hours: Microbiology 09/05/24 04:00 Ankle,Left Gram Stain - Final 09/05/24 04:00 Ankle,Left Wound Culture - Preliminary 09/06/24 10:40 Foot,Left - Abscess Gram Stain - Final 09/06/24 10:40 Foot,Left - Abscess Abscess Culture - Preliminary Constitutional Constitutional: no acute distress, obese, chronically ill appearing and cooperative *Routine HEENT Exam Head: Present normocephalic Eye: Present EOMI and PERRL ENT: Present mucous membranes moist *Routine Neck Exam Neck: Present supple; Absent lymphadenopathy *Routine Respiratory Exam Respiratory: Present CTA bilaterally; Absent rhonchi, wheezes or crackles *Routine Cardiovascular Exam Cardiovascular: Present RRR *Routine Abdominal Exam Abdominal: Present soft and normoactive bowel sounds; Absent tenderness *Routine Rectal Exam Patient deferred: visual exam *Routine Exam Patient deferred: penile exam *Routine Extremities Exam Extremities: Present edema (improving, decreased to 1+ in BLE); Absent cyanosis or clubbing Comments: wound vac on left medial heel. *Routine Skin Exam Skin: Present intact and warm; Absent rash *Routine Neurological Exam Neurological: Present alert, oriented X3 and moving all extremities; Absent altered mental status Routine Psychiatric Exam Psychiatric: Present normal affect Results Data Completed and Pending Labs on day of discharge: Labs from last 24 hours 09/08/24 09/07/24 09/07/24 06:09 21:15 16:02 WBC RBC Hgb Hct MCV MCH MCHC RDW Plt Count MPV Neut % (Auto) Lymph % (Auto) [place] % (Auto) Eos % (Auto) Baso % (Auto) Neut # (Auto) Lymph # (Auto) [place] # (Auto) Eos # (Auto) Baso # (Auto) ESR Sodium Potassium Chloride Carbon Dioxide Anion Gap BUN Creatinine Estimated Creat Clear Estimated GFR Est GFR ( Amer) Glucose POC Glucose 87 222 H 206 H Calcium Magnesium Total Bilirubin AST ALT Alkaline Phosphatase C-Reactive Protein Total Protein Albumin Globulin Albumin/Globulin Ratio Triglycerides Cholesterol LDL Cholesterol Direct VLDL Cholesterol HDL Cholesterol Cholesterol/HDL Ratio 09/07/24 09/07/24 11:56 06:56 WBC 10.9 H D RBC 3.47 L Hgb 9.7 L Hct 29.3 L MCV 84.3 MCH 27.9 MCHC 33.2 RDW 15.8 Plt Count 284 MPV 7.4 Neut % (Auto) 84.9 H Lymph % (Auto) 9.8 L [place] % (Auto) 4.9 Eos % (Auto) 0.1 Baso % (Auto) 0.3 Neut # (Auto) 9.2 H Lymph # (Auto) 1.1 [place] # (Auto) 0.5 Eos # (Auto) 0.0 Baso # (Auto) 0.0 ESR > 140 H Sodium 134 L Potassium 3.9 Chloride 99 Carbon Dioxide 31 H Anion Gap 7.9 BUN 25 H D Creatinine 1.10 D Estimated Creat Clear 110 Estimated GFR 70 Est GFR ( Amer) 85 D Glucose 209 H POC Glucose 189 H Calcium 8.0 L Magnesium 1.8 Total Bilirubin 0.6 AST 26 D ALT 15 Alkaline Phosphatase 116 C-Reactive Protein 14.9 H D Total Protein 6.5 Albumin 2.8 L Globulin 3.7 H Albumin/Globulin Ratio 0.8 L Triglycerides 71 Cholesterol 99 L LDL Cholesterol Direct 49.64 L VLDL Cholesterol 14 HDL Cholesterol 25 L Cholesterol/HDL Ratio 4.0 H Preliminary micro results at discharge 09/05/24 04:00 Wound Culture - Preliminary Ankle,Left 09/06/24 10:40 Abscess Culture - Preliminary Foot,Left - Abscess 09/04/24 21:40 Blood Culture - Preliminary Blood NO GROWTH AFTER 48 HOURS 09/04/24 21:40 Blood Culture - Preliminary Blood NO GROWTH AFTER 48 HOURS DS: Diagnosis Discharge Diagnosis (1) Acute heart failure with preserved ejection fraction (HFpEF): Status: Acute Code(s): I50.31 - Acute diastolic (congestive) heart failure (2) Diastolic dysfunction: Status: Acute Code(s): I51.89 - Other ill-defined heart diseases (3) Infection of left foot: Status: Acute Code(s): L08.9 - Local infection of the skin and subcutaneous tissue, unspecified (4) Uncontrolled diabetes mellitus: Status: Chronic Qualifiers: Diabetes mellitus type: type 2 Glycemic state: with hyperglycemia Qualified Code(s): E11.65 - Type 2 diabetes mellitus with hyperglycemia (5) Hypoglycemic episode in patient with diabetes mellitus: Status: Acute Code(s): E11.649 - Type 2 diabetes mellitus with hypoglycemia without coma (6) Pneumonia: Status: Acute Code(s): J18.9 - Pneumonia, unspecified organism (7) CKD (chronic kidney disease) stage 1, GFR 90 ml/min or greater: Status: Chronic Code(s): N18.1 - Chronic kidney disease, stage 1 (8) Hypothyroidism: Status: Chronic Code(s): E03.9 - Hypothyroidism, unspecified Qualifiers: Hypothyroidism type: unspecified Qualified Code(s): E03.9 - Hypothyroidism, unspecified (9) Hypertension: Status: Chronic Code(s): I10 - Essential (primary) hypertension Qualifiers: Hypertension type: essential hypertension Qualified Code(s): I10 - Essential (primary) hypertension Meds Home Medications and Allergies Home Medications ?Medication ?Instructions ?Recorded ?Confirmed ?Type glimepiride 4 mg tablet 4 mg PO DAILY 09/04/24 09/05/24 History levothyroxine 25 mcg tablet 25 mcg PO DAILY 09/04/24 09/05/24 History metformin 500 mg tablet 500 mg PO BID 09/04/24 09/05/24 History sitagliptin phosphate 100 mg 100 mg PO DAILY 09/04/24 09/05/24 History tablet (Januvia) atorvastatin 20 mg tablet 20 mg PO DAILY 09/05/24 09/05/24 History buspirone 5 mg tablet 5 mg PO BID 09/05/24 09/05/24 History ergocalciferol (vitamin D2) 1,250 1,250 mcg PO WEEKLY 09/05/24 09/05/24 History mcg (50,000 unit) capsule lisinopril 40 mg tablet 40 mg PO DAILY 09/05/24 09/05/24 History metoprolol succinate 25 mg 25 mg PO DAILY 09/05/24 09/05/24 History tablet,extended release 24 hr semaglutide 0.25 mg or 0.5 mg (2 0.25 mg SQ WEEKLY 09/05/24 09/05/24 History mg/3 mL) subcutaneous pen injector (Ozempic) bumetanide 1 mg tablet 1 mg PO DAILY 30 days #30 tabs 09/08/24 Rx levofloxacin 750 mg tablet 750 mg PO 1100 40 days #40 tabs 09/08/24 Rx linezolid 600 mg tablet 600 mg PO BID 40 days #80 tabs 09/08/24 Rx New Prescriptions to Start Prescriptions: bumetanide Sarkis Johnson levofloxacin Sarkis Johnson linezolid Sarkis Johnson Allergies Allergy/AdvReac Type Severity Reaction Status Date / Time vancomycin Allergy Mild Rash Verified 09/04/24 23:35 erythromycin base Allergy Unknown Unknown Verified 09/04/24 23:35 (ERYTHROMYCIN BASE) allergy reaction Penicillins (PENICILLINS) Allergy Unknown Unknown Verified 09/04/24 23:35 allergy reaction aspirin AdvReac Intermediate GI bleed Verified 06/07/23 13:30 Discharge Plan Disposition Patient Disposition: Home, Self-Care Condition: Fair Discharge Order Discharge Orders: Discharge Order (Routine); Ordered 09/08/24 Ordered By: Sarkis Johnson Follow up Plan Follow up with: Mario Scott DO [Staff Physician] - Enter time for follow up (The office will call you with a follow up appt. ) Kennedy Cotton MD [Staff Physician] - Enter time for follow up (The office will call you with an appt. ) Prescriptions/Medication Reconciliation: New levofloxacin 750 mg Tablet 750 mg PO 1100 40 Days Qty: 40 0RF linezolid 600 mg tablet 600 mg PO BID 40 Days Qty: 80 0RF bumetanide 1 mg Tablet 1 mg PO DAILY 30 Days Qty: 30 0RF Continued metformin 500 mg tablet 500 mg PO BID levothyroxine 25 mcg tablet 25 mcg PO DAILY Patient Comments: TAKE 1 TABLET BY MOUTH ONCE DAILY DIRECTED FOR THYROID FOR 90 DAYS glimepiride 4 mg tablet 4 mg PO DAILY Patient Comments: TAKE 1 TABLET BY MOUTH ONCE DAILY DIRECTED FOR DIABETES FOR 90 DAYS Januvia 100 mg tablet 100 mg PO DAILY atorvastatin 20 mg tablet 20 mg PO DAILY Patient Comments: TAKE 1 TABLET BY MOUTH ONCE DAILY DIRECTED metoprolol succinate 25 mg tablet extended release 24 hr 25 mg PO DAILY Patient Comments: TAKE 1 TABLET BY MOUTH ONCE DAILY DIRECTED FOR HIGH BLOOD PRESSURE FOR 90 DAYS ergocalciferol (vitamin D2) 1,250 mcg (50,000 unit) capsule 1,250 mcg PO WEEKLY Patient Comments: TAKE 1 CAPSULE BY MOUTH ONCE A WEEK DIRECTED lisinopril 40 mg tablet 40 mg PO DAILY Patient Comments: TAKE 1 TABLET BY MOUTH ONCE DAILY DIRECTED FOR HIGH BLOOD PRESSURE FOR 90 DAYS Ozempic 0.25 mg or 0.5 mg (2 mg/3 mL) pen injector 0.25 mg SQ WEEKLY Patient Comments: INJECT 0.25MG SUBCUTANEOUSLY ONCE A WEEK Held buspirone 5 mg tablet 5 mg PO BID Hold Instructions: until complete antibiotic course Discontinued hydrochlorothiazide 25 mg tablet 25 mg PO DAILY Patient Comments: TAKE 1 TABLET BY MOUTH ONCE DAILY DIRECTED FOR FLUID FOR 30 DAYS Problem Reconciliation Problems Reviewed?: Yes Patient Discharge Instructions ACTIVITY: Continue current activity DIET: continue same diet Stand Alone Forms: [facility] Work Release Patient Instructions: DI for Pneumonia -- Adult, DI for Hypoglycemia, DI for Surgical Site Infection, DI for Incision and Drainage Print Language: Peruvian Providers Primary Care Provider: Hilaria Zhong Admit Provider: Clifton Garcia Attending Provider: Clifton Garcia
[2024-09-08 08:00] VITALS: BP 160/86; PULSE 98; RESP 18; TEMP 36.7; O2SAT 95
[2024-09-08 08:13] LABS: Chloride 101 mmol/L (98-107); Sodium 139 mmol/L (136-145)
[2024-09-08 08:16] LABS: Alanine Aminotransferase 14 U/L (12-78); Albumin/Globulin Ratio 0.8 (1.1-1.8); Alkaline Phosphatase 109 U/L (38-126); Aspartate Amino Transferase 26 U/L (17-59); Bilirubin,Total 0.6 mg/dl (0.2-1.3); Blood Urea Nitrogen 26 mg/dl (9-20); Carbon Dioxide 36 mmol/L (22.0-30.0); Creatinine Clearance Estimated 108 mL/min (50-200); Estimated Glomerular Filt Rate 63 ml/min (>60); GFR (African American) 77 ML/MIN (>60); Globulin 3.8 g/dL (1.3-3.2); Glucose 74 mg/dl (74-100); Magnesium 1.7 mg/dl (1.6-2.3); Total Protein,Serum 6.8 g/dl (6.3-8.2)
[2024-09-08 08:31] LABS: Hematocrit 30.3 % (42.0-52.0); Hemoglobin 9.6 g/dL (14.1-18.0); Mean Corpuscular HGB Conc 31.7 g/dL (31.8-35.4); Mean Corpuscular Hemoglobin 27.6 pg (27.0-31.2); Mean Corpuscular Volume 87.1 fl (80-94); Red Blood Count 3.48 M/mm3 (4.60-6.20); White Blood Count 9.7 K/mm3 (4.8-10.8)
[2024-09-08] MEDS: BUMETANIDE 1 MG TABLET PO (08:31)
[2024-09-08] MEDS: LISINOPRIL 20MG TABLET 40 MG PO (08:31)
[2024-09-08 08:32] LABS: Basophils % 0.3 % (0.1-2.0); Eosinophils # 0.2 K/mm3 (0.0-0.4); Eosinophils % 1.5 % (0.1-12.0); Lymphocytes # 2.1 K/mm3 (0.7-4.5); Lymphocytes % 21.8 % (10-50); Mean Platelet Volume 9.3 fl (7.4-10.4); Monocytes # 0.5 K/mm3 (0.1-1.0); Monocytes % 4.9 % (1.7-9.3); Neutrophils # 6.9 K/mm3 (1.8-7.8); Neutrophils % 71.1 % (37.0-80.0); Platelet Count 277 K/mm3 (142-424); Red Cell Distribution Width 15.6 % (11.5-17.5)
[2024-09-08] MEDS: ENOXAPARIN 40MG/0.4ML SYRINGE 40 MG SUBCUT (08:32)
[2024-09-08] MEDS: METOPROLOL SUCCINATE XL 25MG TABLET 25 MG PO (08:32)
--- NOTE | 2024-09-08 10:00 | P.PN_ITS ---
Subjective *Date: 09/08/24 *Time: 10:00 Medical Exam Vital signs and Labs for Last 24 Hours: Vital Signs Temp Pulse Resp BP Pulse Ox O2 Del Method 09/08/24 09:00 Room Air 09/08/24 08:00 98.0 F 98 H 18 160/86 H 95 Room Air 09/08/24 08:00 Room Air 09/08/24 06:32 Room Air 09/08/24 06:24 166/90 H 09/08/24 05:00 Room Air 09/08/24 04:00 98.2 F 87 18 181/99 H 97 Room Air 09/08/24 03:00 Room Air 09/08/24 01:00 Room Air 09/08/24 00:00 98.4 F 90 16 120/56 L 95 Room Air 09/07/24 22:52 Room Air 09/07/24 21:00 Room Air 09/07/24 20:00 Room Air 09/07/24 20:00 98.4 F 95 H 16 163/93 H 96 Room Air 09/07/24 18:04 Room Air 09/07/24 17:00 Room Air 09/07/24 16:00 98.2 F 86 18 162/83 H 95 Room Air 09/07/24 15:00 Room Air 09/07/24 13:00 Room Air 09/07/24 12:00 97.9 F 84 18 156/85 H 98 Room Air 09/07/24 11:00 Room Air Intake and Output 09/07/24 09/08/24 09/08/24 23:59 07:59 15:59 Intake Total 240 / 1410 660 / 1140 480 / 1140 Output Total 1400 / 3425 375 / 375 Balance -1159 285 / 765 480 / 765 Intake: Intake, Oral Amount 240 / 1110 360 / 840 480 / 840 Intake, Total IV Amount 300 / 300 Linezolid 600 mg In 300 ml @ 300 / 300 300 mls/hr IV Q12H [facility] Rx#: [id number] Output: Output, Urine Amount 1400 / 3425 375 / 375 Other: Number of Unmeasured Voids 0 Number of Bowel Movements 1 1 Weight 106.912 kg Patient Weight 09/08/24 23:59 Weight 106.912 kg Laboratory Results - last 24 hr 09/07/24 11:56: POC Glucose 189 H 09/07/24 16:02: POC Glucose 206 H 09/07/24 21:15: POC Glucose 222 H 09/08/24 06:09: POC Glucose 87 09/08/24 07:25: WBC 9.7, RBC 3.48 L, Hgb 9.6 L, Hct 30.3 L, MCV 87.1, MCH 27.6, MCHC 31.7 L, RDW 15.6, Plt Count 277, MPV 9.3, Neut % (Auto) 71.1, Lymph % (Auto) 21.8, [place] % (Auto) 4.9, Eos % (Auto) 1.5, Baso % (Auto) 0.3, Neut # (Auto) 6.9, Lymph # (Auto) 2.1, [place] # (Auto) 0.5, Eos # (Auto) 0.2, Baso # (Auto) 0.0, Sodium 139, Potassium 4.0, Chloride 101, Carbon Dioxide 36 H, Anion Gap 6.0, BUN 26 H, Creatinine 1.20, Estimated Creat Clear 108, Estimated GFR 63, Est GFR ( Amer) 77, Glucose 74, Calcium 8.0 L, Magnesium 1.7, Total Bilirubin 0.6, AST 26, ALT 14, Alkaline Phosphatase 109, Total Protein 6.8, Albumin 3.0 L, Globulin 3.8 H, Albumin/Globulin Ratio 0.8 L I & O for Labs for Last 24 Hours: Intake & Output 09/05/24 09/06/24 09/07/24 09/08/24 23:59 23:59 23:59 23:59 Intake Total 2206 / 2746 2350 / 2350 750 / 1410 1140 / 1140 Output Total 0 / 0 0 / 0 3425 / 3425 375 / 375 Balance 2206 / 2746 2350 / 2350 -2674 / 765 / 765 Weight 104 kg 104 kg 99.875 kg 106.912 kg Microbiology Reports for the Last 24 Hours: Microbiology 09/05/24 04:00 Ankle,Left Gram Stain - Final 09/05/24 04:00 Ankle,Left Wound Culture - Preliminary 09/06/24 10:40 Foot,Left - Abscess Gram Stain - Final 09/06/24 10:40 Foot,Left - Abscess Abscess Culture - Preliminary The patient's infection will respond to the chosen ABx?: Yes Is the patient receiving the right drug, dose, and route?: Yes Could a more targeted ABx be ordered?: No (AFEBRILE, WBC WNL, ABSCESS PENDING)
--- NOTE | 2024-09-08 10:15 | P.PN_ITS ---
Subjective Narrative: No new complaints. Very pleased with how much better he feels. Denies CP, SOB, paresthesias today. Exam Data for Last 24 hours Vital signs and Labs for Last 24 Hours: Temp Pulse Resp BP Pulse Ox O2 Del Method O2 Flow Rate 98.0 F 98 H 18 160/86 H 95 Room Air 2 09/08/24 08:00 09/08/24 08:00 09/08/24 08:00 09/08/24 08:00 09/08/24 08:00 09/08/24 09:00 09/06/24 12:00 Laboratory Results - last 24 hr 09/07/24 11:56: POC Glucose 189 H 09/07/24 16:02: POC Glucose 206 H 09/07/24 21:15: POC Glucose 222 H 09/08/24 06:09: POC Glucose 87 09/08/24 07:25: WBC 9.7, RBC 3.48 L, Hgb 9.6 L, Hct 30.3 L, MCV 87.1, MCH 27.6, MCHC 31.7 L, RDW 15.6, Plt Count 277, MPV 9.3, Neut % (Auto) 71.1, Lymph % (Auto) 21.8, [place] % (Auto) 4.9, Eos % (Auto) 1.5, Baso % (Auto) 0.3, Neut # (Auto) 6.9, Lymph # (Auto) 2.1, [place] # (Auto) 0.5, Eos # (Auto) 0.2, Baso # (Auto) 0.0, Sodium 139, Potassium 4.0, Chloride 101, Carbon Dioxide 36 H, Anion Gap 6.0, BUN 26 H, Creatinine 1.20, Estimated Creat Clear 108, Estimated GFR 63, Est GFR ( Amer) 77, Glucose 74, Calcium 8.0 L, Magnesium 1.7, Total Bilirubin 0.6, AST 26, ALT 14, Alkaline Phosphatase 109, Total Protein 6.8, Albumin 3.0 L, Globulin 3.8 H, Albumin/Globulin Ratio 0.8 L I & O for Last 24 hours: Intake & Output 09/05/24 09/06/24 09/07/24 09/08/24 23:59 23:59 23:59 23:59 Intake Total 2206 / 2746 2350 / 2350 750 / 1410 1140 / 1140 Output Total 0 / 0 0 / 0 3425 / 3425 375 / 375 Balance 2206 / 2746 2350 / 2350 -2674 765 / 765 Weight 104 kg 104 kg 99.875 kg 106.912 kg Microbiology Reports for the Last 24 Hours: Microbiology 09/05/24 04:00 Ankle,Left Gram Stain - Final 09/05/24 04:00 Ankle,Left Wound Culture - Preliminary 09/06/24 10:40 Foot,Left - Abscess Gram Stain - Final 09/06/24 10:40 Foot,Left - Abscess Abscess Culture - Preliminary Detailed Lower Extremity Exam Comments: BLE Edema significantly improved, 2+ currently. Wound vac in place with good seal, working @ 125mmHg. SErosang drainage in cartridge. Grossly NVID at all toes. Progress Note: A&P Assessment and plan (1) Acute heart failure with preserved ejection fraction (HFpEF): Status: Acute (2) Diastolic dysfunction: Status: Acute (3) Infection of left foot: Status: Acute Assessment and plan: Continue with ABX per discharge instructions. WOund care to be continued as outpatient. Follow up in clinic with Tyler. Follow up with PCP for continued medical care. TTWB with rolling walker for ambulation. (4) Uncontrolled diabetes mellitus: Status: Chronic (5) Hypoglycemic episode in patient with diabetes mellitus: Status: Acute (6) Pneumonia: Status: Acute (7) CKD (chronic kidney disease) stage 1, GFR 90 ml/min or greater: Status: Chronic (8) Hypothyroidism: Status: Chronic (9) Hypertension: Status: Chronic
[2024-09-08] MEDS: MORPHINE 4MG/ML SYRINGE 4 MG IV (10:45)
[2024-09-08] MEDS: levoFLOXacin 750 MG TABLET PO (11:56)
[2024-09-08] MEDS: LINEZOLID 600 MG/300 ML IV.SOLN 300 MG IV (11:57)
[2024-09-08] MEDS: humaLOG 100 UNITS/ML 10ML VIAL (SSI) SUBCUT (12:31)
[2024-09-08 19:20] LABS: POC Glucose,Bedside 167 (70-110)
--- NOTE | 2024-09-09 10:37 | CARE MANAGER ---
Patient is unable to ambulate safely with cane and will require assist of rolling walker due to mobility impairment. BARB Martin
--- NOTE | 2024-09-09 11:14 | SW/DCPLANNER ---
Spoke with patient on the phone. Patient stated that he is doing well. Patient stated that he was able to crab picker with medicine from [facility]. Told patient that we sent the order to [facility] for his walker. Patient asked about a shower bench and if we could get a order for one of them and told patient that his insurance wont pay for liability issues and that he can purchase one. Patient stated that he has no concerns or questions at this time. Tom Salazar
--- OUTSIDE RECORDS SUMMARY | 2024-09-10 10:27 | XMS_ITS | Referral Summary ---
Author Organization [employer] Address [address] [place] [id number] Care Team Providers Care Dog Food Shredder Operator Name Role Phone Unavailable Primary Care Provider Unavailabl e Social History Tobacco Use Types Packs/Day Years Used Date Smoking Tobacco: Never Assessed Sex and Gender Information Value Date Recorded Sex Assigned at Not on file Legal Sex Male 6:43 PM CDT Gender Identity Not on file Sexual Orientation Not on file Plan of Treatment Not on file
--- OUTSIDE RECORDS SUMMARY | 2024-09-10 10:27 | XMS_ITS | Clinical Summary ---
Author Organization Healthcare Address [address] [place] [address] Care Team Providers Care Signals Officer Name Role Phone Hilaria Zhong Primary Care Provider [phone] Family History Medical History Relation Name Comments Cancer Father Diabetes Father Diabetes Mother Hypertension Mother Relation Name Status Comments Father Mother Social History Tobacco Use Types Packs/Day Years Used Date Smoking Tobacco: Every Day Sex and Gender Information Value Date Recorded Sex Assigned at Not on file Legal Sex Male 6:36 PM EDT Gender Identity Not on file Sexual Orientation Not on file Last Filed Vital Signs Vital Sign Reading Time Taken Comments Blood Pressure - - Pulse - - Temperature - - Respiratory Rate - - Oxygen Saturation - - Inhaled Oxygen Concentration - - Weight 112 kg (247 lb 6.4 oz) 07/03/2017 1:38 PM EDT Height 182.9 cm (6') 07/03/2017 1:38 PM EDT Body Mass Index 33.55 07/03/2017 1:38 PM EDT Plan of Treatment Not on file Care Teams Signals Officer Relationship Specialty Start Date End Date Hilaria Zhong PA [address] [place] [address] PCP - General 02/05/21
--- OUTSIDE RECORDS SUMMARY | 2024-09-10 10:27 | XMS_ITS | Clinical Summary ---
Author Organization [employer] Address [address] [place] [id number] Care Team Providers Care Assistant Football Coach Name Role Phone Unavailable Primary Care Provider [...]
--- OUTSIDE RECORDS SUMMARY | 2024-09-10 10:27 | XMS_ITS | Encounter Summary ---
Author Organization Healthcare Address [facility] [place] [address] Care Team Providers Care Self Storage Manager Name Role Phone Unavailable Primary Care Provider Unavailabl e Encounter Details Date Type Department Care Team (Late st Contact Info) Description 07/03/2017 [facility] Vitals Encounter [facility] [address] [place] [address] Provider, MD Erika [address] [place] [id number] Social History Tobacco Use Types Packs/Day Years Used Date Smoking Tobacco: Never Assessed Sex and Gender Information Value Date Recorded Sex Assigned at Not on file Legal Sex Male 6:36 PM EDT Gender Identity Not on file Sexual Orientation Not on file documented as of this encounter Last Filed Vital Signs Vital Sign Reading Time Taken Comments Blood Pressure - - Pulse - - Temperature - - Respiratory Rate - - Oxygen Saturation - - Inhaled Oxygen Concentration - - Weight 112 kg (247 lb 6.4 oz) 07/03/2017 1:38 PM EDT Height 182.9 cm (6') 07/03/2017 1:38 PM EDT Body Mass Index 33.55 07/03/2017 1:38 PM EDT documented in this encounter Plan of Treatment Not on file documented as of this encounter Visit Diagnoses Not on filedocumented in this encounter
--- NOTE | 2024-09-12 15:00 | CARE MANAGER ---
I have worked on getting prior authorization for patient's linezolid. Approval for 28 pills every 30 days received today, patient will pay the out of pocket cost of $10 for the other 28 pills needed per month. Cost quoted by [facility]. Patient called to notify of approval.
== END 2024-09-08 14:26 | disposition home or self-care (01) | DRG 628 ==
LOC: ER 21:39 → 2ND 21:56
PROVIDERS: Nurse Practitioner Family; Orthopaedic Surgery; Physician Assistant; Student in an Organized Health Care Education/Training Program; Admitting Provider Internal Medicine; Emergency Provider Emergency Medicine; PCP Physician Assistant; Visit Provider Internal Medicine
PROC: 0QBM0ZZ Excision of Left Tarsal, Open Approach (ICD-10-PCS; principal; 2024-09-06 09:00)
DX: E11.649 Type 2 diabetes mellitus with hypoglycemia without coma (principal); I50.31 Acute diastolic (congestive) heart failure; J18.9 Pneumonia, unspecified organism; I13.0 Hypertensive heart and chronic kidney disease with heart failure and stage 1 through stage 4 chronic kidney disease, or unspecified chronic kidney disease; I96 Gangrene, not elsewhere classified; M87.875 Other osteonecrosis, left foot; S91.332A Puncture wound without foreign body, left foot, initial encounter; Z79.84 Long term (current) use of oral hypoglycemic drugs; Z79.85 Long-term (current) use of injectable non-insulin antidiabetic drugs; Z79.899 Other long term (current) drug therapy; F17.210 Nicotine dependence, cigarettes, uncomplicated; N18.1 Chronic kidney disease, stage 1; E11.22 Type 2 diabetes mellitus with diabetic chronic kidney disease; E55.9 Vitamin D deficiency, unspecified; E78.5 Hyperlipidemia, unspecified; E03.9 Hypothyroidism, unspecified; L08.9 Local infection of the skin and subcutaneous tissue, unspecified; W22.8XXA Striking against or struck by other objects, initial encounter; B95.61 Methicillin susceptible Staphylococcus aureus infection as the cause of diseases classified elsewhere; B95.2 Enterococcus as the cause of diseases classified elsewhere; E16.A2 Hypoglycemia level 2
CPT/HCPCS: 36415; 71045; 71275; 73620; 73701; 73718; 73721; 76000; 80048; 80053; 80061; 80307; 80320; 81001; 82803; 82962; 83036; 83605; 83735; 83880; 84145; 84439; 84443; 84484; 85025; 85651; 86140; 86803; 87040; 87070; 87075; 87077; 87186; 87205; 87389; 87633; 93005; 93306; 94640; 99285; J0360; J0692; J1100; J1650; J1920; J1940; J2020; J2250; J2270; J2405; J2543; J3010; J3370; J7042; J7620; Q9967

== ENCOUNTER 2024-09-23 15:00 | Outpatient (RCR) | payer BC, SELFPAY ==
--- NOTE | 2024-09-11 15:59 | HMH.PTOPWND ---
Rehab Outpt Wound Evaluation Rehab OP Wound Evaluation Start: 09/11/24 15:44 Freq: Status: Active Protocol: Document 09/11/24 15:44 BAKARI (Rec: 09/11/24 15:58 PHORAYDIN [id number]) E-signed By Kam Villafuerte, PT Subjective/History History History This is the initial PT eval for Erasto Brenner, 54 yowm who presents with L medial heel wound which has been present for several months overall, but is now S/P I&D performed 09/06/24. He reports No c/o pain at this time and no tenderness to palpation. He had calcaneal bone spur removed during surgery due to possible osteomyelitis identified via MRI prior to surgery. he has PMH of hyperlipidemia, CKD, NIDDM, hypertension. He presents to clinic this date with wound VAC dressing in place. Subjective Subjective No edema noted at this time and no palpation tenderness. Minimal sanguineous drainage noted in VAC canister. New diagnosis of cancer in past 12 No months? Wound Eval Wound Left Medial Heel Wound Type Diabetic Foot Ulcer Is This a Chronic Wound Yes Wound Length (cm) 2.2 Wound Width (cm) 4.3 Wound Depth (cm) 2.7 Wound Bed Appearance Beefy Red,Yellow Percentage Granulated (%) 50 Percentage of Slough (%) 50 Undermining Position 9 o'clock Undermining Length (cm) 1.8 Surrounding Tissue Appearance [place] Drainage Description Serosanguineous Drainage Amount Small Wound Topical Solution/Irrigant Saline Irrigant Packing Type Woundvac Sponge Primary Dressing Transparent Drape Wound Secondary Dressing Type Gauze Roll/Wrap Wound Debridement Method Sharps,Forceps,Gauze, Mechanical Wound Debridement Amount of Tissue Minimal Removed Dressing Change Patient Tolerance Tolerated Well Harper-Diane Wound Assessment Tool Assessment Wound size 2=Length x Width 4--<16 sq cm Wound depth 5=Full thickness skin loss with extensive destruction, tissue necrosis Wound edges 3=Well-defined, not attached to wound base Wound undermining 2=Undermining <2 cm in any area Necrotic tissue type 2=White/cox non-viable tissue &/or non-adherent yellow slough Necrotic tissue amount 3=25% to 50% of wound covered Exudate type 3=Serosanguineous: thin, watery, pale red/pink Exudate amount 3=Small Skin color surrounding wound 1=[place] or normal for ethnic group Peripheral tissue edema 1=No swelling or edema Peripheral tissue induration 2=Induration,<2 cm around wound Granulation tissue 4=[place], &/or dull, dusky red & /or fills < or = 25% of wound Epithelialization 5= < 25% wound covered Wound assessment total score 36 Wound Problems/Impairments Impairments Problems/Impairmments Impaired Gait Pattern,Impaired Walking,Impaired Standing, Impaired Shower/Bathing, Impaired Household Care,Wound Care Needs,Impaired Self Care/ Self Management Prognosis Rehab Potential Good Comment Skilled therapy is indicated to reduce overall wound surface area and help pt return to PLOF. Clinical Impression Consistent with Diagnosis Yes Short Term Goals Number of Weeks 6 Decrease Wound Area Yes: by 25% Tile Roofer Goals Number of Weeks 12 Decrease Wound Area Yes: by 75% Patient to be Ind w/ HEP Yes Patient to be Ind w/ Home Wound Care/ Yes Dressing Changes Outpatient Therapy Plan of Care Treatment Plan May Include Therapeutic Exercise Including Home Yes Exercise Program Manual Therapy Techniques Yes Neuromuscular Re-education Yes Therapeutic Activities to Return to Yes Previous Functional/Work Level Gait Training Yes ADL/Self Care Education Yes Ultrasound/Phonophoresis Yes Orthotics/Bracing/Splinting Yes Wound Care Yes Eval/Re-Eval Yes Frequency Times per week 2-3 Duration Number of Weeks 12 Addendums This patient is a candidate for social No or vocational rehab? Patient/Guardian verbally acknowledges Yes understanding of treatment program and consents to further treatment? Patient/Guardian verbally acknowledges Yes understanding of diagnosis, prognosis and goals for treatment? Eval Complexity PT Charges 24738 - High Complexity PHYSICIAN CERTIFICATION: I certify the specified therapy services for Erasto Brenner are required, authorized, and reviewed every 30 days.
== END 2024-09-23 23:59 | disposition home or self-care (01) ==
LOC: PT 15:00
PROVIDERS: PCP Physician Assistant; Visit Provider Orthopaedic Surgery
DX: M86.9 Osteomyelitis, unspecified (principal)
CPT/HCPCS: 97163; 97605

== ENCOUNTER 2024-10-24 15:00 | Outpatient (RCR) | payer BC, SELFPAY ==
--- NOTE | 2024-10-10 09:48 | HMH.RHREAS ---
Rehab Reassessment Rehab OP Re-assessment Start: 09/26/24 15:20 Freq: Status: Active Protocol: Document 10/10/24 09:42 BAKARI (Rec: 10/10/24 09:48 PHOMOY [id number]) E-signed By Kam Villafuerte, PT Shan Wound Assessment Tool Assessment Wound size 2=Length x Width 4--<16 sq cm Wound depth 3=Full thickness skin loss involving damage or necrosis of Wound edges 3=Well-defined, not attached to wound base Wound undermining 1=None present Necrotic tissue type 1=Non visible Necrotic tissue amount 1=None visible Exudate type 2=Bloody Exudate amount 2=Scant, wound moist but no observable exudate Skin color surrounding wound 1=[place] or normal for ethnic group Peripheral tissue edema 1=No swelling or edema Peripheral tissue induration 1=None present Granulation tissue 2=Bright, beefy red;75% to 100 % of wound filled &/or tissue overgrowth Epithelialization 4=25% to < 50% wound covered Wound assessment total score 24 Rehab Re-assessment Subjective Subjective Pt reports his VAC pump is giving an alarm code last night and into today intermittently. They had to bring me a new pump yesterday because the battery wouldn't charge, and then this one stopped working right. I was worried it would mess something up. Otherwise, no new c/o or discomfort. Objective Objective Notes L medial heel wound: L= 1.2 cm , W= 4.3 cm, D= 1.2 cm. 100% granulation tissue. Wound surface area healing: Total Surface Area 45% healed vs IE. BWAT: 36 on IE vs 24 this date . Pain: 0/10 Assessment Progress Assessment Progressing as Expected Assessment Notes Pt has shown significant reduction of overall total surface area, wound depth, and BWAT calculation. Skilled therapy continues to be necessary to provide further complex dressing changes and improve wound healing time in order to aid pt return to OF . Patient goals met ST/1 LT/3 Plan Plan Continue per initial POC. Frequency of Therapy 2 x/wk Duration of therapy 4 wks Time and Billing Re-Eval Time 12 Re-Eval Billing Units 1 Charge for PT reassessment? Yes PHYSICIAN CERTIFICATION: I certify the specified therapy services for Erasto Brenner are required, authorized, and reviewed every 30 days.
== END 2024-10-24 23:59 | disposition home or self-care (01) ==
LOC: PT 15:00
PROVIDERS: PCP Physician Assistant; Visit Provider Orthopaedic Surgery
DX: Z98.890 Other specified postprocedural states (principal); M86.9 Osteomyelitis, unspecified
CPT/HCPCS: 97164; 97605

== ENCOUNTER 2024-11-21 15:00 | Outpatient (RCR) | payer BC, SELFPAY ==
--- NOTE | 2024-11-07 15:55 | HMH.RHREAS ---
Rehab Reassessment Rehab OP Re-assessment Start: 10/28/24 15:10 Freq: Status: Active Protocol: Document 11/07/24 15:50 BAKARI (Rec: 11/07/24 15:55 PHOMOY [id number]) E-signed By Kam Villafuerte, PT Shan Wound Assessment Tool Assessment Wound size 1=Length x Width <4 sq cm Wound depth 3=Full thickness skin loss involving damage or necrosis of Wound edges 3=Well-defined, not attached to wound base Wound undermining 1=None present Necrotic tissue type 1=Non visible Necrotic tissue amount 1=None visible Exudate type 3=Serosanguineous: thin, watery, pale red/pink Exudate amount 3=Small Skin color surrounding wound 1=[place] or normal for ethnic group Peripheral tissue edema 1=No swelling or edema Peripheral tissue induration 1=None present Granulation tissue 2=Bright, beefy red;75% to 100 % of wound filled &/or tissue overgrowth Epithelialization 4=25% to < 50% wound covered Wound assessment total score 25 Rehab Re-assessment Subjective Subjective Pt reports no c/o pain in the L foot at this time. He does continue to have increased edema throughout the L foot and ankle area. Objective Objective Notes L medial heel wound: L= 0.9 cm , W= 2.2 cm, D= 1.6 cm. 100% granulation tissue. Wound surface area healing: Total Surface Area 79% healed vs IE. BWAT: 36 on IE vs 25 this date . Pain: 0/10 Assessment Progress Assessment Progressing as Expected Assessment Notes Pt has shown significant reduction of overall total surface area, wound depth, and BWAT calculation. Skilled therapy continues to be necessary to provide further complex dressing changes and improve wound healing time in order to aid pt return to PLOF . Patient goals met ST/1 LT/3 Plan Plan Continue per initial POC Frequency of Therapy 2 x/wk Duration of therapy 4 wks Time and Billing Re-Eval Time 12 Re-Eval Billing Units 1 Charge for PT reassessment? Yes PHYSICIAN CERTIFICATION: I certify the specified therapy services for Erasto Brenner are required, authorized, and reviewed every 30 days.
== END 2024-11-21 23:59 | disposition home or self-care (01) ==
LOC: PT 15:00
PROVIDERS: PCP Physician Assistant; Visit Provider Orthopaedic Surgery
DX: M86.9 Osteomyelitis, unspecified (principal); Z98.890 Other specified postprocedural states
CPT/HCPCS: 97164; 97597

== ENCOUNTER 2024-11-28 15:47 | Outpatient (CLI) | payer BC, SELFPAY ==
[2024-11-28 16:31] LABS: Basophils % 0.3 % (0.1-2.0); Eosinophils # 0.1 K/mm3 (0.0-0.4); Eosinophils % 1.2 % (0.1-12.0); Hematocrit 38.2 % (42.0-52.0); Hemoglobin 11.9 g/dL (14.1-18.0); Lymphocytes # 1.3 K/mm3 (0.7-4.5); Lymphocytes % 17.1 % (10-50); Mean Corpuscular HGB Conc 31.2 g/dL (31.8-35.4); Mean Corpuscular Hemoglobin 27.5 pg (27.0-31.2); Mean Corpuscular Volume 88.2 fl (80-94); Mean Platelet Volume 9.2 fl (7.4-10.4); Monocytes # 0.4 K/mm3 (0.1-1.0); Monocytes % 5.5 % (1.7-9.3); Neutrophils # 5.9 K/mm3 (1.8-7.8); Neutrophils % 75.6 % (37.0-80.0); Platelet Count 274 K/mm3 (142-424); Red Blood Count 4.33 M/mm3 (4.60-6.20); Red Cell Distribution Width 17.3 % (11.5-17.5); White Blood Count 7.8 K/mm3 (4.8-10.8)
[2024-11-28 16:46] LABS: Albumin Level 3.3 g/dl (3.5-5.0); Chloride 100 mmol/L (98-107); Potassium 3.7 mmoL/L (3.5-5.1); Sodium 140 mmol/L (136-145)
[2024-11-28 16:48] LABS: Blood Urea Nitrogen 13 mg/dl (9-20); Estimated Glomerular Filt Rate 101 ml/min (>60); GFR (African American) 122 ML/MIN (>60)
[2024-11-28 16:49] LABS: Alanine Aminotransferase 18 U/L (12-78); Alkaline Phosphatase 152 U/L (38-126); Anion Gap 3.7 mEq/L (5-15); Aspartate Amino Transferase 27 U/L (17-59); Bilirubin,Direct 0.2 mg/dl (0.0-0.4); Bilirubin,Indirect 0.5 mg/dL (0.0-0.9); Bilirubin,Total 0.7 mg/dl (0.2-1.3); Bilirubin,Unconjugated 0.5 mg/dL (0.0-1.1); Calcium 8.6 mg/dl (8.4-10.2); Carbon Dioxide 40 mmol/L (22.0-30.0); Chol/HDL Ratio 2.7 (1-3.5); Cholesterol 125 mg/dl (140-200); Glucose 82 mg/dl (74-100); HDL Cholesterol 46 mg/dl (40-60); Total Protein,Serum 6.4 g/dl (6.3-8.2); Triglycerides 102 mg/dl (30-150); VLDL Cholesterol 20 mg/dL (0-40)
[2024-11-28 16:59] LABS: NT Pro Brain Natriuretic Pep. 6020 pg/mL (0-125)
[2024-11-28 17:00] LABS: Direct LDL Cholesterol 51.67 mg/dL (100-129)
[2024-11-28 17:08] LABS: Free T4 (Free Thyroxine) 1.36 ng/dl (0.78-2.19)
[2024-11-28 17:21] LABS: Thyroid Stimulating Hormone 3.64 uIU/mL (0.465-4.68)
[2024-11-29 15:19] LABS: Albumin 2.6 g/dL (2.9-4.4); Alpha-1-Globulin 0.3 g/dL (0.0-0.4); Gamma Globulin 1.7 g/dL (0.4-1.8); Protein, Total 6.7 g/dL (6.0-8.5)
[2024-11-29 16:12] LABS: Free Kappa Lt Chains 61.8 mg/L (3.3-19.4); Free Lambda Lt Chains 87.4 mg/L (5.7-26.3)
[2024-12-02 19:11] LABS: Immunoglobulin A, Qn 410 mg/dL (90-386); Immunoglobulin G, Qn 1733 mg/dL (603-1613); Immunoglobulin M, Qn 54 mg/dL (20-172)
[2024-12-04 11:48] LABS: PDF SCANNED IMAGE
== END 2024-11-28 23:59 | disposition home or self-care (01) ==
LOC: LAB 15:48
PROVIDERS: PCP Physician Assistant; Visit Provider Internal Medicine
DX: E11.22 Type 2 diabetes mellitus with diabetic chronic kidney disease (principal); I13.0 Hypertensive heart and chronic kidney disease with heart failure and stage 1 through stage 4 chronic kidney disease, or unspecified chronic kidney disease; I50.31 Acute diastolic (congestive) heart failure; N18.1 Chronic kidney disease, stage 1; I25.10 Atherosclerotic heart disease of native coronary artery without angina pectoris; E78.5 Hyperlipidemia, unspecified; E03.9 Hypothyroidism, unspecified
CPT/HCPCS: 80048; 80061; 80076; 82565; 82784; 83880; 83883; 84155; 84165; 84439; 84443; 84520; 85025; 86334; 93270

== ENCOUNTER 2024-12-02 13:41 | Outpatient (CLI) | payer BC, SELFPAY ==
[2024-12-04 17:15] LABS: Albumin, U 66.1 % (.); Alpha-1-Globulin, U 9.9 % (.); Alpha-2-Globulin, U 4.2 % (.); Beta Globulin, U 10.3 % (.); Gamma Globulin, U 9.5 % (.); M-Spike, % 5.4 % (Not Observed); M-Spike, mg/24 hr 434.2 mg/24 hr (Not Observed); Prot,24hr calculated 8040 mg/24 hr (30-150); Protein,Total,Urine 260.2 mg/dL (Not Estab.)
[2024-12-05 09:17] LABS: PDF: SCANNED IMAGE
== END 2024-12-02 23:59 | disposition home or self-care (01) ==
LOC: LAB 13:42
PROVIDERS: PCP Physician Assistant; Visit Provider Internal Medicine
DX: I50.31 Acute diastolic (congestive) heart failure (principal)
CPT/HCPCS: 84156; 84166

== ENCOUNTER 2024-12-05 14:43 | Outpatient (CLI) | payer BC, SELFPAY ==
[2024-12-09 11:19] LABS: Albumin, U 61.8 % (.); Alpha-1-Globulin, U 11.3 % (.); Alpha-2-Globulin, U 5.3 % (.); Beta Globulin, U 10.9 % (.); Gamma Globulin, U 10.7 % (.); M-Spike, % 5.4 % (Not Observed); Protein,Total,Urine 289.8 mg/dL (Not Estab.)
[2024-12-10 16:09] LABS: PDF: SCANNED IMAGE
== END 2024-12-05 23:59 | disposition home or self-care (01) ==
LOC: LAB 14:43
PROVIDERS: PCP Physician Assistant; Visit Provider Internal Medicine
DX: I11.9 Hypertensive heart disease without heart failure (principal); I50.31 Acute diastolic (congestive) heart failure; F17.210 Nicotine dependence, cigarettes, uncomplicated
CPT/HCPCS: 84156; 84166; 86335

== ENCOUNTER 2024-12-09 11:43 | Outpatient (CLI) | payer BC, SELFPAY ==
--- NOTE | 2024-12-09 11:44 | CT_ITS ---
APPROVED REPORT Radiagraph Operator: CLINICAL INDICATION Chest Pain TECHNIQUE Image Acquisition: A 128 slice MDCT scanner ([employer]) was used for data acquisition. A noncontrast coronary calcium scan was performed. A CT attenuation threshold of 130 Hounsfield units (HU) was used for the detection of calcium in contiguous voxels of 1 sq mm in area to be counted as individual lesions. Bolus tracking in the ascending aorta with a threshold of 180 HU was performed. Immediately afterwards, ECG synchronized cardiac CT was then performed from the cardiac base to apex using retrospective gating with ECG tube current modulation. A total of 85 mL of Isovue 370 mg/mL contrast medium was administered at 5 mL/sec followed by a saline flush using a biphasic injection protocol. A tube voltage of 120 KVp was used. The patient received the following medications prior to the cardiac CT. 100 mg of oral metoprolol 5 mg of intravenous metoprolol 15 mg of oral ivabradine 0.8 mg of sublingual nitroglycerin The average heart rate at the time of acquisition was 61 bpm and regular. Image Reconstruction Transaxial images were reconstructed at 0.67 mm slide thickness. Data was reviewed interactively on an advanced workstation capable of 2 and 3-dimensional displays in all conventional reconstruction formats, including multiplanar reformations, maximum intensity projections, curved multiplanar reformations, and volume rendered reconstructions. When applicable, selected routine images describing the relevant coronary anatomy and pathology were saved and sent to PACS. Complications None Technical Quality Overall image quality was fair. Coronary artery opacification was fair. Total DLP (Dose-Length Product) is 1783.7 mGy-cm. The reported value represents the total of one or more individual components during the CT acquisition of this date and at this time, and as such, the same value may appear in more than one CT report depending on the interpreting/reporting physicians. COMPARISON None FINDINGS CT Coronary Calcium Scoring LMA (Left Main Artery) = 0 LAD (Left Anterior Descending) = 298 LCX (Left Coronary Circumflex) = 375 RCA (Right Coronary Artery) = 1057 Total Calcium Score = 1730 using the AJ-130 method. The observed calcium score of 1730 is at 99th percentile for subjects of the same age, sex, and race/ethnicity. The interpretation of the calcium heart score is based on the following continuum*: 0 = no calcified plaque detected (risk of coronary artery disease is very low ??? less than 5%) 1-10 = calcium detected in extremely minimal levels (risk of coronary diseases is still low ??? less than 10%) 11-100 = mild levels of plaque detected with certainty (mild or minimal narrowing of heart arteries is likely) 101-400 = definite,at least moderate levels of plaque detected (relatively high risk of a heart attack within 3-5 years) >401-999 = extensive levels of plaque detected (high risk of heart attack, high levels of vascular disease are present, high likelihood of at least one significant coronary narrowing) *The calcium heart score quantifies the burden of coronary calcification/plaque in the coronary arteries. The calcium heart score is not able to evaluate the presence or burden of non-calcified (i.e. soft) plaque. There is no identifiable calcification in the aortic valve, mitral annulus or mitral valve, pericardium, or myocardium. Coronary CT Angiography The coronary arterial system is right dominant. Quantitative Stenosis Grading: Left Main (LM): The left main originates normally from the left sinus of Valsalva. The LM bifurcates into the left anterior descending artery and left circumflex artery. The LM is patent with no evidence of atherosclerosis. Left Anterior Descending (LAD) and Diagonal Branches: The LAD gives off 2 diagonal branch(es). there is mixed calcified/noncalcified plaque along the proximal and mid LAD segments, with up to 70-90% luminal stenosis. There is no evidence of LAD-myocardial bridge. Left Circumflex (LCX) and Obtuse Marginals (OM): The LCX gives off 1 Obtuse Marginal (OM) branch(es). There is mixed calcified/noncalcified plaque in the proximal LCx segment with up to 50-70% luminal stenosis. Right Coronary Artery (RCA): The RCA originates normally from the right sinus of Valsalva. The RCA gives off a posterior descending artery (PDA) and posterolateral (PL) branches. There is mixed calcified/noncalcified plaque in the proximal and mid RCA segments with up to 70-90% luminal stenosis. Non-Coronary Cardiac Findings: Analysis of the left ventricular (LV) structure and function was performed after 3-D reconstruction of the LV from axial images, with user-corrected automatic contouring for assessment of LV volumes and user-defined reconstruction from oblique planes for measurement of 3-D cardiac structure and function. -The left ventricle systolic function is normal. -There is no left atrial appendage filling defect. Two right pulmonary veins and two left pulmonary veins drain normally into the left atrium. -No pericardial thickening or calcification. -Central and branch pulmonary arteries in the [id number] are unremarkable. -Thoracic aorta within the visualized thoracic aortic-branches in the [id number] is unremarkable. Extracardiac Structures No significant extra-cardiac findings. Note, however, that this study is focused on the cardiac findings. IMPRESSION -Fair image quality due to presence of motion and blurring artifact. This may affect the diagnostic interpretation of the study findings. -Presence of extensive coronary calcification with an Agatston score = 1730 using the AJ-130 method. -The observed calcium score of 1730 is at 99th percentile for subjects of the same age, sex, and race/ethnicity. -Multivessel atherosclerotic coronary disease, with likely evidence of significant flow-limiting atherosclerosis of the proxima/midl LAD and proximal/mid RCA segments. -CAD-RADS 4A. Management recommendations per ACC/AHA guidelines*, as clinically appropriate. *Recommendations: CAD RADS 0: Reassurance. Consider non-atherosclerotic causes of chest pain. CAD RADS 1: Consider non-atherosclerotic causes of chest pain. Consider preventive therapy and risk factor modification. CAD RADS 2: Consider non-atherosclerotic causes of chest pain. Consider preventive therapy and risk factor modification, particularly for patients with nonobstructive plaque in multiple segments. CAD RADS 3: Consider further functional testing. Consider symptom-guided anti-ischemic and preventive pharmacotherapy as well as risk factor modification per published guideline statements. CAD RADS 4A: Consider further functional testing or invasive coronary angiography with revascularization per published guideline statements. Consider symptom-guided anti-ischemic and preventive pharmacotherapy as well as risk factor modification per published guideline statements. CAD RADS 4B: Invasive coronary angiography recommended with revascularization per published guideline statements. Consider symptom-guided anti-ischemic and preventive pharmacotherapy as well as risk factor modification per published guideline statements. CAD RADS 5: Consider invasive angiography and/or viability assessment with revascularization per published guideline statements. Consider symptom-guided anti-ischemic and preventive pharmacotherapy as well as risk factor modification per published guideline statements. CRITICAL RESULT None COMMUNICATION Per this written report The coronary and cardiac findings of this CCTA were reviewed, reported, and signed by Kennedy Cotton MD ([employer]) Conclusion Electronically signed by : Marcia Cotton MD 12/10/2024 13:30:46
[2024-12-09 12:10] VITALS: BMI 32.1
[2024-12-09 12:18] VITALS: BP 165/83; PULSE 88; RESP 18; O2SAT 98
[2024-12-09] MEDS: IVABRADINE HCL 7.5MG TABLET PO (12:35)
[2024-12-09] MEDS: METOPROLOL TARTRATE 50MG TABLET PO ×2 (12:35→13:26)
[2024-12-09 14:10] VITALS: BP 133/79; PULSE 64; RESP 18; O2SAT 95
[2024-12-09] MEDS: NITROGLYCERIN 0.4MG SL TABLET SL (14:10)
[2024-12-09 14:15] VITALS: BP 108/49; PULSE 65; RESP 18; O2SAT 93
[2024-12-09] MEDS: METOPROLOL TARTRATE 5MG/5ML VIAL 5 MG IV (14:15)
[2024-12-09 14:20] VITALS: BP 108/62; PULSE 62; RESP 18; O2SAT 93
[2024-12-09 14:25] VITALS: BP 107/71; PULSE 66; RESP 18; O2SAT 96
[2024-12-09] MEDS: SODIUM CHLORIDE 0.9% 10ML SYR (RAD ONLY) 10 ML IV (14:36)
[2024-12-09] MEDS: 0.9 % SODIUM CHLORIDE 50 ML VIAL IV (14:36)
[2024-12-09] MEDS: IOPAMIDOL-370 (76%);100ML BOTTLE 85 ML IV (14:36)
== END 2024-12-09 14:32 | disposition home or self-care (01) ==
LOC: RAD 11:44
PROVIDERS: PCP Physician Assistant; Visit Provider Internal Medicine
DX: I25.10 Atherosclerotic heart disease of native coronary artery without angina pectoris (principal); I51.89 Other ill-defined heart diseases; I50.31 Acute diastolic (congestive) heart failure; E78.5 Hyperlipidemia, unspecified; E03.9 Hypothyroidism, unspecified; E11.9 Type 2 diabetes mellitus without complications
CPT/HCPCS: 75574; Q9967

== ENCOUNTER 2024-12-10 10:17 | Outpatient (CLI) | payer BC, SELFPAY ==
[2024-12-10] MEDS: 0.9 % SODIUM CHLORIDE 50 ML VIAL 20 ML IV (12:27)
[2024-12-10] MEDS: SODIUM CHLORIDE 0.9% 10ML SYR (RAD ONLY) 10 ML IV (12:27)
[2024-12-10] MEDS: GADOTERIDOL INJ 20ML SYRINGE 20 ML IV (12:27)
[2024-12-10] MEDS: GADOTERIDOL INJ 10ML SYRINGE 2 ML IV (12:27)
== END 2024-12-10 23:59 | disposition home or self-care (01) ==
LOC: RAD 10:18
PROVIDERS: PCP Physician Assistant; Visit Provider Internal Medicine
DX: I25.10 Atherosclerotic heart disease of native coronary artery without angina pectoris (principal); I50.31 Acute diastolic (congestive) heart failure; E78.5 Hyperlipidemia, unspecified; E03.9 Hypothyroidism, unspecified; E11.9 Type 2 diabetes mellitus without complications
CPT/HCPCS: 75561; A9576

== ENCOUNTER 2024-12-23 14:00 | Outpatient (RCR) | payer BC, SELFPAY ==
--- NOTE | 2024-12-05 15:05 | HMH.RHREAS ---
Rehab Reassessment Rehab OP Re-assessment Start: 12/05/24 14:47 Freq: Status: Active Protocol: Document 12/05/24 14:48 BAKARI (Rec: 12/05/24 15:05 PHORAYDIN [id number]) E-signed By Kam Villafuerte, PT Shan Wound Assessment Tool Assessment Wound size 1=Length x Width <4 sq cm Wound depth 3=Full thickness skin loss involving damage or necrosis of Wound edges 3=Well-defined, not attached to wound base Wound undermining 1=None present Necrotic tissue type 1=Non visible Necrotic tissue amount 1=None visible Exudate type 2=Bloody Exudate amount 3=Small Skin color surrounding wound 1=[place] or normal for ethnic group Peripheral tissue edema 4=Pitting edema extends <4 cm around wound Peripheral tissue induration 1=None present Granulation tissue 2=Bright, beefy red;75% to 100 % of wound filled &/or tissue overgrowth Epithelialization 3=50% to <75% wound covered &/ or epithelial tissue extends to < 0.5cm Wound assessment total score 26 Rehab Re-assessment Subjective Subjective Pt continues to have no c/o pain. He reports he was seen by cardiology 1 wk ago with considerable changes to his medication regimen at that time. He has since lost considerable fluid wt over the past week and feels much better overall. Objective Objective Notes L medial foot wound: L= 0.3 cm , W= 0.2 cm, D= 1/8 cm. Edema: 2+ pitting edema remains in the L lower leg. TTP: 0/4 L LE Assessment Progress Assessment Progressing as Expected Assessment Notes Pt has shown significant reduction of overall total surface area, wound depth, and BWAT calculation. Skilled therapy continues to be necessary to provide further complex dressing changes and improve wound healing time in order to aid pt return to PLOF . Patient goals met ST/1 LT/3 Plan Plan Continue per initial POC Frequency of Therapy 1-2 x/wk Duration of therapy 4 wks Time and Billing Re-Eval Time 10 Re-Eval Billing Units 1 Charge for PT reassessment? Yes PHYSICIAN CERTIFICATION: I certify the specified therapy services for Erasto Brenner are required, authorized, and reviewed every 30 days.
== END 2024-12-23 23:59 | disposition home or self-care (01) ==
LOC: PT 14:00
PROVIDERS: Visit Provider Orthopaedic Surgery
DX: M86.9 Osteomyelitis, unspecified (principal)
CPT/HCPCS: 97164; 97597

== ENCOUNTER 2024-12-27 08:45 | Day surgery (SDC) | payer BC, SELFPAY ==
[2024-12-27] VITALS (11 sets, daily range): BP systolic 154–186; BP diastolic 80–100; PULSE 79–91; RESP 16–20; O2SAT 90–99; BMI 31.7; BMI 26.2
--- NOTE | 2024-12-27 07:21 | IR_ITS ---
APPROVED REPORT Patient Location: Outpatient PROCEDURES Left heart catheterization Left ventriculogram Selective coronary angiogram INDICATION Abnormal CCTA, Angina pectoris Informed consent was obtained prior to the procedure. COMPLICATIONS none Estimated Blood Loss: less than 10ml TECHNIQUE One percent lidocaine used to anesthetize the right anterior aspect of the wrist. The right radial artery was accessed via the Seldinger technique. A 6 [place] sheath was placed in the right radial artery. 2.5 mg of Verapamil, 800 mcg of nitroglycerin, 1mg Lidocaine and 5000 U Heparin were given through the arterial sheath. The 6 [place] JL 3 catheter was also used to perform left heart catheterization, left ventriculogram and selective coronary angiogram. At the end of the procedure the sheath was removed good hemostasis was achieved using Traclet band, patient was transferred to the postop holding area in stable condition. ANGIOGRAPHIC RESULTS The left main artery Has a distal 20% stenosis The left anterior descending artery Has a proximal 70% stenosis just distal to the large first septal saw repairer and small first diagonal artery but proximal to a large first diagonal artery. The mid to distal LAD is small caliber but patent. The large second diagonal artery is bifurcating and covers more anterior territory than the LAD proper The circumflex artery [place] has a long proximal 80 to 90% stenosis The right coronary artery Has proximal concentric 30% stenosis mid vessel 50% stenosis distal 50% stenosis. The posterior descending artery and posterolateral branch are both large vessel The SOTO ventriculogram reveals Dilated ventricle ejection fraction 45% The left ventricular end-diastolic pressure 25 mmHg IMPRESSION Severe coronary disease as described above accompanied by left ventricular dysfunction and reduced ejection fraction Elevated LVEDP PLAN 1. Recommend aspirin and high intensity statin therapy 2. Patient will be referred for surgical revascularization [facility] 3. Start Entresto beta-blockers 4. Aggressive risk factor modification Electronically signed by : Earl Polanco MD 12/27/2024 12:24:28
[2024-12-27 09:13] LABS: Basophils % 0.5 % (0.1-2.0); Eosinophils # 0.1 K/mm3 (0.0-0.4); Eosinophils % 0.9 % (0.1-12.0); Hematocrit 41.7 % (42.0-52.0); Hemoglobin 13.6 g/dL (14.1-18.0); Lymphocytes # 1.7 K/mm3 (0.7-4.5); Lymphocytes % 19.3 % (10-50); Mean Corpuscular HGB Conc 32.6 g/dL (31.8-35.4); Mean Corpuscular Hemoglobin 27.7 pg (27.0-31.2); Mean Corpuscular Volume 84.9 fl (80-94); Mean Platelet Volume 9.9 fl (7.4-10.4); Monocytes # 0.4 K/mm3 (0.1-1.0); Monocytes % 4.6 % (1.7-9.3); Neutrophils # 6.4 K/mm3 (1.8-7.8); Neutrophils % 74.6 % (37.0-80.0); Platelet Count 244 K/mm3 (142-424); Red Blood Count 4.91 M/mm3 (4.60-6.20); Red Cell Distribution Width 15.3 % (11.5-17.5); White Blood Count 8.5 K/mm3 (4.8-10.8)
[2024-12-27 09:27] LABS: Chloride 95 mmol/L (98-107); Sodium 135 mmol/L (136-145)
[2024-12-27 09:29] LABS: Blood Urea Nitrogen 22 mg/dl (9-20); Creatinine Clearance Estimated 160 mL/min (50-200); Estimated Glomerular Filt Rate 101 ml/min (>60); GFR (African American) 122 ML/MIN (>60)
[2024-12-27 09:30] LABS: Calcium 9.3 mg/dl (8.4-10.2); Carbon Dioxide 37 mmol/L (22.0-30.0); Glucose 366 mg/dl (74-100)
[2024-12-27] MEDS: VERAPAMIL 2.5MG/ML 2ML VIAL 2.5 MG IV (11:31)
[2024-12-27] MEDS: HEPARIN 1,000 UNITS/ML 10ML VIAL (CATH LAB) 10000 UNIT IV (11:31)
[2024-12-27] MEDS: HEPARIN 1,000 UNITS/500ML NS (CATH LAB) 3000 UNIT IV (11:32)
[2024-12-27] MEDS: LIDOCAINE 1% 10ML MDV 20 ML IJ (11:32)
[2024-12-27] MEDS: diphenhydrAMINE 50MG/ML VIAL 50 MG IV (11:32)
[2024-12-27] MEDS: 0.9 % SODIUM CHLORIDE 500 ML 25 ML IV (11:32)
[2024-12-27] MEDS: NITROGLYCERIN 800MCG/8ML SYR (CATH LAB) 800 MCG IA (11:33)
[2024-12-27] MEDS: FENTANYL 100MCG/2ML VIAL 50 MCG IV (12:03)
[2024-12-27] MEDS: MIDAZOLAM HCL 1MG/ML 5ML VIAL 1 MG IV (12:03)
[2024-12-27] MEDS: IOPAMIDOL-370 (76%);100ML BOTTLE 70 ML IV (14:13)
== END 2024-12-27 13:10 | disposition home or self-care (01) ==
PROVIDERS: PCP Physician Assistant; Visit Provider Internal Medicine
DX: I25.118 Atherosclerotic heart disease of native coronary artery with other forms of angina pectoris (principal); R93.1 Abnormal findings on diagnostic imaging of heart and coronary circulation; I10 Essential (primary) hypertension; E78.5 Hyperlipidemia, unspecified; E11.9 Type 2 diabetes mellitus without complications; E55.9 Vitamin D deficiency, unspecified; F17.210 Nicotine dependence, cigarettes, uncomplicated; Z88.0 Allergy status to penicillin; Z88.1 Allergy status to other antibiotic agents; Z88.8 Allergy status to other drugs, medicaments and biological substances; Z79.84 Long term (current) use of oral hypoglycemic drugs; Z79.899 Other long term (current) drug therapy; D47.2 Monoclonal gammopathy
CPT/HCPCS: 80048; 85025; 93458; 99152; C1725; C1760; C1769; J1200; J1644; J3010; Q9967

== ENCOUNTER 2024-12-31 14:26 | Outpatient (RCR) | payer BC, SELFPAY | END 2024-12-31 23:59 | disposition home or self-care (01) | LOC: PT 14:26 | PROVIDERS: Visit Provider Physician Assistant | DX: M86.9 Osteomyelitis, unspecified (principal) ==

== ENCOUNTER 2025-01-09 08:45 | Day surgery (SDC) | payer OTHER, SELFPAY ==
[2025-01-09] VITALS (11 sets, daily range): BP systolic 95–154; BP diastolic 54–106; PULSE 74–100; RESP 16–20; TEMP 36.1–36.4; O2SAT 95–99; BMI 25.0
--- NOTE | 2025-01-09 07:10 | IR_ITS ---
APPROVED REPORT Patient Location: Outpatient PROCEDURES Drug-eluting stent deployment to the proximal circumflex artery extending into the first obtuse marginal artery Drug-eluting stent deployment to the proximal and mid LAD INDICATION Coronary artery disease, Angina pectoris, Reduced ejection fraction Informed consent was obtained prior to the procedure. COMPLICATIONS NONE Estimated Blood Loss: LESS THAN 10 ML TECHNIQUE One percent lidocaine used to anesthetize the right anterior aspect of the wrist. The right radial artery was accessed via the Seldinger technique. A 6 [place] sheath was placed in the right radial artery. 2.5 mg of Verapamil, 800 mcg of nitroglycerin, 1mg Lidocaine and 5000 U Heparin were given through the arterial sheath. The 6 [place] JL 3 guide catheter was used to perform selective coronary angiogram. Therapeutic heparin had been administered in the cocktail and the ACT was out of range. The guide catheter was used to intubate the left main artery and a Choice PT extra-support wire was placed into the circumflex artery. Predilatation with a 2.5 mm balloon was performed at 20 kelli to predilate the stenosis. A guide liner was advanced and a 3 mm x 38 mm [place] frontier stent was deployed at 20 kelli reducing the critical stenosis to 0% DELMIS-3 flow was present before and after the procedure. The guide liner was pulled back to the left main artery and the wire was placed into the LAD. Predilatation was made because primary stenting could not be performed. A 2.5 x 12 mm balloon was used to predilate the mid LAD stenosis. A 2.5 x 26 mm [place] frontier stent was then deployed at 20 kelli in the mid LAD extending back into the proximal LAD. A 3.25 x 15 mm noncompliant balloon was then deployed at 20 kelli just proximal to the first diagonal artery to post dilate and the to the proximal LAD. DELMIS-3 flow was present before and after the procedure. At the end of the procedure 800 mcg of intracoronary nitroglycerin was injected which demonstrated wide patency of the circumflex artery LAD and diagonal artery. After achieving excellent angiograph results the apparatus was removed the sheath was removed and hemostasis was achieved using TR banding patient was transferred to the postop putting in stable condition IMPRESSION Successful stenting of the proximal to mid LAD critical disease reduced to 0% with 1 drug-eluting stent Successful stenting of the proximal to mid circumflex artery critical disease reduced to 0% with 1 drug-eluting stent PLAN 1. Plavix and aspirin 2. Patient remains hyperglycemic and needs tighter control of diabetes. Recommend starting insulin 3. LDL less than 55 to be achieved with high intensity statin 4. Cardiac rehabilitation 5. Avoidance of tobacco products 6. Risk factor modification Electronically signed by : Earl Polanco MD 01/09/2025 11:01:24
[2025-01-09 09:03] LABS: Basophils % 0.5 % (0.1-2.0); Eosinophils # 0.1 K/mm3 (0.0-0.4); Eosinophils % 1.4 % (0.1-12.0); Hematocrit 46.3 % (42.0-52.0); Hemoglobin 15.3 g/dL (14.1-18.0); Mean Corpuscular Hemoglobin 27.8 pg (27.0-31.2); Mean Corpuscular Volume 84.2 fl (80-94); Mean Platelet Volume 10.2 fl (7.4-10.4); Monocytes # 0.4 K/mm3 (0.1-1.0); Nucleated Red Blood Cells # 0 10^3/uL; Nucleated Red Blood Cells % 0 %; Platelet Count 210 K/mm3 (142-424); Red Cell Distribution Width 14.8 % (11.5-17.5); Red Cell Distribution Width-SD 45.4 fL; White Blood Count 8.6 K/mm3 (4.8-10.8)
[2025-01-09 09:09] LABS: Chloride 91 mmol/L (98-107); Potassium 4.3 mmoL/L (3.5-5.1); Sodium 135 mmol/L (136-145)
[2025-01-09 09:12] LABS: Anion Gap 10.3 mEq/L (5-15); Blood Urea Nitrogen 23 mg/dl (9-20); Carbon Dioxide 38 mmol/L (22.0-30.0); Creatinine Clearance Estimated 113 mL/min (50-200); Estimated Glomerular Filt Rate 88 ml/min (>60); GFR (African American) 107 ML/MIN (>60)
[2025-01-09 09:13] LABS: Calcium 9.1 mg/dl (8.4-10.2)
[2025-01-09 09:14] LABS: Glucose 445 mg/dl (74-100)
--- NOTE | 2025-01-09 09:14 | SUR.PREOP ---
LAB CALLED WITH CRITICAL RESULT GLUCOSE [id number] DR AYERS AWARE
[2025-01-09] MEDS: LIDOCAINE 1% 10ML MDV 10 ML IJ (10:06)
[2025-01-09] MEDS: HEPARIN 1,000 UNITS/500ML NS (CATH LAB) 3000 UNIT IV (10:06)
[2025-01-09] MEDS: 0.9 % SODIUM CHLORIDE 500 ML 25 ML IV (10:06)
[2025-01-09] MEDS: VERAPAMIL 2.5MG/ML 2ML VIAL 2.5 MG IV (10:07)
[2025-01-09] MEDS: HEPARIN 1,000 UNITS/ML 10ML VIAL (CATH LAB) 5000 UNIT IV (10:07)
[2025-01-09] MEDS: NITROGLYCERIN 800MCG/8ML SYR (CATH LAB) 800 MCG IA (10:07)
[2025-01-09] MEDS: MIDAZOLAM HCL 1MG/ML 5ML VIAL 1 MG IV (10:15)
[2025-01-09] MEDS: FENTANYL 100MCG/2ML VIAL 50 MCG IV (10:15)
[2025-01-09] MEDS: CLOPIDOGREL 300MG TABLET 600 MG PO ×2 (10:56→11:16)
[2025-01-09] MEDS: humaLOG 100 UNITS/ML 10ML VIAL (SSI) 15 UNIT SUBCUT (11:16)
[2025-01-09 12:07] LABS: POC Glucose,Bedside 457 (70-110)
[2025-01-09 14:05] LABS: POC Glucose,Bedside 373 (70-110)
[2025-01-09] MEDS: IOPAMIDOL-370 (76%);100ML BOTTLE 110 ML IV (14:57)
[2025-01-09 15:55] LABS: CATHL Activated Clotting Time > 400 SEC (74-125)
== END 2025-01-09 14:12 | disposition home or self-care (01) ==
PROVIDERS: PCP Physician Assistant; Visit Provider Internal Medicine
DX: I25.118 Atherosclerotic heart disease of native coronary artery with other forms of angina pectoris (principal); R93.1 Abnormal findings on diagnostic imaging of heart and coronary circulation; Z95.5 Presence of coronary angioplasty implant and graft; E11.22 Type 2 diabetes mellitus with diabetic chronic kidney disease; I13.0 Hypertensive heart and chronic kidney disease with heart failure and stage 1 through stage 4 chronic kidney disease, or unspecified chronic kidney disease; E55.9 Vitamin D deficiency, unspecified; E78.5 Hyperlipidemia, unspecified; I50.31 Acute diastolic (congestive) heart failure; Z88.0 Allergy status to penicillin; Z88.1 Allergy status to other antibiotic agents; Z88.8 Allergy status to other drugs, medicaments and biological substances; N18.1 Chronic kidney disease, stage 1; D47.2 Monoclonal gammopathy
CPT/HCPCS: 80048; 82962; 85025; 85347; 92928; 99152; 99153; C1725; C1769; C1874; C9600; J1644; J3010; Q9967

== ENCOUNTER 2025-01-22 11:27 | Outpatient (CLI) | payer OTHER, SELFPAY ==
[2025-01-22 12:42] LABS: Albumin Level 3.5 g/dl (3.5-5.0)
[2025-01-22 12:45] LABS: Alanine Aminotransferase 19 U/L (12-78); Alkaline Phosphatase 88 U/L (38-126); Aspartate Amino Transferase 27 U/L (17-59); Bilirubin,Indirect 0.4 mg/dL (0.0-0.9); Bilirubin,Total 0.4 mg/dl (0.2-1.3); Bilirubin,Unconjugated 0.5 mg/dL (0.0-1.1); Chol/HDL Ratio 2.8 (1-3.5); Cholesterol 125 mg/dl (140-200); HDL Cholesterol 44 mg/dl (40-60); Total Protein,Serum 6.8 g/dl (6.3-8.2); Triglycerides 184 mg/dl (30-150); VLDL Cholesterol 37 mg/dL (0-40)
[2025-01-22 12:56] LABS: Direct LDL Cholesterol 49.73 mg/dL (100-129)
== END 2025-01-22 23:59 | disposition home or self-care (01) ==
LOC: LAB 11:28
PROVIDERS: PCP Physician Assistant; Visit Provider Physician Assistant
DX: I11.9 Hypertensive heart disease without heart failure (principal); I25.10 Atherosclerotic heart disease of native coronary artery without angina pectoris; E78.5 Hyperlipidemia, unspecified; E03.9 Hypothyroidism, unspecified; F17.210 Nicotine dependence, cigarettes, uncomplicated
CPT/HCPCS: 36415; 80061; 80076